=== PATIENT | male | born 1945 ===

== ENCOUNTER 2017-11-23 15:46 | Emergency (ER) | payer MEDICAID, MEDICARE ==
[2017-11-23 16:00] VITALS: BP 127/72; PULSE 51; RESP 16; TEMP 96.6; O2SAT 97
[2017-11-23] MEDS ORDERED: Iohexol 240 (50 ml) PO ONE (16:17)
--- NOTE | 2017-11-23 16:39 | ED PDOC ---
HPI: Abdomen Time Seen by Provider: 11/23/17 16:05 Chief Complaint (Nursing): Abdominal Pain Chief Complaint (Provider): Abdominal Pain History Per: Patient History/Exam Limitations: no limitations Onset/Duration Of Symptoms: Days (x3) Current Symptoms Are (Timing): Still Present Additional Complaint(s): 72 year old male with a past medical history of diabetes, who presents to the ED complaining of abdominal pain with associated chills, loss of appetite, nausea, malaise, fatigue, and generalized weakness x3 days. States pain is constant, has worsened since onset, and is localized to the RLQ. Denies fever, vomiting, diarrhea, constipation, black or bloody stools, or urinary symptoms. Says he was seen by his PMD today in [place], who advised he present to the ER for evaluation. PMD: Dr. Alexa Garduno Past Medical History Reviewed: Historical Data, Nursing Documentation, Vital Signs Vital Signs: Last Vital Signs Temp 96.6 F L 11/23/17 15:55 Pulse 51 L 11/23/17 15:55 Resp 16 11/23/17 15:55 BP 127/72 11/23/17 15:55 Pulse Ox 97 11/23/17 16:44 - Medical History PMH: Diabetes - Surgical History Other surgeries: Abdominal surgery - Family History Family History: States: Diabetes - Social History Current smoker - smoking cessation education provided: No Alcohol: None - Allergies Allergies/Adverse Reactions: Allergies Allergy/AdvReac Type Severity Reaction Status Date / Time No Known Allergies Allergy Verified 11/23/17 15:54 Review of Systems ROS Statement: Except As Marked, All Systems Reviewed And Found Negative (as per HPI) ENT: Positive for: Throat Pain Respiratory: Positive for: Cough (mild) - Laboratory Results Result Diagrams: 11/23/17 16:55 11/23/17 16:55 - ECG O2 Sat by Pulse Oximetry: 97 (RA) Pulse Ox Interpretation: Normal Medical Decision Making Medical Decision Making: Time: 16:17 Initial Impression: Abdominal pain. Differential diagnoses include, but are not limited to appendicitis, colitis, enteritis, dehydration, and sepsis Initial Plan: --CT Abdomen and pelvis w/ contrast --EKG --CMP --Lipase --TSH --Urine dipstick --CBC w/ differential --Iohexol 50 ml PO --Blood culture --Urine culture --IV Insertion --Glucose, Blood, POC --Urinalysis --Reevaluation Time: 20:46 CT Abdomen and Pelvis Findings: Lower thorax: Heart size is normal. There are postsurgical changes at the gastroesophageal junction. There is minimal scarring at the lung bases ABDOMEN: Liver: There is fatty infiltration of the liver. Gallbladder and bile ducts: unremarkable Pancreas: Pancreas is mildly atrophic. Spleen: unremarkable Adrenals: There is mild thickening of the right adrenal. There is diffuse thickening of the left adrenal. Kidneys and ureters: There are bilateral renal cysts.Kidneys and ureters are otherwise unremarkable. Stomach and bowel: There is been partial gastrectomy. There is a gastrojejunal anastomosis in the left upper quadrant. Jacqueline loop decompressed. There is no small bowel obstruction. Terminal ileum is unremarkable.structure suggestive of normal caliber appendix is identified in the right lower quadrant. There is no pericecal inflammation. There is a 1.9 x 2.4 cm soft tissue mass in the right lower quadrant adjacent to the base of the cecum which appears extrinsic to the cecum. Colon is incompletely distended which limits evaluation. A loop of sigmoid extends into a nonobstructing left inguinal hernia. Appendix: See stomach and bowel PELVIS: Bladder: Bladder is almost completely empty. There is mild bladder wall prominence. Reproductive: Prostate is mildly enlarged. There is prominence of seminal vesicles. ABDOMEN and PELVIS: Intraperitoneal space: There is no free air or free fluid. Bones/joints: There are degenerative changes in the osseus structures. Soft tissues: There is a small nonobstructing left inguinal hernia containing sigmoid. Vasculature: There are vascular calcifications. Aorta is mildly ectatic. Lymph nodes: There is no para-aortic adenopathy. IMPRESSION: Fatty liver; bilateral adrenal thickening left greater than right, no acute solid visceral abnormality; partial gastrectomy with gastrojejunal anastomosis, no small bowel obstruction; soft tissue mass in the right lower quadrant adjacent to the base of the cecum difficult to further characterize; nonobstructing left inguinal hernia containing sigmoid Additional nonemergent findings as described above. Scribe Attestation: Documented by Wesly Valentin, acting as a scribe for Any Almanza MD. Provider Scribe Attestation: All medical record entries made by the Scribe were at my direction and personally dictated by me. I have reviewed the chart and agree that the record accurately reflects my personal performance of the history, physical exam, medical decision making, and the department course for this patient. I have also personally directed, reviewed, and agree with the discharge instructions and disposition. Disposition - Clinical Impression Clinical Impression: Abdominal mass - Disposition Condition: UNKNOWN Instructions: Against Medical Advice (ED) Forms: [employer] (Bulgarian) Print Language: LAO
[2017-11-23 17:10] LABS: BASO % 0.8 % (0.0-2.0); EOS % 0.3 % (0.0-4.0); HEMOGLOBIN 15.9 g/dL (12.0-18.0); LYMPH % 22.9 % (20.0-40.0); MEAN CELL VOLUME 95.4 fl (80.0-94.0); MEAN CORPUSCULAR HEMOGLOBIN 31.4 pg (27.0-31.0); MEAN PLATELET VOLUME 7.4 fl (7.2-11.7); MONO # 0.8 K/uL (0.0-0.8); MONO % 17.9 % (0.0-10.0); NEUT # 2.6 K/uL (1.8-7.0); NEUT % 58.1 % (50.0-75.0); NRBC % 0.2 % (0.0-0.0); RBC 5.07 Mil/uL (4.40-5.90); RED CELL DISTRIBUTION WIDTH 12.1 % (11.5-14.5); WHITE BLOOD COUNT 4.5 K/uL (4.8-10.8)
[2017-11-23] MEDS ORDERED: Iohexol 240 (50 ml) ONE (17:16)
[2017-11-23 17:54] LABS: ALB/GLOB RATIO 1.3 (1.0-2.1); ALBUMIN 4.2 g/dL (3.5-5.0); ALT/SGPT 33 U/L (21-72); AST/SGOT 77 U/L (17-59); BLOOD UREA NITROGEN 19 mg/dl (9-20); CALCIUM 8.6 mg/dL (8.4-10.2); GFR AFRICAN-AMERICAN > 60; GFR NON-AFRICAN AMERICAN > 60
[2017-11-23 19:08] LABS: SQUAMOUS EPITHIAL < 1 /hpf (0-5); URINE BACTERIA RARE (<OCC); URINE BILIRUBIN NEGATIVE (NEGATIVE); URINE BLOOD SMALL (NEGATIVE); URINE CLARITY SLIGHTY-CLOUDY (Clear); URINE COLOR YELLOW (YELLOW); URINE GLUCOSE (UA) NEG (Normal); URINE LEUKOCYTE ESTERASE NEG Leu/uL (Negative); URINE NITRATE NEGATIVE (NEGATIVE); URINE PROTEIN NEGATIVE (NEGATIVE); URINE UROBILINOGEN 0.2-1.0 mg/dL (0.2-1.0)
[2017-11-23] MEDS ORDERED: Iohexol 300 100 ML IJ ONE (19:11)
[2017-11-23] MEDS ORDERED: Sodium Chloride 0.9% 50 ML IV ONE (19:11)
[2017-11-23 19:19] LABS: LIPASE 65 U/L (23-300)
--- NOTE | 2017-11-23 20:46 | CT ---
EXAM: CT Abdomen and Pelvis With Intravenous Contrast EXAM DATE/TIME: 11/23/2017 4:17 PM CLINICAL HISTORY: 72 years old, male; Pain; Abdominal pain; Localized; Right lower quadrant (rlq); Additional info: Abd pain rlq. Sent phy. Doc. TECHNIQUE: Axial computed tomography images of the abdomen and pelvis with intravenous contrast. All CT scans at this facility use one or more dose reduction techniques, viz.: automated exposure control; ma/kV adjustment per patient size (including targeted exams where dose is matched to indication; i.e. head); or iterative reconstruction technique. Coronal and sagittal reformatted images were created and reviewed. CONTRAST: 80 mL of [id number] administered intravenously. COMPARISON: CT ABD/PELV W/IV CONTR 2012-06-12 23:36 FINDINGS: Lower thorax: Heart size is normal. There are postsurgical changes at the gastroesophageal junction. There is minimal scarring at the lung bases ABDOMEN: Liver: There is fatty infiltration of the liver. Gallbladder and bile ducts: unremarkable Pancreas: Pancreas is mildly atrophic. Spleen: unremarkable Adrenals: There is mild thickening of the right adrenal. There is diffuse thickening of the left adrenal. Kidneys and ureters: There are bilateral renal cysts.Kidneys and ureters are otherwise unremarkable. Stomach and bowel: There is been partial gastrectomy. There is a gastrojejunal anastomosis in the left upper quadrant. Jacqueline loop decompressed. There is no small bowel obstruction. Terminal ileum is unremarkable.structure suggestive of normal caliber appendix is identified in the right lower quadrant. There is no pericecal inflammation. There is a 1.9 x 2.4 cm soft tissue mass in the right lower quadrant adjacent to the base of the cecum which appears extrinsic to the cecum. Colon is incompletely distended which limits evaluation. A loop of sigmoid extends into a nonobstructing left inguinal hernia. Appendix: See stomach and bowel PELVIS: Bladder: Bladder is almost completely empty. There is mild bladder wall prominence. Reproductive: Prostate is mildly enlarged. There is prominence of seminal vesicles. ABDOMEN and PELVIS: Intraperitoneal space: There is no free air or free fluid. Bones/joints: There are degenerative changes in the osseus structures. Soft tissues: There is a small nonobstructing left inguinal hernia containing sigmoid. Vasculature: There are vascular calcifications. Aorta is mildly ectatic. Lymph nodes: There is no para-aortic adenopathy. IMPRESSION: Fatty liver; bilateral adrenal thickening left greater than right, no acute solid visceral abnormality; partial gastrectomy with gastrojejunal anastomosis, no small bowel obstruction; soft tissue mass in the right lower quadrant adjacent to the base of the cecum difficult to further characterize; nonobstructing left inguinal hernia containing sigmoid Additional nonemergent findings as described above.
--- NOTE | 2017-11-24 18:13 | CARD ---
APPROVED REPORT EKG Measurement Heart [id number] <Conclusion> Sinus bradycardia Otherwise normal ECG
== END 2017-11-23 21:10 | disposition left against medical advice (07) ==
LOC: H.ER 15:46
DX: R10.9 Unspecified abdominal pain (principal); E11.9 Type 2 diabetes mellitus without complications
CPT/HCPCS: 74177; 80053; 81003; 82948; 83690; 84443; 85025; 87040; 87086; 93005; 99284; Q9966; Q9967

== ENCOUNTER 2017-11-24 07:04 | Emergency (ER) | payer MEDICARE, MEDICAID ==
[2017-11-24 07:26] VITALS: RESP 16; TEMP 97.7
[2017-11-24 07:27] VITALS: BMI 18.1
--- NOTE | 2017-11-24 08:35 | ED PDOC ---
HPI: Abdomen Time Seen by Provider: 11/24/17 07:40 Chief Complaint (Nursing): Abdominal Pain Chief Complaint (Provider): Abdominal Pain History Per: Patient History/Exam Limitations: no limitations Onset/Duration Of Symptoms: Days (x4) Additional Complaint(s): 72 year old male with medical history of diabetes, who presents to the emergency department with a complaint of lower abdominal pain associated with nausea and subjective fever ongoing for 4 days. Denied any vomiting, diarrhea, difficulty urinating, bloody urine, leg pain or swelling. Of note, patient was seen yesterday in ED for similar complaints but discharged AMA with notification of possible cancer seen on CT scan. PMD: Alexa Garduno MD Past Medical History Reviewed: Historical Data, Nursing Documentation, Vital Signs Vital Signs: Last Vital Signs Temp 97.7 F 11/24/17 07:40 Pulse 56 L 11/24/17 07:40 Resp 16 11/24/17 07:40 BP 106/67 11/24/17 07:40 Pulse Ox 97 11/24/17 10:05 - Medical History PMH: Diabetes - Surgical History Surgical History: Denies: No Surg Hx - Family History Family History: States: Diabetes - Social History Current smoker - smoking cessation education provided: No Alcohol: None Drugs: Denies - Allergies Allergies/Adverse Reactions: Allergies Allergy/AdvReac Type Severity Reaction Status Date / Time No Known Allergies Allergy Verified 11/23/17 15:54 Review of Systems ROS Statement: Except As Marked, All Systems Reviewed And Found Negative Constitutional: Positive for: Fever (subjective) Gastrointestinal: Positive for: Nausea, Abdominal Pain (lower). Negative for: Vomiting, Diarrhea Genitourinary Male: Negative for: Dysuria, Hematuria Musculoskeletal: Negative for: Leg Pain (or swelling) Physical Exam - Reviewed Nursing Documentation Reviewed: Yes Vital Signs Reviewed: Yes - Physical Exam Appears: Positive for: No Acute Distress Head Exam: Positive for: ATRAUMATIC, NORMAL INSPECTION, NORMOCEPHALIC Neck: Positive for: Normal, Painless ROM, Supple. Negative for: Decreased ROM Cardiovascular/Chest: Positive for: Regular Rate, Rhythm, Chest Non Tender, Other (barrel chest noted) Respiratory: Positive for: Normal Breath Sounds. Negative for: Decreased Breath Sounds, Respiratory Distress Pulses-Radial (L): 2+ Pulses-Radial (R): 2+ Gastrointestinal/Abdominal: Positive for: Soft, Tenderness (RLQ > LLQ). Negative for: Normal Exam Extremity: Positive for: Normal ROM (upper/lower), Deformity (clubbing of fingers), Other (5/5 ankle strength). Negative for: Pedal Edema Neurologic/Psych: Positive for: Alert (x2), Oriented. Negative for: Motor/ Sensory Deficits - Laboratory Results Result Diagrams: 11/24/17 09:24 11/24/17 09:24 - ECG O2 Sat by Pulse Oximetry: 97 (RA) Pulse Ox Interpretation: Normal Medical Decision Making Medical Decision Making: Initial Impression: Abdominal pain Initial Plan: * EKG * CMP * Lipase * CBC * Xray obstructive series * NS 1,000ml IV per 1,000mls/hr ____ CT Abdomen and Pelvis (11/23/17) Findings: Lower thorax: Heart size is normal. There are postsurgical changes at the gastroesophageal junction. There is minimal scarring at the lung bases ABDOMEN: Liver: There is fatty infiltration of the liver. Gallbladder and bile ducts: unremarkable Pancreas: Pancreas is mildly atrophic. Spleen: unremarkable Adrenals: There is mild thickening of the right adrenal. There is diffuse thickening of the left adrenal. Kidneys and ureters: There are bilateral renal cysts.Kidneys and ureters are otherwise unremarkable. Stomach and bowel: There is been partial gastrectomy. There is a gastrojejunal anastomosis in the left upper quadrant. Jacqueline loop decompressed. There is no small bowel obstruction. Terminal ileum is unremarkable.structure suggestive of normal caliber appendix is identified in the right lower quadrant. There is no pericecal inflammation. There is a 1.9 x 2.4 cm soft tissue mass in the right lower quadrant adjacent to the base of the cecum which appears extrinsic to the cecum. Colon is incompletely distended which limits evaluation. A loop of sigmoid extends into a nonobstructing left inguinal hernia. Appendix: See stomach and bowel PELVIS: Bladder: Bladder is almost completely empty. There is mild bladder wall prominence. Reproductive: Prostate is mildly enlarged. There is prominence of seminal vesicles. ABDOMEN and PELVIS: Intraperitoneal space: There is no free air or free fluid. Bones/joints: There are degenerative changes in the osseus structures. Soft tissues: There is a small nonobstructing left inguinal hernia containing sigmoid. Vasculature: There are vascular calcifications. Aorta is mildly ectatic. Lymph nodes: There is no para-aortic adenopathy. IMPRESSION: Fatty liver; bilateral adrenal thickening left greater than right, no acute solid visceral abnormality; partial gastrectomy with gastrojejunal anastomosis, no small bowel obstruction; soft tissue mass in the right lower quadrant adjacent to the base of the cecum difficult to further characterize; nonobstructing left inguinal hernia containing sigmoid Additional nonemergent findings as described above. Scribe Attestation: Documented by Claudia Heller, acting as a scribe for Shira Matos MD. Provider Scribe Attestation: All medical record entries made by the Scribe were at my direction and personally dictated by me. I have reviewed the chart and agree that the record accurately reflects my personal performance of the history, physical exam, medical decision making, and the department course for this patient. I have also personally directed, reviewed, and agree with the discharge instructions and disposition. Disposition - Clinical Impression Clinical Impression: Abdominal pain - Patient ED Disposition Is Patient to be Admitted: No Doctor Will See Patient In The: Office Counseled Patient/Family Regarding: Diagnosis, Need For Followup - Disposition Referrals: Alexa Garduno MD [Medical Doctor] - Disposition Time: 13:53 Condition: STABLE Additional Instructions: normal labs CT abdomen 11/23/2017 Abd US 11/24/2017 Obstructive series done 11/24/2017 Blood tests: 11/23/17 and 11/24/2017 Instructions: Abdominal Pain (ED) Forms: [employer] (Malay) Print Language: UKRAINIAN - POA Present On Arrival: None
[2017-11-24] MEDS ORDERED: Sodium Chloride 0.9% 1,000 ML IV STA (08:47)
[2017-11-24 09:27] LABS: EOS % 0.6 % (0.0-4.0); HEMOGLOBIN 15.1 g/dL (12.0-18.0); LYMPH # 1.2 K/uL (1.0-4.3); LYMPH % 30.2 % (20.0-40.0); MEAN CORPUSCULAR HEMOGLOBIN 31.4 pg (27.0-31.0); MEAN CORPUSCULAR HGB CONC 33.1 g/dL (33.0-37.0); MEAN PLATELET VOLUME 7.5 fl (7.2-11.7); MONO # 0.7 K/uL (0.0-0.8); NEUT % 50.2 % (50.0-75.0); RBC 4.8 Mil/uL (4.40-5.90); RED CELL DISTRIBUTION WIDTH 11.9 % (11.5-14.5)
[2017-11-24 09:53] LABS: ALB/GLOB RATIO 1.2 (1.0-2.1); ALBUMIN 3.5 g/dL (3.5-5.0); ALT/SGPT 47 U/L (21-72); AST/SGOT 49 U/L (17-59); BLOOD UREA NITROGEN 19 mg/dl (9-20); CALCIUM 8.7 mg/dL (8.4-10.2); GFR AFRICAN-AMERICAN > 60; GFR NON-AFRICAN AMERICAN > 60; LIPASE 78 U/L (23-300)
--- NOTE | 2017-11-24 11:15 | RAD ---
PROCEDURE: Radiographs of the chest and abdomen (obstructive series) HISTORY: abd pain COMPARISON: No prior. TECHNIQUE: AP radiograph of the chest, with upright and supine radiographs of the abdomen. FINDINGS: CHEST: Lungs: Hyperinflated lungs. Clear. Cardiovascular: Atherosclerotic aortic calcifications. Normal size heart. No pulmonary vascular congestion. Pleura: Flattened diaphragms. No pleural fluid. No pneumothorax. Other findings: None. ABDOMEN AND PELVIS: Bowel: Unremarkable bowel gas pattern. Retained enteric contrast in the descending and rectosigmoid colon. No evidence of mechanical obstruction. Free air: None. Bones: Unremarkable. Other findings: Epigastric region surgical clips. Excreted intravenous contrast in the urinary bladder. IMPRESSION: Unremarkable radiographs of chest and abdomen. No evidence of mechanical bowel obstruction.
--- NOTE | 2017-11-24 12:48 | US ---
PROCEDURE: Ultrasound of the Bladder HISTORY: RLQ tenderness, density on CT scan yesterday COMPARISON: None available. TECHNIQUE: Sonographic evaluation of the bladder an prostate was performed. FINDINGS: Urinary bladder contains internal mobile debris. No calculus or gross mass lesion. No free fluid in pelvis. Prevoid Volume: 187 cc. Post void residual: 178 cc. Prostate is heterogeneous and measures 5.4 x 4.6 x 4.5 centimeter compatible with volume of 57.7 mL. Peristalsing bowel seen in the right lower quadrant. IMPRESSION: Peristalsing bowel seen in the right lower quadrant. Enlarged, heterogeneous prostate. Mobile debris in the bladder.
[2017-11-24 14:21] VITALS: BP 114/60; PULSE 50; O2SAT 96
--- NOTE | 2017-11-24 18:07 | CARD ---
APPROVED REPORT EKG Measurement Heart [id number] <Conclusion> Sinus bradycardia Rightward axis Borderline ECG
== END 2017-11-24 14:20 | disposition home or self-care (01) ==
LOC: H.ER 07:04
DX: R10.9 Unspecified abdominal pain (principal); R11.0 Nausea; E11.9 Type 2 diabetes mellitus without complications; K76.0 Fatty (change of) liver, not elsewhere classified
CPT/HCPCS: 74022; 76856; 80053; 83690; 85025; 93005; 96360; 99283; J7040

== ENCOUNTER 2018-07-14 16:13 | Inpatient (IN) | payer MEDICARE, MEDICAID ==
--- NOTE | 2018-07-14 16:47 | ED PDOC ---
HPI: Chest Pain Time Seen by Provider: 07/14/18 16:29 Chief Complaint (Nursing): Chest Pain Chief Complaint (Provider): Chest Pain History Per: Patient History/Exam Limitations: no limitations Onset/Duration Of Symptoms: Days (x2) Current Symptoms Are (Timing): Still Present Additional Complaint(s): 73 year old female, with a past medical history of diabetes, presenting for evaluation of intermittent left sided chest pain x2 days. Patient denies any shortness of breath or nausea. Patient reports taking daily Aspirin. PMD: Dr. Toure ([place]) Past Medical History Reviewed: Historical Data, Nursing Documentation, Vital Signs Vital Signs: Last Vital Signs Temp 97.8 F 07/15/18 12:47 Pulse 55 L 07/15/18 12:47 Resp 20 07/15/18 12:47 BP 118/75 07/15/18 12:47 Pulse Ox 99 07/15/18 12:47 - Medical History PMH: Diabetes - Family History Family History: States: Diabetes - Social History Current smoker - smoking cessation education provided: No Alcohol: None - Home Medications Home Medications: Ambulatory Orders Medication Instructions Recorded Aspirin [Adult Low Dose Aspirin EC] 81 mg PO DAILY 07/14/18 Cholecalciferol [Vitamin D 1000 IU] 5,000 iu PO ONCE 07/14/18 SITagliptin [Januvia] 100 mg PO DAILY 07/14/18 - Allergies Allergies/Adverse Reactions: Allergies Allergy/AdvReac Type Severity Reaction Status Date / Time No Known Allergies Allergy Verified 07/14/18 16:24 LUIS M Risk Score for UA/NSTEMI - LUIS M Risk Score Age > 64: YES 3 or more CAD Risk Factors: NO Known CAD (Stenosis greater than 50%): NO Aspirin use in past 7 days: YES Severe Angina: NO EKG ST changes greater than 0.5mm: NO Positive Cardiac Marker: NO LUIS M Score: 2 Risk %: 8% Review of Systems ROS Statement: Except As Marked, All Systems Reviewed And Found Negative Cardiovascular: Positive for: Chest Pain (left sided) Respiratory: Negative for: Shortness of Breath Gastrointestinal: Negative for: Nausea Physical Exam - Reviewed Nursing Documentation Reviewed: Yes Vital Signs Reviewed: Yes - Physical Exam Appears: Positive for: Non-toxic, No Acute Distress (patient appears thin) Head Exam: Positive for: ATRAUMATIC, NORMAL INSPECTION, NORMOCEPHALIC Skin: Positive for: Normal Color, Warm, Dry. Negative for: Rash Eye Exam: Positive for: EOMI, Normal appearance, PERRL ENT: Positive for: Normal ENT Inspection Neck: Positive for: Normal, Painless ROM, Supple Cardiovascular/Chest: Positive for: Regular Rate, Rhythm. Negative for: Murmur Respiratory: Positive for: Normal Breath Sounds. Negative for: Respiratory Distress Gastrointestinal/Abdominal: Positive for: Normal Exam, Soft. Negative for: Tenderness Back: Positive for: Normal Inspection. Negative for: L CVA Tenderness, Vertebral Tenderness Extremity: Positive for: Normal ROM. Negative for: Pedal Edema, Deformity Neurologic/Psych: Positive for: Alert, Oriented (x3). Negative for: Motor/ Sensory Deficits - Laboratory Results Result Diagrams: 07/14/18 17:05 07/14/18 17:05 - ECG ECG: Positive for: Interpreted By Me, Viewed By Me Interpretation Of ECG: SB at 56 BPM, (-) acute ST-T changes O2 Sat by Pulse Oximetry: 100 (RA) Pulse Ox Interpretation: Normal Medical Decision Making Medical Decision Making: Plan: -EKG -CMP -Troponin -CBC -D Dimer -PTT/PT -CXR -FSBS -ekg monitor -Reevaluation 2 CXR FINDINGS: LUNGS: Lungs are hyperinflated, without focal infiltrate. Mild chronic interstitial change and scarring are identified. PLEURA: No pneumothorax or pleural fluid seen. CARDIOVASCULAR: Normal. OSSEOUS STRUCTURES: No significant abnormalities. VISUALIZED UPPER ABDOMEN: Normal. OTHER FINDINGS: None. IMPRESSION: Chronic hyperinflation and interstitial change without focal alveolar infiltrate or CHF. ----- Scribe Attestation: Documented by Wesly Valentin, acting as a scribe for Amparo Crespo MD. Provider Scribe Attestation: All medical record entries made by the Scribe were at my direction and personally dictated by me. I have reviewed the chart and agree that the record accurately reflects my personal performance of the history, physical exam, medical decision making, and the department course for this patient. I have also personally directed, reviewed, and agree with the discharge instructions and disposition. Disposition - Clinical Impression Clinical Impression: Chest pain - Patient ED Disposition Is Patient to be Admitted: Yes - Disposition Disposition Time: 17:45 Condition: STABLE - Pt Status Changed To: Hospital Disposition Of: Observation - POA Present On Arrival: None
--- NOTE | 2018-07-14 17:13 | RAD ---
Date of service: 07/14/2018 PROCEDURE: CHEST RADIOGRAPH, 1 VIEW HISTORY: CP COMPARISON: None available. FINDINGS: LUNGS: Lungs are hyperinflated, without focal infiltrate. Mild chronic interstitial change and scarring are identified. PLEURA: No pneumothorax or pleural fluid seen. CARDIOVASCULAR: Normal. OSSEOUS STRUCTURES: No significant abnormalities. VISUALIZED UPPER ABDOMEN: Normal. OTHER FINDINGS: None. IMPRESSION: Chronic hyperinflation and interstitial change without focal alveolar infiltrate or CHF.
[2018-07-14 17:15] LABS: BASO # 0.1 K/uL (0.0-0.2); BASO % 1.1 % (0.0-2.0); EOS # 0.2 K/uL (0.0-0.7); EOS % 3.6 % (0.0-4.0); HEMOGLOBIN 16.3 g/dL (12.0-18.0); LYMPH # 2.1 K/uL (1.0-4.3); MEAN CELL VOLUME 94.4 fl (80.0-94.0); MEAN CORPUSCULAR HEMOGLOBIN 31.7 pg (27.0-31.0); MEAN CORPUSCULAR HGB CONC 33.5 g/dL (33.0-37.0); MONO # 0.8 K/uL (0.0-0.8); MONO % 14.1 % (0.0-10.0); NEUT # 2.4 K/uL (1.8-7.0); NEUT % 43.2 % (50.0-75.0); NRBC % 0.1 % (0.0-0.0); RBC 5.16 Mil/uL (4.40-5.90); RED CELL DISTRIBUTION WIDTH 12.9 % (11.5-14.5); WHITE BLOOD COUNT 5.6 K/uL (4.8-10.8)
[2018-07-14 17:22] LABS: INR 0.9; PROTHROMBIN TIME 10.3 Seconds (9.8-13.1)
[2018-07-14 17:24] LABS: ALB/GLOB RATIO 1.3 (1.0-2.1); ALBUMIN 3.9 g/dL (3.5-5.0); ALT/SGPT 38 U/L (21-72); AST/SGOT 33 U/L (17-59); BLOOD UREA NITROGEN 11 mg/dl (9-20); CALCIUM 9.1 mg/dL (8.4-10.2); GFR NON-AFRICAN AMERICAN > 60
[2018-07-14 17:25] LABS: PARTIAL THROMBOPLASTIN TIME 35.2 Seconds (25.6-37.1)
[2018-07-14 17:28] LABS: D DIMER < 200 ng/mlDDU (0-230)
[2018-07-15] MEDS ORDERED: Pneumococcal 23-Valent Vaccine IM ONE (06:00)
[2018-07-15] MEDS ORDERED: Influenza Vaccine 18yr & older 0.5 ML/45 MCG SYR (Inactive don't use) IM ONE (06:00)
[2018-07-15] MEDS: Enoxaparin 40 mg Syringe SC SCH (08:38)
[2018-07-15] MEDS ORDERED: Dextrose 50% SYRINGE Inj (50 ml) IVP ONE (11:19)
[2018-07-15] MEDS ORDERED: Dextrose 50% SYRINGE Inj (50 ml) ONE (11:22)
[2018-07-15] MEDS: Insulin Regular 100 units/ml SC SCH ×3 (13:42→23:09)
--- NOTE | 2018-07-15 17:28 | HP ---
CHIEF COMPLAINT: Chest pain. HISTORY OF PRESENT ILLNESS: This is a 73-year-old male with known history of hypertension, who was having episodes of chest pain, so the patient was brought to the emergency room and was admitted for further management. REVIEW OF SYSTEMS: Positive for chest pain at the time of admission. Review of systems at this time is negative for headache, dizziness, syncope, loss of consciousness, chest pain, shortness of breath, nausea, vomiting, diarrhea, constipation, any new joint or extremity pain. Review of systems of all other organ systems are unremarkable. PAST MEDICAL HISTORY: Significant for hypertension. PAST SURGICAL HISTORY: Unremarkable. PERSONAL HISTORY: The patient is currently a nonsmoker, nondrinker, no substance abuse. MEDICATIONS: The patient is on multiple medications which is as per reconciliation sheet, which were reviewed and ordered. ALLERGIES: THE PATIENT IS NOT ALLERGIC TO ANY MEDICATIONS. FAMILY HISTORY: Noncontributory. PHYSICAL EXAMINATION: GENERAL: Well-built, well-nourished, 73-year-old male, in no acute distress. VITAL SIGNS: Temperature afebrile, pulse 80, respirations 18, and blood pressure 120/80. HEENT: Pupils reacting to light. No JVD. No thyromegaly. No lymphadenopathy. No nystagmus. Normocephalic, atraumatic skull. HEART: S1 and S2, normal and regular. No significant murmurs, gallops, or rubs are heard. LUNGS: Exam shows good bilateral air exchange. No rales or rhonchi. ABDOMEN: Soft, nontender. No organomegaly. No fluid. Bowel sounds are present and normal. EXTREMITIES: No edema. No calf swelling. No tenderness. No acute ischemia. [employer]: Exam is essentially unchanged and there is no sign of any acute gross focal, motor, or sensory neurological deficits. DIAGNOSTIC DATA: Available diagnostic data reviewed. Troponin 2 sets are negative. Telemetry monitoring does not reveal significant arrhythmias. ADMITTING IMPRESSION: Chest pain, acute coronary syndrome, and hypertension. PLAN: As ordered. Case and plan discussed with the patient. Shoaib Guerrero MD
[2018-07-15 20:15] VITALS: BMI 21.2
--- NOTE | 2018-07-15 21:56 | CP.PCM.CON ---
History of Present Illness - History of Present Illness History of Present Illness: Consultation for evaluation of chest pain HPI: Past Patient History - Past Medical History & Family History Past Medical History?: Yes - Past Social History Alcohol: None - ENDOCRINE/METABOLIC Hx Endocrine Disorders: Yes - MUSCULOSKELETAL/RHEUMATOLOGICAL Hx Falls: No - PSYCHIATRIC Hx Substance Use: No - SURGICAL HISTORY Hx Surgeries: Yes Other/Comment: abdominal SX - ANESTHESIA Hx Anesthesia: Yes Hx Anesthesia Reactions: No Meds Allergies/Adverse Reactions: Allergies Allergy/AdvReac Type Severity Reaction Status Date / Time No Known Allergies Allergy Verified 07/14/18 16:24 - Medications Medications: Current Medications Aspirin (Ecotrin) 81 mg PO DAILY [facility] Last Admin: 07/15/18 08:38 Dose: 81 mg Enoxaparin Sodium (Lovenox) 40 mg SC DAILY [facility] PRN Reason: Protocol Last Admin: 07/15/18 08:38 Dose: 40 mg Ergocalciferol (Drisdol 50,000 Intl Units Cap) 50,000 cap PO TUE [facility] Insulin Human Regular (Humulin R) 0 units SC ACCU-CHECK [facility] PRN Reason: Protocol Last Admin: 07/15/18 16:32 Dose: Not Given Sitagliptin Phosphate (Januvia) 100 mg PO DAILY [facility] Last Admin: 07/15/18 08:38 Dose: 100 mg Results - Vital Signs Recent Vital Signs: Last Vital Signs Temp 98.1 F 07/15/18 20:15 Pulse 60 07/15/18 20:15 Resp 16 07/15/18 20:15 BP 120/80 07/15/18 20:15 Pulse Ox 97 07/15/18 20:15 - Labs Result Diagrams: 07/14/18 17:05 07/14/18 17:05 Labs: Laboratory Results - last 24 hr 07/15/18 07/15/18 07/15/18 05:12 10:45 11:09 POC Glucose (mg/dL) 80 33 L* Troponin I < 0.0120 07/15/18 07/15/18 07/15/18 12:43 16:12 16:30 POC Glucose (mg/dL) 94 106 Troponin I < 0.0120 07/15/18 21:27 POC Glucose (mg/dL) 90 Troponin I Assessment & Plan (1) Chest pain Status: Acute (2) Abdominal pain Status: Acute
--- NOTE | 2018-07-16 06:45 | CARD ---
APPROVED REPORT Date of service: 07/14/2018 EKG Measurement Heart [id number] <Conclusion> Sinus bradycardia Rightward axis Borderline ECG
[2018-07-16] MEDS: Insulin Regular 100 units/ml SC SCH ×4 (08:11→23:00)
[2018-07-16] MEDS: Enoxaparin 40 mg Syringe SC SCH (08:14)
--- NOTE | 2018-07-16 20:09 | CP.PCM.PN ---
<Claudia Doan - Last Filed: 07/16/18 20:07> Subjective - Date & Time of Evaluation Date of Evaluation: 07/16/18 Time of Evaluation: 19:30 - Subjective Subjective: no further cp today, eating well Objective - Vital Signs/Intake and Output Vital Signs (last 24 hours): Temp Pulse Resp BP Pulse Ox 97.6 F 54 L 16 115/77 98 07/16/18 16:01 07/16/18 16:01 07/16/18 16:01 07/16/18 16:01 07/16/18 16:01 - Medications Medications: Current Medications Aspirin (Ecotrin) 81 mg PO DAILY [facility] Last Admin: 07/16/18 10:52 Dose: 81 mg Enoxaparin Sodium (Lovenox) 40 mg SC DAILY [facility] PRN Reason: Protocol Last Admin: 07/16/18 08:14 Dose: 40 mg Ergocalciferol (Drisdol 50,000 Intl Units Cap) 50,000 cap PO TUE [facility] Insulin Human Regular (Humulin R) 0 units SC ACCU-CHECK [facility] PRN Reason: Protocol Last Admin: 07/16/18 16:07 Dose: Not Given Sitagliptin Phosphate (Januvia) 100 mg PO DAILY [facility] Last Admin: 07/16/18 08:17 Dose: Not Given - Labs Labs: 07/14/18 17:05 07/14/18 17:05 PT 10.3 Seconds (9.8-13.1) 07/14/18 17:05 INR 0.9 07/14/18 17:05 APTT 35.2 Seconds (25.6-37.1) 07/14/18 17:05 - Constitutional Appears: Well, Non-toxic, No Acute Distress - Head Exam Head Exam: ATRAUMATIC, NORMAL INSPECTION - Eye Exam Eye Exam: EOMI, Normal appearance - ENT Exam ENT Exam: Mucous Membranes Moist, Normal Exam - Neck Exam Neck Exam: Full ROM, Normal Inspection - Respiratory Exam Respiratory Exam: Clear to Ausculation Bilateral - Cardiovascular Exam Cardiovascular Exam: REGULAR RHYTHM - GI/Abdominal Exam GI & Abdominal Exam: Soft, Normal Bowel Sounds - Rectal Exam Rectal Exam: NORMAL INSPECTION - Extremities Exam Extremities Exam: Full ROM, Normal Capillary Refill, Normal Inspection - Back Exam Back Exam: NORMAL INSPECTION - Neurological Exam Neurological Exam: Alert, Awake, Oriented x3 - Skin Skin Exam: Normal Color, Warm Assessment and Plan - Assessment and Plan (Free Text) Assessment: 73 y/o with CP on admission, now resolved, trop negative, cardiology consulted, continue current management <Shoaib Guerrero - Last Filed: 07/17/18 10:51> Objective - Vital Signs/Intake and Output Vital Signs (last 24 hours): Temp Pulse Resp BP Pulse Ox 97.9 F 53 L 20 111/74 96 07/17/18 09:10 07/17/18 09:10 07/17/18 09:10 07/17/18 09:10 07/17/18 09:10 - Medications Medications: Current Medications Aspirin (Ecotrin) 81 mg PO DAILY [facility] Last Admin: 07/17/18 09:54 Dose: 81 mg Enoxaparin Sodium (Lovenox) 40 mg SC DAILY [facility] PRN Reason: Protocol Last Admin: 07/17/18 09:54 Dose: 40 mg Ergocalciferol (Drisdol 50,000 Intl Units Cap) 50,000 cap PO TUE [facility] Insulin Human Regular (Humulin R) 0 units SC ACCU-CHECK [facility] PRN Reason: Protocol Last Admin: 07/17/18 07:45 Dose: Not Given Sitagliptin Phosphate (Januvia) 100 mg PO DAILY [facility] Last Admin: 07/16/18 08:17 Dose: Not Given - Labs Labs: 07/14/18 17:05 07/14/18 17:05 PT 10.3 Seconds (9.8-13.1) 07/14/18 17:05 INR 0.9 07/14/18 17:05 APTT 35.2 Seconds (25.6-37.1) 07/14/18 17:05 Assessment and Plan - Assessment and Plan (Free Text) Assessment: Patient was personally seen and examined by me in rounds with residents. Available labs and diagnostic data reviewed. Case, Patient's condition and management plan discussed with residents in rounds. Agree with resident's progress note. Plan: As ordered.
--- NOTE | 2018-07-16 21:57 | CARD ---
APPROVED REPORT Date of service: 07/15/2018 Protocol: TAIWO Test Type: Stress Nuclear Medications: ASA 81MG, LOVENOX 40MG, HUMULIN INSULIN, JANUVIA 100MG Medical History: HTN, DIABETES Target HR: 148 bpm Resting ECG: normal Resting Heart Rate: 57 bpm Resting Blood Pressure: 110/70mmHg submaximum (85%): 126 bpm TEST SUMMARY [id number]/70.0. [id number]/70.0. PRETESTHYPERV.00:[id number]/70.0. PRETESTWARM-[id number]/70.0. EXERCISESTAGE 103:[id number]/68.0. EXERCISESTAGE 203:[id number]/60.0. EXERCISESTAGE 303:[id number]/60.0. EXERCISESTAGE 400:[id number]/60.0. [id number]..[id number]/70.0. POST EXERCISE Reason for Termination: Fatigue Target HR: No Max HR: 123 bpm 85% of Maximum Predicted HR: 148 bpm Exercise duration: 09:32 min:sec, 4 Stage Exercise capacity: 10.9METs Max Blood Pressure: 170/70mmHg Blood Pressure response to exercise: normal resting BP - appropriate response Heart Rate response to exercise: appropriate Chest Pain: No, none Angina index: 0 Arrhythmia: No, none ST Change: No, none Deviation: 0 mm EXAM: Myocardial Perfusion REST/STRESS Image QualityGood Imaging Protocol The imaging protocol used to acquire images was Rest Tc-99m/stress Tc-99m 1 day Rest Spect myocardial perfusion imaging was performed in supine position 60 minutes following the injection of 10 mCi of Tc-99 Myoview. Time of rest injection: 8:05 Time of rest imagin:00 At peak stress, the patient was injected intravenously with 30mCi of Tc-99 tetrofosmin after an infusion time of minutes and seconds. Time of stress injection: 10:29 Time of stress imagin:30 Gated Stress Spect was performed 120 minutes after intravenous Tc-99 Myoview injection. The images were gated to evaluate regional wall motion and calculate ventricular ejection fraction. NUCLEAR IMAGE INTERPRETATION Study quality was good. Left Ventricular size was Normal at Rest and Stress. Lung uptake was Normal. Left Ventricular ejection fraction is 76%. LV Perfusion 1 Perfusion Defect Location: mid anteroseptal Perfusion Defect Size: Small (1-2 segments) Perfusion Defect Severity: Mild Type of Perfusion Defect: Partially Reversible TCD/TID: Yes CONCLUSION 1. - Small sized mild intensity anteroseptal defect partially reversible 2. - Borderline TID 3. - Normal LVEF Recommendation - Further ischemic evaluation based on clinical symptoms
[2018-07-17] MEDS: Insulin Regular 100 units/ml SC SCH ×4 (07:45→23:00)
[2018-07-17] MEDS ORDERED: Ergocalciferol 50,000 Intl Units Cap PO SCH (09:00)
--- NOTE | 2018-07-17 09:36 | PN ---
DATE: 07/17/2018 SUBJECTIVE: The patient was seen and examined. Interim events noted. Consults noted and appreciated. Cardiology followup and intervention noted and appreciated. . The patient denies any chest pain or shortness of breath. PHYSICAL EXAMINATION: GENERAL: The patient is in no acute distress. VITAL SIGNS: Stable. HEART: S1 and S2, normal and regular. LUNGS: Good bilateral air exchange. ABDOMEN: Soft and nontender. EXTREMITIES: No edema. No calf swelling. No tenderness. No acute ischemia. RN UTILIZATION MANAGEMENT UM: Exam is essentially unchanged. DIAGNOSTIC DATA: Available diagnostic data reviewed. mainly positive. Accu-Cheks are acceptable. Telemetry monitoring does not reveal significant edema. ASSESSMENT AND PLAN: Overall, the patient's general medical condition is stable. Plan as ordered. Shoaib Guerrero MD
[2018-07-17] MEDS: Enoxaparin 40 mg Syringe SC SCH (09:54)
[2018-07-17] MEDS: Metoprolol Succinate 25 mg XL Tab PO SCH (17:29)
--- NOTE | 2018-07-18 06:17 | CP.PCM.PN ---
Subjective - Date & Time of Evaluation Date of Evaluation: 07/16/18 Time of Evaluation: 11:00 - Subjective Subjective: stress testing today Objective - Vital Signs/Intake and Output Vital Signs (last 24 hours): Temp Pulse Resp BP Pulse Ox 98.2 F 51 L 18 124/82 97 07/18/18 04:48 07/18/18 04:48 07/18/18 04:48 07/18/18 04:48 07/18/18 04:48 - Medications Medications: Current Medications Aspirin (Ecotrin) 81 mg PO DAILY [facility] Last Admin: 07/17/18 09:54 Dose: 81 mg Atorvastatin Calcium (Lipitor) 20 mg PO DAILY [facility] Last Admin: 07/17/18 17:30 Dose: 20 mg Enoxaparin Sodium (Lovenox) 40 mg SC DAILY [facility] PRN Reason: Protocol Last Admin: 07/17/18 09:54 Dose: 40 mg Ergocalciferol (Drisdol 50,000 Intl Units Cap) 50,000 cap PO TUE [facility] Last Admin: 07/17/18 10:35 Dose: 50,000 cap Insulin Human Regular (Humulin R) 0 units SC ACCU-CHECK [facility] PRN Reason: Protocol Last Admin: 07/17/18 23:00 Dose: Not Given Metoprolol Succinate (Toprol Xl) 25 mg PO DAILY [facility] Last Admin: 07/17/18 17:29 Dose: 25 mg Sitagliptin Phosphate (Januvia) 100 mg PO DAILY [facility] Last Admin: 07/16/18 08:17 Dose: Not Given - Labs Labs: 07/14/18 17:05 07/14/18 17:05 PT 10.3 Seconds (9.8-13.1) 07/14/18 17:05 INR 0.9 07/14/18 17:05 APTT 35.2 Seconds (25.6-37.1) 07/14/18 17:05 - Constitutional Appears: Well - Head Exam Head Exam: ATRAUMATIC, NORMAL INSPECTION, NORMOCEPHALIC - Eye Exam Eye Exam: EOMI, Normal appearance, PERRL Pupil Exam: NORMAL ACCOMODATION, PERRL - ENT Exam ENT Exam: Mucous Membranes Moist, Normal Exam - Neck Exam Neck Exam: Full ROM, Normal Inspection. absent: Lymphadenopathy - Respiratory Exam Respiratory Exam: Clear to Ausculation Bilateral, NORMAL BREATHING PATTERN - Cardiovascular Exam Cardiovascular Exam: REGULAR RHYTHM, +S1, +S2. absent: Murmur - GI/Abdominal Exam GI & Abdominal Exam: Soft, Normal Bowel Sounds. absent: Tenderness - Extremities Exam Extremities Exam: Full ROM, Normal Capillary Refill, Normal Inspection. absent : Joint Swelling, Pedal Edema - Back Exam Back Exam: NORMAL INSPECTION - Neurological Exam Neurological Exam: Alert, Awake, CN II-XII Intact, Normal Gait, Oriented x3 - Psychiatric Exam Psychiatric exam: Normal Affect, Normal Mood - Skin Skin Exam: Dry, Intact, Normal Color, Warm Assessment and Plan (1) Chest pain Assessment & Plan: stress testing today Status: Acute (2) Abdominal pain Status: Acute
--- NOTE | 2018-07-18 06:18 | CP.PCM.PN ---
Subjective - Date & Time of Evaluation Date of Evaluation: 07/18/18 Time of Evaluation: 06:17 - Subjective Subjective: cath scheduled for 1 pm today at [facility] Objective - Vital Signs/Intake and Output Vital Signs (last 24 hours): Temp Pulse Resp BP Pulse Ox 98.2 F 51 L 18 124/82 97 07/18/18 04:48 07/18/18 04:48 07/18/18 04:48 07/18/18 04:48 07/18/18 04:48 - Medications Medications: Current Medications Aspirin (Ecotrin) 81 mg PO DAILY [facility] Last Admin: 07/17/18 09:54 Dose: 81 mg Atorvastatin Calcium (Lipitor) 20 mg PO DAILY [facility] Last Admin: 07/17/18 17:30 Dose: 20 mg Enoxaparin Sodium (Lovenox) 40 mg SC DAILY [facility] PRN Reason: Protocol Last Admin: 07/17/18 09:54 Dose: 40 mg Ergocalciferol (Drisdol 50,000 Intl Units Cap) 50,000 cap PO TUE [facility] Last Admin: 07/17/18 10:35 Dose: 50,000 cap Insulin Human Regular (Humulin R) 0 units SC ACCU-CHECK [facility] PRN Reason: Protocol Last Admin: 07/17/18 23:00 Dose: Not Given Metoprolol Succinate (Toprol Xl) 25 mg PO DAILY [facility] Last Admin: 07/17/18 17:29 Dose: 25 mg Sitagliptin Phosphate (Januvia) 100 mg PO DAILY [facility] Last Admin: 07/16/18 08:17 Dose: Not Given - Labs Labs: 07/14/18 17:05 07/14/18 17:05 PT 10.3 Seconds (9.8-13.1) 07/14/18 17:05 INR 0.9 07/14/18 17:05 APTT 35.2 Seconds (25.6-37.1) 07/14/18 17:05 - Constitutional Appears: Well - Head Exam Head Exam: ATRAUMATIC, NORMAL INSPECTION, NORMOCEPHALIC - Eye Exam Eye Exam: EOMI, Normal appearance, PERRL Pupil Exam: NORMAL ACCOMODATION, PERRL - ENT Exam ENT Exam: Mucous Membranes Moist, Normal Exam - Neck Exam Neck Exam: Full ROM, Normal Inspection. absent: Lymphadenopathy - Respiratory Exam Respiratory Exam: Clear to Ausculation Bilateral, NORMAL BREATHING PATTERN - Cardiovascular Exam Cardiovascular Exam: REGULAR RHYTHM, +S1, +S2. absent: Murmur - GI/Abdominal Exam GI & Abdominal Exam: Soft, Normal Bowel Sounds. absent: Tenderness - Extremities Exam Extremities Exam: Full ROM, Normal Capillary Refill, Normal Inspection. absent : Joint Swelling, Pedal Edema - Back Exam Back Exam: NORMAL INSPECTION - Neurological Exam Neurological Exam: Alert, Awake, CN II-XII Intact, Normal Gait, Oriented x3 - Psychiatric Exam Psychiatric exam: Normal Affect, Normal Mood - Skin Skin Exam: Dry, Intact, Normal Color, Warm Assessment and Plan (1) Chest pain Assessment & Plan: cath at today at 1 pm cont asa, bb, statins Status: Acute (2) Abdominal pain Status: Acute
[2018-07-18] MEDS: Insulin Regular 100 units/ml SC SCH ×3 (09:12→22:29)
[2018-07-18] MEDS: Enoxaparin 40 mg Syringe SC SCH (09:49)
[2018-07-18] MEDS: Metoprolol Succinate 25 mg XL Tab PO SCH (09:53)
--- NOTE | 2018-07-18 14:37 | CP.PCM.PN ---
Subjective - Date & Time of Evaluation Date of Evaluation: 07/18/18 Time of Evaluation: 07:00 - Subjective Subjective: No events overnight. Pt denies chest pain or sob. Reminded pt that he is getting cath procedure done today. Pt is aware. Has been NPO overnight. Objective - Vital Signs/Intake and Output Vital Signs (last 24 hours): Temp Pulse Resp BP Pulse Ox 97.5 F L 54 L 18 108/62 97 07/18/18 11:51 07/18/18 11:51 07/18/18 11:51 07/18/18 11:51 07/18/18 11:51 - Medications Medications: Current Medications Aspirin (Ecotrin) 81 mg PO DAILY [facility] Last Admin: 07/18/18 09:53 Dose: 81 mg Atorvastatin Calcium (Lipitor) 20 mg PO DAILY [facility] Last Admin: 07/18/18 09:53 Dose: 20 mg Enoxaparin Sodium (Lovenox) 40 mg SC DAILY [facility] PRN Reason: Protocol Last Admin: 07/18/18 09:49 Dose: Not Given Ergocalciferol (Drisdol 50,000 Intl Units Cap) 50,000 cap PO TUE [facility] Last Admin: 07/17/18 10:35 Dose: 50,000 cap Insulin Human Regular (Humulin R) 0 units SC ACCU-CHECK [facility] PRN Reason: Protocol Last Admin: 07/18/18 09:12 Dose: Not Given Metoprolol Succinate (Toprol Xl) 25 mg PO DAILY [facility] Last Admin: 07/18/18 09:53 Dose: 25 mg Sitagliptin Phosphate (Januvia) 100 mg PO DAILY [facility] Last Admin: 07/16/18 08:17 Dose: Not Given - Labs Labs: 07/14/18 17:05 07/14/18 17:05 PT 10.3 Seconds (9.8-13.1) 07/14/18 17:05 INR 0.9 07/14/18 17:05 APTT 35.2 Seconds (25.6-37.1) 07/14/18 17:05 - Constitutional Appears: Well, No Acute Distress - Head Exam Head Exam: NORMAL INSPECTION - Eye Exam Eye Exam: Normal appearance - ENT Exam ENT Exam: Mucous Membranes Moist - Neck Exam Neck Exam: Full ROM - Respiratory Exam Respiratory Exam: Clear to Ausculation Bilateral. absent: Rales, Rhonchi - Cardiovascular Exam Cardiovascular Exam: REGULAR RHYTHM, +S1, +S2. absent: Murmur - GI/Abdominal Exam GI & Abdominal Exam: Soft, Normal Bowel Sounds. 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 Plan for cath today at [facility]. Discussed case with Dr. Cesar Ocasio, PGY2
[2018-07-19 00:32] VITALS: RESP 18
[2018-07-19] MEDS: Insulin Regular 100 units/ml SC SCH (06:41)
[2018-07-19] MEDS: Enoxaparin 40 mg Syringe SC SCH (08:13)
[2018-07-19] MEDS: Metoprolol Succinate 25 mg XL Tab PO SCH (08:13)
[2018-07-19 08:14] VITALS: BP 120/79; PULSE 73
[2018-07-19 08:15] VITALS: TEMP 97.4; O2SAT 97
--- NOTE | 2018-07-19 09:22 | CP.PCM.PN ---
Subjective - Date & Time of Evaluation Date of Evaluation: 07/19/18 Time of Evaluation: 09:15 - Subjective Subjective: s/p LHCx showing moderate LAD and RCA disease Objective - Vital Signs/Intake and Output Vital Signs (last 24 hours): Temp Pulse Resp BP Pulse Ox 97.4 F L 73 18 120/79 97 07/19/18 08:14 07/19/18 08:14 07/19/18 08:14 07/19/18 08:14 07/19/18 08:14 - Medications Medications: Current Medications Aspirin (Ecotrin) 81 mg PO DAILY [facility] Last Admin: 07/19/18 08:13 Dose: 81 mg Atorvastatin Calcium (Lipitor) 20 mg PO DAILY [facility] Last Admin: 07/19/18 08:13 Dose: 20 mg Enoxaparin Sodium (Lovenox) 40 mg SC DAILY [facility] PRN Reason: Protocol Last Admin: 07/19/18 08:13 Dose: 40 mg Ergocalciferol (Drisdol 50,000 Intl Units Cap) 1 cap PO TUE [facility] Insulin Human Regular (Humulin R) 0 units SC ACCU-CHECK [facility] PRN Reason: Protocol Last Admin: 07/19/18 06:41 Dose: Not Given Metoprolol Succinate (Toprol Xl) 25 mg PO DAILY [facility] Last Admin: 07/19/18 08:13 Dose: 25 mg Sitagliptin Phosphate (Januvia) 100 mg PO DAILY [facility] Last Admin: 07/16/18 08:17 Dose: Not Given - Labs Labs: 07/14/18 17:05 07/14/18 17:05 PT 10.3 Seconds (9.8-13.1) 07/14/18 17:05 INR 0.9 07/14/18 17:05 APTT 35.2 Seconds (25.6-37.1) 07/14/18 17:05 - Constitutional Appears: Well - Head Exam Head Exam: ATRAUMATIC, NORMAL INSPECTION, NORMOCEPHALIC - Eye Exam Eye Exam: EOMI, Normal appearance, PERRL Pupil Exam: NORMAL ACCOMODATION, PERRL - ENT Exam ENT Exam: Mucous Membranes Moist, Normal Exam - Neck Exam Neck Exam: Full ROM, Normal Inspection. absent: Lymphadenopathy - Respiratory Exam Respiratory Exam: Clear to Ausculation Bilateral, NORMAL BREATHING PATTERN - Cardiovascular Exam Cardiovascular Exam: REGULAR RHYTHM, +S1, +S2, Murmur - GI/Abdominal Exam GI & Abdominal Exam: Soft, Normal Bowel Sounds. absent: Tenderness - Extremities Exam Extremities Exam: Full ROM, Normal Capillary Refill, Normal Inspection. absent : Joint Swelling, Pedal Edema - Back Exam Back Exam: NORMAL INSPECTION - Neurological Exam Neurological Exam: Alert, Awake, CN II-XII Intact, Normal Gait, Oriented x3 - Psychiatric Exam Psychiatric exam: Normal Affect, Normal Mood - Skin Skin Exam: Dry, Intact, Normal Color, Warm Assessment and Plan (1) CAD (coronary artery disease) Assessment & Plan: moderate 2 vessel CAD ( 55% RCA , 65% LAD ) maximize medical therapy per guidelines ( BB, statins, nitrates, asa) re-evaluate ischemic sx on maximal medical therapy Status: Acute (2) Chest pain Status: Acute (3) Abdominal pain Status: Acute
--- NOTE | 2018-07-19 14:06 | CP.PCM.DIS ---
Provider - Provider Date of Admission: 07/17/18 10:24 Attending physician: Shoaib Guerrero MD Time Spent in preparation of Discharge (in minutes): 35 Diagnosis - Discharge Diagnosis (1) Chest pain Status: Acute Hospital Course - Lab Results Lab Results: Most Recent Lab Values WBC 5.6 K/uL (4.8-10.8) 07/14/18 17:05 RBC 5.16 Mil/uL (4.40-5.90) 07/14/18 17:05 Hgb 16.3 g/dL (12.0-18.0) 07/14/18 17:05 Hct 48.7 % (35.0-51.0) 07/14/18 17:05 MCV 94.4 fl (80.0-94.0) H 07/14/18 17:05 MCH 31.7 pg (27.0-31.0) H 07/14/18 17:05 MCHC 33.5 g/dL (33.0-37.0) 07/14/18 17:05 RDW 12.9 % (11.5-14.5) 07/14/18 17:05 Plt Count 202 K/uL (130-400) 07/14/18 17:05 MPV 7.0 fl (7.2-11.7) L 07/14/18 17:05 Neut % (Auto) 43.2 % (50.0-75.0) L 07/14/18 17:05 Lymph % (Auto) 38.0 % (20.0-40.0) 07/14/18 17:05 Saunders % (Auto) 14.1 % (0.0-10.0) H 07/14/18 17:05 Eos % (Auto) 3.6 % (0.0-4.0) 07/14/18 17:05 Baso % (Auto) 1.1 % (0.0-2.0) 07/14/18 17:05 Neut # (Auto) 2.4 K/uL (1.8-7.0) 07/14/18 17:05 Lymph # (Auto) 2.1 K/uL (1.0-4.3) 07/14/18 17:05 Saunders # (Auto) 0.8 K/uL (0.0-0.8) 07/14/18 17:05 Eos # (Auto) 0.2 K/uL (0.0-0.7) 07/14/18 17:05 Baso # (Auto) 0.1 K/uL (0.0-0.2) 07/14/18 17:05 PT 10.3 Seconds (9.8-13.1) 07/14/18 17:05 INR 0.9 07/14/18 17:05 APTT 35.2 Seconds (25.6-37.1) 07/14/18 17:05 D-Dimer, Quantitative < 200 ng/mlDDU (0-230) 07/14/18 17:05 Sodium 139 mmol/l (132-148) 07/14/18 17:05 Potassium 4.3 MMOL/L (3.6-5.0) 07/14/18 17:05 Chloride 104 mmol/L (98-107) 07/14/18 17:05 Carbon Dioxide 29 mmol/L (22-30) 07/14/18 17:05 Anion Gap 10 (10-20) 07/14/18 17:05 BUN 11 mg/dl (9-20) 07/14/18 17:05 Creatinine 0.8 mg/dl (0.8-1.5) 07/14/18 17:05 Est GFR ( Amer) > 60 07/14/18 17:05 Est GFR (Non-Af Amer) > 60 07/14/18 17:05 POC Glucose (mg/dL) 101 mg/dL (65-110) 07/19/18 05:09 Random Glucose 68 mg/dL (75-110) L 07/14/18 17:05 Calcium 9.1 mg/dL (8.4-10.2) 07/14/18 17:05 Total Bilirubin 0.4 mg/dl (0.2-1.3) 07/14/18 17:05 AST 33 U/L (17-59) 07/14/18 17:05 ALT 38 U/L (21-72) 07/14/18 17:05 Alkaline Phosphatase 85 U/L (38-126) 07/14/18 17:05 Troponin I < 0.0120 ng/mL (0.00-0.120) 07/15/18 16:30 Total Protein 6.9 G/DL (6.3-8.2) 07/14/18 17:05 Albumin 3.9 g/dL (3.5-5.0) 07/14/18 17:05 Globulin 3.1 gm/dL (2.2-3.9) 07/14/18 17:05 Albumin/Globulin Ratio 1.3 (1.0-2.1) 07/14/18 17:05 - Hospital Course Hospital Course: 73 y/o with pmhx of DM presented to [facility] ED with complaints of CP for 2 days. On admission, Myocardial perfusion scan was significant for anteroseptal defect. Loader Operator Supervisor, Dr. Benavidez, was consulted who completed cardiac at [facility]. As per his assessment, pt was noted to have moderate 2 vessel CAD ( RCA and LAD). Pt was recommended to have medical optimization and re-evaluate ischemic symptoms once optimized. Pt was stable on day of discharge. Discharge medications: ASA 81mg daily Lipitor 20mg daily Isosorbide Mononitrate 30mg po daily Metropolol 25mg po daily Discharge instructions: F/U with PMD, Dr. Morales. Discharge Exam - Head Exam Head Exam: ATRAUMATIC, NORMAL INSPECTION, NORMOCEPHALIC - Eye Exam Eye Exam: Normal appearance - ENT Exam ENT Exam: Mucous Membranes Moist - Respiratory Exam Respiratory Exam: Clear to PA & Lateral. absent: Respiratory Distress - Cardiovascular Exam Cardiovascular Exam: REGULAR RHYTHM, +S1, +S2. absent: Systolic Murmur - GI/Abdominal Exam GI & Abdominal Exam: Normal Bowel Sounds - Extremities Exam Extremities exam: pedal edema Additional comments: catheter site examined, normal, no swelling redness or tenderness. good distal pulses - Neurological Exam Neurological exam: Alert, Oriented x3 - Psychiatric Exam Psychiatric exam: Normal Affect - Skin Skin Exam: Normal Color, Warm Discharge Plan - Discharge Medications Prescriptions: Atorvastatin [Lipitor] 20 mg PO DAILY #30 tab Isosorbide Mononitrate ER [Imdur ER] 30 mg PO DAILY #30 tab Metoprolol Succinate XL [Toprol XL] 25 mg PO DAILY #30 tab - Follow Up Plan Condition: STABLE Disposition: HOME/ ROUTINE Instructions: Chest Pain (DC)
[2018-07-24] MEDS ORDERED: Ergocalciferol 50,000 Intl Units Cap PO SCH (09:00)
== END 2018-07-19 10:15 | disposition home health service (06) | DRG 287 ==
LOC: H.ER 16:13 → H.ERHOLD 17:46 → H.TEL 18:42 → OBSVTOIN 07-17 10:24
PROVIDERS: ADMIT Internal Medicine; ATTEND Internal Medicine
PROC: 3E0234Z Introduction of Serum, Toxoid and Vaccine into Muscle, Percutaneous Approach (ICD-10-PCS; principal; 2018-07-15)
PROC: 4A023N7 Measurement of Cardiac Sampling and Pressure, Left Heart, Percutaneous Approach (ICD-10-PCS; 2018-07-18)
PROC: B206YZZ Plain Radiography of Right and Left Heart using Other Contrast (ICD-10-PCS; 2018-07-18)
DX: I25.119 Atherosclerotic heart disease of native coronary artery with unspecified angina pectoris (principal); I24.9 Acute ischemic heart disease, unspecified; I10 Essential (primary) hypertension; E11.9 Type 2 diabetes mellitus without complications; Z23 Encounter for immunization; Z79.82 Long term (current) use of aspirin; Z79.84 Long term (current) use of oral hypoglycemic drugs

== ENCOUNTER 2018-08-28 08:17 | Emergency (ER) | payer MEDICARE, MEDICAID ==
[2018-08-28 08:18] VITALS: BMI 21.2
[2018-08-28 08:46] VITALS: PULSE 88; RESP 18; TEMP 97; O2SAT 100
--- NOTE | 2018-08-28 09:25 | ED PDOC ---
HPI: Headache Time Seen by Provider: 08/28/18 08:45 Chief Complaint (Nursing): Headache Chief Complaint (Provider): Headache History Per: Patient History/Exam Limitations: no limitations Onset/Duration Of Symptoms: Days (x1) Associated Symptoms: denies: Vomiting Additional Complaint(s): 73 years old male with history of CAD and hypertension presents to ER for evaluation of intermittent headache and nose bleed onset yesterday. Patient reports he was sitting at home watching TV when he felt a left sided headache and left sided neck pain with left sided nose bleed that stopped briefly. He states he continued to have intermittent headache and neck pain as well as d izziness. Patient reports another episode of nose bleed this morning. He denies any fever, chest pain, shortness of breath, syncope, vomiting, abdominal pain, bloody stools, dizziness at this time or other bleeding. PMD: Dr. Yadiel Pantoja Past Medical History Reviewed: Historical Data, Nursing Documentation, Vital Signs Vital Signs: Last Vital Signs Temp 97 F L 08/28/18 08:32 Pulse 88 08/28/18 08:32 Resp 18 08/28/18 08:32 BP Pulse Ox 100 08/28/18 08:32 - Medical History PMH: CAD, Diabetes, HTN - Surgical History Surgical History: No Surg Hx - Family History Family History: States: Diabetes - Social History Current smoker - smoking cessation education provided: No Alcohol: None Drugs: Denies - Home Medications Home Medications: Ambulatory Orders Medication Instructions Recorded RX: Aspirin [Adult Low Dose 81 mg PO DAILY 07/14/18 Aspirin EC] RX: Cholecalciferol [Vitamin D 5,000 iu PO ONCE 07/14/18 1000 IU] RX: SITagliptin [Januvia] 100 mg PO DAILY 07/14/18 Isosorbide Mononitrate ER [Imdur 30 mg PO DAILY #30 tab 07/19/18 ER] RX: Atorvastatin [Lipitor] 20 mg PO DAILY #30 tab 07/19/18 RX: Metoprolol Succinate XL 25 mg PO DAILY #30 tab 07/19/18 [Toprol XL] - Allergies Allergies/Adverse Reactions: Allergies Allergy/AdvReac Type Severity Reaction Status Date / Time No Known Allergies Allergy Verified 07/16/18 13:21 Review of Systems ROS Statement: Except As Marked, All Systems Reviewed And Found Negative Constitutional: Negative for: Fever Cardiovascular: Negative for: Chest Pain Respiratory: Negative for: Shortness of Breath Gastrointestinal: Negative for: Vomiting, Abdominal Pain, Hematochezia Musculoskeletal: Positive for: Neck Pain (Left sided) Neurological: Positive for: Headache (Left sided), Dizziness Physical Exam - Reviewed Nursing Documentation Reviewed: Yes Vital Signs Reviewed: Yes - Physical Exam Appears: Positive for: Non-toxic, No Acute Distress Head Exam: Positive for: ATRAUMATIC, NORMOCEPHALIC Skin: Positive for: Normal Color, Warm, Dry Eye Exam: Positive for: Normal appearance, EOMI, PERRL ENT: Positive for: Normal ENT Inspection. Negative for: Other (nose bleed) Neck: Positive for: Painless ROM (with tenderness of to lymph node of left sided submandibular area), Supple (No swelling or redness) Cardiovascular/Chest: Positive for: Regular Rate, Rhythm. Negative for: JVD, Murmur Respiratory: Positive for: Normal Breath Sounds. Negative for: Wheezing Gastrointestinal/Abdominal: Positive for: Normal Exam, Soft. Negative for: Tenderness Extremity: Positive for: Normal ROM. Negative for: Tenderness, Swelling Neurologic/Psych: Positive for: Alert, Oriented (x3) - Laboratory Results Result Diagrams: 08/28/18 09:25 08/28/18 09:25 - ECG O2 Sat by Pulse Oximetry: 100 (RA) Pulse Ox Interpretation: Normal - Progress Re-evaluation Time: 14:00 Condition: Re-examined, Improved Medical Decision Making Medical Decision Making: Time: 908 Initial Impression: headache, resolved nose bleed and neck pain. Rule out primary headaches, migraines, tension headaches and arterial dissection. Differential includes but not limited to lymphadenopathy and temporal arteritis. Initial Plan: --CT Head w/o contrast --ECG --BMP --CBC --Erythrocyte sedimentation rate --PTT --PT 1016 CT Head FINDINGS: HEMORRHAGE: No intracranial hemorrhage. BRAIN: There are mild chronic microangiopathic changes. There is no mass, mass effect or abnormal extra-axial fluid collection. There is no territorial infarction. The midline sagittal structures are normal. VENTRICLES: The ventricles are normal in size, shape and configuration. CALVARIUM: There is no calvarial fracture or extracranial soft tissue swelling. PARANASAL SINUSES: Predominantly clear. MASTOID AIR CELLS: Predominantly clear. OTHER FINDINGS: None. IMPRESSION: No acute intracranial abnormality. Mild chronic microangiopathic changes and mild age-related global parenchymal volume loss. 13:15 Head/Neck CTA FINDINGS: HEAD: Right: The intracranial internal carotid artery, and anterior and middle cerebral arteries are widely patent. Left: The intracranial internal carotid artery, and anterior and middle cerebral arteries are widely patent. Posterior circulation: The visualized intracranial vertebral arteries, basilar artery and posterior cerebral arteries are widely patent. There is no endoluminal filling defect to suggest thrombus. There is no intracranial saccular aneurysm. NECK: There is a three vessel aortic arch. There is no stenosis at the origins of the great vessels at the level of the aortic arch. No atherosclerotic calcification or mural plaque present. Right Carotid: On the right, the common carotid, internal carotid and external carotid arteries are widely patent. There is no hemodynamically significant stenosis in the internal carotid artery by NASCET criteria. Left Carotid: On the left, the common carotid, internal carotid and external carotid arteries are widely patent. There is no hemodynamically significant stenosis in the internal carotid artery by NASCET criteria. The vertebral arteries are widely patent. The right vertebral artery is hypoplastic, an anatomic variant. The visualized soft tissues of the neck are normal. Incompletely imaged is a 7 mm nodule with slightly irregular margins in the right upper lobe. There is mild centrilobular emphysema in the visualized lungs. There is a 9 x 5 x 12 mm polypoid nodule along the right lateral tracheal wall. IMPRESSION: 1. No evidence of endoluminal thrombus,occlusion or definite significant stenosis in the intracranial arteries. 2. No evidence of hemodynamically significant stenosis in the internal carotid arteries. 3. Patent bilateral vertebral arteries. 4. 9 x 5 x 12 mm polypoid nodule along the right tracheal wall and incompletely imaged 7 mm nodule with slightly irregular margins in the right upper lobe. Dedicated CT scan of the thorax on a nonemergent basis is recommended for definitive evaluation. Scribe Attestation: Documented by Aaliyah Sanchez, acting as a scribe for Parth Lopez MD. Provider Scribe Attestation: All medical record entries made by the Scribe were at my direction and personally dictated by me. I have reviewed the chart and agree that the record accurately reflects my personal performance of the history, physical exam, medical decision making, and the department course for this patient. I have also personally directed, reviewed, and agree with the discharge instructions and disposition. Disposition - Clinical Impression Clinical Impression: Headache, Pulmonary nodule, Epistaxis, Neck pain - Patient ED Disposition Is Patient to be Admitted: No Doctor Will See Patient In The: Office Counseled Patient/Family Regarding: Studies Performed, Diagnosis, Need For Followup - Disposition Disposition: Routine/Home Disposition Time: 14:20 Condition: GOOD Additional Instructions: [facility], thank you for letting us take care of you today. Your provider was Parth Lopez MD and you were treated for VOMITING. The emergency medical care you received today was directed at your acute symptoms. If you were prescribed any medication, please fill it and take as directed. It may take several days for your symptoms to resolve. Return to the Emergency Department if your symptoms worsen, do not improve, or if you have any other problems. Please contact your doctor or call one of the physicians/clinics you have been referred to that are listed on the Patient Visit Information form that is included in your discharge packet. Bring any paperwork you were given at discharge with you along with any medications you are taking to your follow up visit. Our treatment cannot replace ongoing medical care by a primary care provider outside of the emergency department. Thank you for allowing the [facility] team to be part of your care today. If you had an X-Ray or CT scan: A Radiologist will review the ED reading if any change in treatment is needed we will contact you. If you had a blood, urine, or wound culture: It will take several days for the results, if any change in treatment is needed we will contact you. If you had an STI test: It will take 48 hours for the results. Please call after 1 week if you have not heard back. Instructions: Nosebleeds, Headache, Adult (DC), Pulmonary Nodule Print Language: KITTITIAN
[2018-08-28 09:30] VITALS: BP 128/83
[2018-08-28 09:57] LABS: PROTHROMBIN TIME 11.4 Seconds (9.8-13.1)
[2018-08-28 10:00] LABS: PARTIAL THROMBOPLASTIN TIME 27.6 Seconds (25.6-37.1)
[2018-08-28 10:03] LABS: BASO # 0.1 K/uL (0.0-0.2); BASO % 1.1 % (0.0-2.0); EOS # 0.2 K/uL (0.0-0.7); EOS % 4.2 % (0.0-4.0); HEMOGLOBIN 16.4 g/dL (12.0-18.0); LYMPH # 1.4 K/uL (1.0-4.3); LYMPH % 29.9 % (20.0-40.0); MEAN CELL VOLUME 94.3 fl (80.0-94.0); MEAN CORPUSCULAR HEMOGLOBIN 31.6 pg (27.0-31.0); MEAN CORPUSCULAR HGB CONC 33.6 g/dL (33.0-37.0); MONO # 0.5 K/uL (0.0-0.8); MONO % 10.7 % (0.0-10.0); NEUT # 2.6 K/uL (1.8-7.0); NEUT % 54.1 % (50.0-75.0); NRBC % 0.2 % (0.0-0.0); RBC 5.19 Mil/uL (4.40-5.90); WHITE BLOOD COUNT 4.8 K/uL (4.8-10.8)
[2018-08-28 10:06] LABS: BLOOD UREA NITROGEN 14 mg/dl (9-20); CALCIUM 9.4 mg/dL (8.4-10.2); GFR NON-AFRICAN AMERICAN > 60
--- NOTE | 2018-08-28 10:20 | CT ---
Date of service: 08/28/2018 PROCEDURE: CT HEAD WITHOUT CONTRAST. HISTORY: Headache and neck pain COMPARISON: None available. TECHNIQUE: Axial computed tomography images were obtained through the head/brain without intravenous contrast. Radiation dose: Total exam DLP = 763.96 mGy-cm. This CT exam was performed using one or more of the following dose reduction techniques: Automated exposure control, adjustment of the mA and/or kV according to patient size, and/or use of iterative reconstruction technique. FINDINGS: HEMORRHAGE: No intracranial hemorrhage. BRAIN: There are mild chronic microangiopathic changes. There is no mass, mass effect or abnormal extra-axial fluid collection. There is no territorial infarction. The midline sagittal structures are normal. VENTRICLES: The ventricles are normal in size, shape and configuration. CALVARIUM: There is no calvarial fracture or extracranial soft tissue swelling. PARANASAL SINUSES: Predominantly clear. MASTOID AIR CELLS: Predominantly clear. OTHER FINDINGS: None. IMPRESSION: No acute intracranial abnormality. Mild chronic microangiopathic changes and mild age-related global parenchymal volume loss.
[2018-08-28] MEDS ORDERED: Iodixanol 320 MG/ML 100 ML BOTTLE IV ONE (12:06)
[2018-08-28] MEDS ORDERED: Sodium Chloride 0.9% 50 ML IV ONE (12:07)
--- NOTE | 2018-08-28 13:19 | CT ---
PROCEDURE: CTA HEAD AND NECK WITH CONTRAST HISTORY: left headache and neck pain COMPARISON: None available. TECHNIQUE: Initial noncontrast head CT was performed. Subsequently, CT angiogram of the head and neck were performed after the intravenous administration of 80 mL of Omnipaque 350. Contiguous 1.5mm thick images were obtained in the axial plane of the neck. 2-D coronal and sagittal MPR images were obtained. Imaging postprocessing was performed with 3-D images also obtained. A delayed contrast head CT was also obtained. This CT exam was performed using one or more of the following dose reduction techniques: Automated exposure control, adjustment of the mA and/or kV according to patient size, and/or use of iterative reconstruction technique. Contrast dose: 95 mL Visipaque 320 Radiation dose: Total exam DLP = 420.92 mGy-cm. FINDINGS: HEAD: Right: The intracranial internal carotid artery, and anterior and middle cerebral arteries are widely patent. Left: The intracranial internal carotid artery, and anterior and middle cerebral arteries are widely patent. Posterior circulation: The visualized intracranial vertebral arteries, basilar artery and posterior cerebral arteries are widely patent. There is no endoluminal filling defect to suggest thrombus. There is no intracranial saccular aneurysm. NECK: There is a three vessel aortic arch. There is no stenosis at the origins of the great vessels at the level of the aortic arch. No atherosclerotic calcification or mural plaque present. Right Carotid: On the right, the common carotid, internal carotid and external carotid arteries are widely patent. There is no hemodynamically significant stenosis in the internal carotid artery by NASCET criteria. Left Carotid: On the left, the common carotid, internal carotid and external carotid arteries are widely patent. There is no hemodynamically significant stenosis in the internal carotid artery by NASCET criteria. The vertebral arteries are widely patent. The right vertebral artery is hypoplastic, an anatomic variant. The visualized soft tissues of the neck are normal. Incompletely imaged is a 7 mm nodule with slightly irregular margins in the right upper lobe. There is mild centrilobular emphysema in the visualized lungs. There is a 9 x 5 x 12 mm polypoid nodule along the right lateral tracheal wall. IMPRESSION: 1. No evidence of endoluminal thrombus,occlusion or definite significant stenosis in the intracranial arteries. 2. No evidence of hemodynamically significant stenosis in the internal carotid arteries. 3. Patent bilateral vertebral arteries. 4. 9 x 5 x 12 mm polypoid nodule along the right tracheal wall and incompletely imaged 7 mm nodule with slightly irregular margins in the right upper lobe. Dedicated CT scan of the thorax on a nonemergent basis is recommended for definitive evaluation.
--- NOTE | 2018-08-28 15:46 | CARD ---
APPROVED REPORT Date of service: 08/28/2018 EKG Measurement Heart [id number] HI [id number] [id number] <Conclusion> Sinus bradycardia Otherwise normal ECG
== END 2018-08-28 15:17 | disposition home or self-care (01) ==
LOC: H.ER 08:17
DX: R51 Headache (principal); R04.0 Epistaxis; M54.2 Cervicalgia; R91.1 Solitary pulmonary nodule; E11.9 Type 2 diabetes mellitus without complications; I10 Essential (primary) hypertension; I25.10 Atherosclerotic heart disease of native coronary artery without angina pectoris; Z79.82 Long term (current) use of aspirin
CPT/HCPCS: 70450; 70496; 70498; 80048; 84484; 85025; 85610; 85651; 85730; 93005; 99285; Q9967

== ENCOUNTER 2019-01-22 17:49 | Observation (INO) | payer MEDICARE, MEDICAID ==
--- NOTE | 2019-01-22 18:38 | ED PDOC ---
HPI: Chest Pain Time Seen by Provider: 01/22/19 18:15 Chief Complaint (Nursing): Chest Pain Chief Complaint (Provider): Chest pain History Per: Slurry Control Operator Helper (Keith [id number]) History/Exam Limitations: no limitations Onset/Duration Of Symptoms: Persistent Current Symptoms Are (Timing): Still Present Quality: "Pain" Associated Symptoms: denies: Nausea, Dyspnea, Diaphoresis Additional Complaint(s): 73yo male, with history of CHF, hypertension, comes to ER reporting 2 weeks of headache, chest pain and palpitations. He also reports he has had nasal congestion, and cough and has been using a nasal spray. Otherwise, no fever, chills, shortness of breath or abdominal pain. No additional complaints. Patient took ASA 81mg PO prior to arrival. PMD: Dr. Garduno Past Medical History Reviewed: Historical Data, Nursing Documentation, Vital Signs Vital Signs: Last Vital Signs Temp 97.6 F 01/22/19 17:59 Pulse 61 01/22/19 18:16 Resp 18 01/22/19 17:59 BP 117/77 01/22/19 17:59 Pulse Ox 96 01/22/19 17:59 - Medical History PMH: CAD, CHF, Diabetes, HTN - Surgical History Other surgeries: abdominal surgery - Family History Family History: States: Diabetes - Social History Current smoker - smoking cessation education provided: No Alcohol: None Drugs: Denies - Home Medications Home Medications: Ambulatory Orders Medication Instructions Recorded Aspirin [Adult Low Dose Aspirin EC] 81 mg PO DAILY 07/14/18 Cholecalciferol [Vitamin D 1000 IU] 5,000 iu PO ONCE 07/14/18 SITagliptin [Januvia] 100 mg PO DAILY 07/14/18 Atorvastatin [Lipitor] 20 mg PO DAILY #30 tab 07/19/18 Isosorbide Mononitrate ER [Imdur 30 mg PO DAILY #30 tab 07/19/18 ER] Metoprolol Succinate XL [Toprol XL] 25 mg PO DAILY #30 tab 07/19/18 - Allergies Allergies/Adverse Reactions: Allergies Allergy/AdvReac Type Severity Reaction Status Date / Time No Known Allergies Allergy Verified 01/22/19 21:18 LUIS M Risk Score for UA/NSTEMI - LUIS M Risk Score Age > 64: YES 3 or more CAD Risk Factors: NO Known CAD (Stenosis greater than 50%): NO Aspirin use in past 7 days: NO Severe Angina: NO EKG ST changes greater than 0.5mm: NO Positive Cardiac Marker: NO LUIS M Score: 1 Risk %: 5% Review of Systems ROS Statement: Except As Marked, All Systems Reviewed And Found Negative Constitutional: Negative for: Fever, Chills ENT: Positive for: Nose Congestion Cardiovascular: Positive for: Chest Pain, Palpitations Respiratory: Positive for: Cough. Negative for: Shortness of Breath Neurological: Positive for: Headache. Negative for: Weakness, Numbness Physical Exam - Reviewed Nursing Documentation Reviewed: Yes Vital Signs Reviewed: Yes - Physical Exam Appears: Positive for: Non-toxic, No Acute Distress (elderly male) Head Exam: Positive for: ATRAUMATIC, NORMAL INSPECTION, NORMOCEPHALIC Skin: Positive for: Normal Color Eye Exam: Positive for: EOMI, PERRL ENT: Positive for: Other (moist mucosa). Negative for: Pharyngeal Erythema Neck: Positive for: Normal, Supple Cardiovascular/Chest: Positive for: Regular Rate, Rhythm, Chest Non Tender. Negative for: Tachycardia Respiratory: Positive for: Normal Breath Sounds. Negative for: Rales, Rhonchi, Wheezing Gastrointestinal/Abdominal: Positive for: Soft. Negative for: Tenderness, Guarding, Rebound Back: Positive for: Normal Inspection Extremity: Positive for: Normal ROM. Negative for: Pedal Edema Neurological/Psych: Positive for: Awake, Alert, Oriented (x 3). Negative for: Motor/Sensory Deficits - Laboratory Results Result Diagrams: 01/23/19 05:10 01/23/19 05:10 - ECG ECG: Positive for: Interpreted By Me, Viewed By Me ECG Rhythm: Positive for: Normal QRS, Normal ST Segment, Sinus Rhythm. Negative for: ST/T Changes Rate: 62 O2 Sat by Pulse Oximetry: 96 (RA) Pulse Ox Interpretation: Normal Medical Decision Making Medical Decision Makinyo male with chest pain, palpitations Plan: -- Labs -- EKG -- CXR -- ASA 81mg PO 20:[address] Guerrero covers dr pate pts pcp. Patient accepted by Dr. Guerrero for chest pain. 22:45 Dr. Benavidez was made aware of patient and will follow up in the morning. Scribe Attestation: Documented by Seble Self, acting as a scribe for Lasha Marr MD Provider Scribe Attestation: All medical record entries made by the Scribe were at my direction and personally dictated by me. I have reviewed the chart and agree that the record accurately reflects my personal performance of the history, physical exam, medical decision making, and the department course for this patient. I have also personally directed, reviewed, and agree with the discharge instructions and dis position. Disposition - Clinical Impression Clinical Impression: Acute chest pain - Patient ED Disposition Is Patient to be Admitted: Yes Counseled Patient/Family Regarding: Studies Performed, Diagnosis - Disposition Disposition Time: 20:55 Condition: STABLE - Pt Status Changed To: Hospital Disposition Of: Observation
[2019-01-22 18:59] LABS: BASO # 0.1 K/uL (0.0-0.2); BASO % 0.9 % (0.0-2.0); EOS # 0.2 K/uL (0.0-0.7); EOS % 2.8 % (0.0-4.0); HEMOGLOBIN 14.4 g/dL (12.0-18.0); LYMPH # 1.7 K/uL (1.0-4.3); LYMPH % 28.3 % (20.0-40.0); MEAN CELL VOLUME 95.8 fl (80.0-94.0); MEAN CORPUSCULAR HEMOGLOBIN 31.5 pg (27.0-31.0); MEAN CORPUSCULAR HGB CONC 32.9 g/dL (33.0-37.0); MONO # 0.6 K/uL (0.0-0.8); MONO % 9.9 % (0.0-10.0); NEUT # 3.4 K/uL (1.8-7.0); NEUT % 58.1 % (50.0-75.0); NRBC % 0.1 % (0.0-0.0); RBC 4.57 Mil/uL (4.40-5.90); RED CELL DISTRIBUTION WIDTH 13.1 % (11.5-14.5); WHITE BLOOD COUNT 5.9 K/uL (4.8-10.8)
[2019-01-22 19:00] LABS: ALB/GLOB RATIO 1.4 (1.0-2.1); ALBUMIN 3.6 g/dL (3.5-5.0); ALT/SGPT 29 U/L (21-72); AST/SGOT 31 U/L (17-59); BLOOD UREA NITROGEN 22 mg/dl (9-20); CALCIUM 9.2 mg/dL (8.4-10.2); GFR NON-AFRICAN AMERICAN > 60
[2019-01-22] MEDS ORDERED: Cholecalciferol 1,000 INTLU TAB PO SCH (23:45)
[2019-01-23 00:17] VITALS: BMI 20.1
[2019-01-23 05:59] LABS: HEMOGLOBIN 14.2 g/dL (12.0-18.0); MEAN CORPUSCULAR HEMOGLOBIN 31.5 pg (27.0-31.0); MEAN CORPUSCULAR HGB CONC 33.6 g/dL (33.0-37.0); RBC 4.51 Mil/uL (4.40-5.90); RED CELL DISTRIBUTION WIDTH 12.5 % (11.5-14.5); WHITE BLOOD COUNT 5.9 K/uL (4.8-10.8)
[2019-01-23 06:10] LABS: MEAN CELL VOLUME 93.6 fl (80.0-94.0)
[2019-01-23 06:25] LABS: ALB/GLOB RATIO 1.3 (1.0-2.1); ALBUMIN 3.1 g/dL (3.5-5.0); BLOOD UREA NITROGEN 23 mg/dl (9-20); GFR NON-AFRICAN AMERICAN > 60
[2019-01-23 07:00] LABS: ALT/SGPT 28 U/L (21-72); AST/SGOT 28 U/L (17-59); CALCIUM 8.9 mg/dL (8.4-10.2)
--- NOTE | 2019-01-23 08:26 | CARD ---
APPROVED REPORT Date of service: 01/22/2019 EKG Measurement Heart [id number] FL [id number] [id number] <Conclusion> Normal sinus rhythm Rightward axis Borderline ECG
--- NOTE | 2019-01-23 09:28 | CP.PCM.HP ---
History of Present Illness - History of Present Illness History of Present Illness: 72 year old male with medical history of diabetes, CHF, HTN who presents to the emergency department with a complaint of exertional chest pain associated with palpations, and headache for the past 2 weeks. Also complaints of cough and c ongestion for several days. Denies fever, sob, LE edema Of note, pt had Cath procedure at [facility] on Jun and was noted to have moderate 2 vessel CAD (RCA and LAD) via Cath by Dr. Benavidez. Treated with medical optimization at that time. EKG in ED- NSR, Right axis deviation Cxray normal Troponins negative x3 S/P ASA 81 (pt took ASA 81 prior) PMD: Dr. Garduno Present on Admission - Present on Admission Any Indicators Present on Admission: No History of DVT/PE: No History of Uncontrolled Diabetes: No Urinary Catheter: No Decubitus Ulcer Present: No Past Patient History - Infectious Disease Hx of Infectious Diseases: None - Past Medical History & Family History Past Medical History?: Yes - Past Social History Smoking Status: Former Smoker - CARDIAC Hx Cardiac Disorders: Yes Hx Congestive Heart Failure: Yes Hx Hypertension: Yes - PULMONARY Hx Respiratory Disorders: No - NEUROLOGICAL Hx Neurological Disorder: No - HEENT Hx HEENT Problems: No - RENAL Hx Chronic Kidney Disease: No - ENDOCRINE/METABOLIC Hx Endocrine Disorders: Yes - HEMATOLOGICAL/ONCOLOGICAL Hx Blood Disorders: No - INTEGUMENTARY Hx Dermatological Problems: No - MUSCULOSKELETAL/RHEUMATOLOGICAL Hx Musculoskeletal Disorders: No Hx Falls: No - GASTROINTESTINAL Hx Gastrointestinal Disorders: No - GENITOURINARY/GYNECOLOGICAL Hx Genitourinary Disorders: No - PSYCHIATRIC Hx Psychophysiologic Disorder: No Hx Substance Use: No - SURGICAL HISTORY Hx Surgeries: Yes Other/Comment: abdominal surgery - ANESTHESIA Hx Anesthesia: Yes Hx Anesthesia Reactions: No Meds Allergies/Adverse Reactions: Allergies Allergy/AdvReac Type Severity Reaction Status Date / Time No Known Allergies Allergy Verified 01/22/19 21:18 Physical Exam - Constitutional Appears: No Acute Distress - Eye Exam Eye Exam: Normal appearance - ENT Exam ENT Exam: Mucous Membranes Moist - Respiratory Exam Respiratory Exam: Clear to Auscultation Bilateral. absent: Rales, Wheezes - Cardiovascular Exam Cardiovascular Exam: REGULAR RHYTHM - GI/Abdominal Exam GI & Abdominal Exam: Soft. absent: Tenderness - Extremities Exam Extremities exam: Negative for: pedal edema - Neurological Exam Neurological exam: Alert, Oriented x3 Results - Vital Signs Recent Vital Signs: Last Vital Signs Temp 97.5 F L 01/23/19 08:17 Pulse 59 L 01/23/19 08:17 Resp 18 01/23/19 08:17 BP 122/81 01/23/19 08:17 Pulse Ox 94 L 01/23/19 08:17 - Labs Result Diagrams: 01/23/19 05:10 01/23/19 05:10 Labs: Laboratory Results - last 24 hr 01/22/19 01/22/19 01/23/19 18:00 18:00 01:50 WBC 5.9 RBC 4.57 Hgb 14.4 D Hct 43.7 MCV 95.8 H MCH 31.5 H MCHC 32.9 L RDW 13.1 Plt Count 224 MPV 7.0 L Neut % (Auto) 58.1 Lymph % (Auto) 28.3 [place] % (Auto) 9.9 Eos % (Auto) 2.8 Baso % (Auto) 0.9 Neut # (Auto) 3.4 Lymph # (Auto) 1.7 [place] # (Auto) 0.6 Eos # (Auto) 0.2 Baso # (Auto) 0.1 Sodium 141 Potassium 4.5 Chloride 105 Carbon Dioxide 28 Anion Gap 13 BUN 22 H Creatinine 1.0 Est GFR ( Amer) > 60 Est GFR (Non-Af Amer) > 60 POC Glucose (mg/dL) Random Glucose 84 Calcium 9.2 Total Bilirubin 0.4 AST 31 ALT 29 Alkaline Phosphatase 83 Troponin I < 0.0120 < 0.0120 Total Protein 6.3 Albumin 3.6 Globulin 2.7 Albumin/Globulin Ratio 1.4 01/23/19 01/23/19 01/23/19 05:10 05:10 06:23 WBC 5.9 RBC 4.51 Hgb 14.2 Hct 42.2 MCV 93.6 D MCH 31.5 H MCHC 33.6 RDW 12.5 Plt Count 230 MPV Neut % (Auto) Lymph % (Auto) [place] % (Auto) Eos % (Auto) Baso % (Auto) Neut # (Auto) Lymph # (Auto) [place] # (Auto) Eos # (Auto) Baso # (Auto) Sodium 139 Potassium 3.9 Chloride 104 Carbon Dioxide 30 Anion Gap 9 L BUN 23 H Creatinine 1.1 Est GFR ( Amer) > 60 Est GFR (Non-Af Amer) > 60 POC Glucose (mg/dL) 91 Random Glucose 82 Calcium 8.9 Total Bilirubin 0.4 AST 28 ALT 28 Alkaline Phosphatase 70 Troponin I < 0.0120 Total Protein 5.6 L Albumin 3.1 L Globulin 2.5 Albumin/Globulin Ratio 1.3 Assessment & Plan - Assessment and Plan (Free Text) Assessment: 72 year old male with medical history of diabetes, CHF, HTN who presents to the emergency department with a complaint of exertional chest pain associated with palpations, and headache for the past 2 weeks. #Chest pain #Headache #Cough - EKG no acute ischemic changes seen. Cardiac enzymes negative x3 - Cardiology Consulted - Headache mild w/o red flag signs; controlled with Tylenol prn - C/W home medications as ordered - Cough, likely viral, no systemic signs, Cxray normal, supportive care
[2019-01-23] MEDS: Cholecalciferol 1,000 INTLU TAB PO SCH (09:42)
[2019-01-23] MEDS: Metoprolol Succinate 25 mg XL Tab PO SCH (09:43)
--- NOTE | 2019-01-23 12:08 | CP.PCM.CON ---
<Minh Mcneal - Last Filed: 01/23/19 14:35> History of Present Illness - History of Present Illness History of Present Illness: Minh Mcneal, PGY-1, Cardiology Consult Note for Dr. Benavidez 73 year old male with past medical history of diabetes mellitus, congestive heart failure, and hypertension presents with 2 weeks of nonexertional pulsating chest pain. Patient reported that the pain was constant and did not radiate. In addition, there were no exacerbating or remitting factors. Patient was congested and has shortness of breath when he sleeps. Patient denies nausea, diaphoresis, dizziness, left arm pain, jaw pain. PMH: as stated above PSH: stomach surgery "many years ago" FMHx: denies SHx: stopped smoking 12 years ago. Smoked 3 cigarettes a day for 6 years Allergies: NKDA Patient had prior cardiac catheterization in 06/2018 Review of Systems - Review of Systems Review of Systems: except as mentioned in HPI Past Patient History - Infectious Disease Hx of Infectious Diseases: None - Past Medical History & Family History Past Medical History?: Yes - Past Social History Smoking Status: Former Smoker - CARDIAC Hx Cardiac Disorders: Yes Hx Congestive Heart Failure: Yes Hx Hypertension: Yes - PULMONARY Hx Respiratory Disorders: No - NEUROLOGICAL Hx Neurological Disorder: No - HEENT Hx HEENT Problems: No - RENAL Hx Chronic Kidney Disease: No - ENDOCRINE/METABOLIC Hx Endocrine Disorders: Yes - HEMATOLOGICAL/ONCOLOGICAL Hx Blood Disorders: No - INTEGUMENTARY Hx Dermatological Problems: No - MUSCULOSKELETAL/RHEUMATOLOGICAL Hx Musculoskeletal Disorders: No Hx Falls: No - GASTROINTESTINAL Hx Gastrointestinal Disorders: No - GENITOURINARY/GYNECOLOGICAL Hx Genitourinary Disorders: No - PSYCHIATRIC Hx Psychophysiologic Disorder: No Hx Substance Use: No - SURGICAL HISTORY Hx Surgeries: Yes Other/Comment: abdominal surgery - ANESTHESIA Hx Anesthesia: Yes Hx Anesthesia Reactions: No Meds Allergies/Adverse Reactions: Allergies Allergy/AdvReac Type Severity Reaction Status Date / Time No Known Allergies Allergy Verified 01/22/19 21:18 - Medications Medications: Current Medications Acetaminophen (Tylenol 325mg Tab) 650 mg PO Q6 PRN PRN Reason: Pain, Mild (1-3) Aspirin (Ecotrin) 81 mg PO DAILY [facility] Last Admin: 01/23/19 09:42 Dose: 81 mg Atorvastatin Calcium (Lipitor) 20 mg PO DAILY [facility] Last Admin: 01/23/19 09:43 Dose: 20 mg Cholecalciferol (Vitamin D) 5,000 intlu PO DAILY [facility] Last Admin: 01/23/19 09:42 Dose: 5,000 intlu Enoxaparin Sodium (Lovenox) 40 mg SC BID [facility]; Protocol Isosorbide Mononitrate (Imdur Er) 30 mg PO DAILY [facility] Last Admin: 01/23/19 09:43 Dose: 30 mg Metoprolol Succinate (Toprol Xl) 25 mg PO DAILY [facility] Last Admin: 01/23/19 09:43 Dose: 25 mg Sitagliptin Phosphate (Januvia) 100 mg PO DAILY [facility] Last Admin: 01/23/19 09:43 Dose: 100 mg Physical Exam - Constitutional Appears: Well, Non-toxic, No Acute Distress - Head Exam Head Exam: ATRAUMATIC, NORMAL INSPECTION, NORMOCEPHALIC - Eye Exam Eye Exam: EOMI, PERRL - ENT Exam ENT Exam: Mucous Membranes Moist, Normal Exam - Neck Exam Neck exam: Positive for: Normal Inspection. Negative for: Tenderness - Respiratory Exam Respiratory Exam: Clear to Auscultation Bilateral, NORMAL BREATHING PATTERN. absent: Rales, Rhonchi, Wheezes - Cardiovascular Exam Cardiovascular Exam: REGULAR RHYTHM, RRR, +S1, +S2 - GI/Abdominal Exam GI & Abdominal Exam: Normal Bowel Sounds, Soft. absent: Tenderness - Extremities Exam Extremities exam: Positive for: full ROM, normal inspection. Negative for: pedal edema - Neurological Exam Neurological exam: Alert, CN II-XII Intact, Oriented x3 - Psychiatric Exam Psychiatric exam: Normal Affect, Normal Mood - Skin Skin Exam: Dry, Intact, Normal Color Results - Vital Signs Recent Vital Signs: Last Vital Signs Temp 98 F 01/23/19 12:02 Pulse 65 01/23/19 12:02 Resp 18 01/23/19 12:02 BP 113/71 01/23/19 12:02 Pulse Ox 95 01/23/19 12:02 - Labs Result Diagrams: 01/23/19 05:10 01/23/19 05:10 Labs: Laboratory Results - last 24 hr 01/22/19 01/22/19 01/23/19 18:00 18:00 01:50 WBC 5.9 RBC 4.57 Hgb 14.4 D Hct 43.7 MCV 95.8 H MCH 31.5 H MCHC 32.9 L RDW 13.1 Plt Count 224 MPV 7.0 L Neut % (Auto) 58.1 Lymph % (Auto) 28.3 Wayne % (Auto) 9.9 Eos % (Auto) 2.8 Baso % (Auto) 0.9 Neut # (Auto) 3.4 Lymph # (Auto) 1.7 Wayne # (Auto) 0.6 Eos # (Auto) 0.2 Baso # (Auto) 0.1 Sodium 141 Potassium 4.5 Chloride 105 Carbon Dioxide 28 Anion Gap 13 BUN 22 H Creatinine 1.0 Est GFR ( Amer) > 60 Est GFR (Non-Af Amer) > 60 POC Glucose (mg/dL) Random Glucose 84 Calcium 9.2 Total Bilirubin 0.4 AST 31 ALT 29 Alkaline Phosphatase 83 Troponin I < 0.0120 < 0.0120 Total Protein 6.3 Albumin 3.6 Globulin 2.7 Albumin/Globulin Ratio 1.4 01/23/19 01/23/19 01/23/19 05:10 05:10 06:23 WBC 5.9 RBC 4.51 Hgb 14.2 Hct 42.2 MCV 93.6 D MCH 31.5 H MCHC 33.6 RDW 12.5 Plt Count 230 MPV Neut % (Auto) Lymph % (Auto) Wayne % (Auto) Eos % (Auto) Baso % (Auto) Neut # (Auto) Lymph # (Auto) Wayne # (Auto) Eos # (Auto) Baso # (Auto) Sodium 139 Potassium 3.9 Chloride 104 Carbon Dioxide 30 Anion Gap 9 L BUN 23 H Creatinine 1.1 Est GFR ( Amer) > 60 Est GFR (Non-Af Amer) > 60 POC Glucose (mg/dL) 91 Random Glucose 82 Calcium 8.9 Total Bilirubin 0.4 AST 28 ALT 28 Alkaline Phosphatase 70 Troponin I < 0.0120 Total Protein 5.6 L Albumin 3.1 L Globulin 2.5 Albumin/Globulin Ratio 1.3 01/23/19 10:50 WBC RBC Hgb Hct MCV MCH MCHC RDW Plt Count MPV Neut % (Auto) Lymph % (Auto) Wayne % (Auto) Eos % (Auto) Baso % (Auto) Neut # (Auto) Lymph # (Auto) Wayne # (Auto) Eos # (Auto) Baso # (Auto) Sodium Potassium Chloride Carbon Dioxide Anion Gap BUN Creatinine Est GFR ( Amer) Est GFR (Non-Af Amer) POC Glucose (mg/dL) 237 H Random Glucose Calcium Total Bilirubin AST ALT Alkaline Phosphatase Troponin I Total Protein Albumin Globulin Albumin/Globulin Ratio Assessment & Plan - Assessment and Plan (Free Text) Assessment: Chest pain with ACS rule out Congestive Heart Failure Hypertension Plan: Chest pain with ACS rule out Congestive Heart Failure Hypertension Diabetes Mellitus type II Prior cardiac cath in 06/2018: two vessel moderate CAD involving the LAD and left RCA. normal LVEF EKG: NSR with rightward axis with HR: 62 CXR: no acute findings Tropx3: negative Will follow up echocardiogram Cardiac catheterization likely or Monday Medications: aspirin 81 mg daily lipitor 20 mg daily isosorbide mononitrate 30 mg daily metoprolol succinate 25 mg daily januvia - Date & Time Date: 01/23/19 Time: 14:04 <Fili Benavidez - Last Filed: 01/23/19 23:26> Meds - Medications Medications: Current Medications Acetaminophen (Tylenol 325mg Tab) 650 mg PO Q6 PRN PRN Reason: Pain, Mild (1-3) Last Admin: 01/23/19 21:04 Dose: 650 mg Aspirin (Ecotrin) 81 mg PO DAILY [facility] Last Admin: 01/23/19 09:42 Dose: 81 mg Atorvastatin Calcium (Lipitor) 20 mg PO DAILY [facility] Last Admin: 01/23/19 09:43 Dose: 20 mg Cholecalciferol (Vitamin D) 5,000 intlu PO DAILY [facility] Last Admin: 01/23/19 09:42 Dose: 5,000 intlu Enoxaparin Sodium (Lovenox) 40 mg SC DAILY [facility]; Protocol Last Admin: 01/23/19 17:59 Dose: 40 mg Isosorbide Mononitrate (Imdur Er) 30 mg PO DAILY [facility] Last Admin: 01/23/19 09:43 Dose: 30 mg Metoprolol Succinate (Toprol Xl) 25 mg PO DAILY [facility] Last Admin: 01/23/19 09:43 Dose: 25 mg Sitagliptin Phosphate (Januvia) 100 mg PO DAILY [facility] Last Admin: 01/23/19 09:43 Dose: 100 mg Results - Vital Signs Recent Vital Signs: Last Vital Signs Temp 97.0 F L 01/23/19 19:32 Pulse 62 01/23/19 20:57 Resp 18 01/23/19 19:32 BP 131/81 01/23/19 19:32 Pulse Ox 96 01/23/19 20:57 - Labs Result Diagrams: 01/23/19 05:10 01/23/19 05:10 Labs: Laboratory Results - last 24 hr 01/23/19 01/23/19 01/23/19 01:50 05:10 05:10 WBC 5.9 RBC 4.51 Hgb 14.2 Hct 42.2 MCV 93.6 D MCH 31.5 H MCHC 33.6 RDW 12.5 Plt Count 230 Sodium 139 Potassium 3.9 Chloride 104 Carbon Dioxide 30 Anion Gap 9 L BUN 23 H Creatinine 1.1 Est GFR ( Amer) > 60 Est GFR (Non-Af Amer) > 60 POC Glucose (mg/dL) Random Glucose 82 Hemoglobin A1c Calcium 8.9 Total Bilirubin 0.4 AST 28 ALT 28 Alkaline Phosphatase 70 Troponin I < 0.0120 < 0.0120 Total Protein 5.6 L Albumin 3.1 L Globulin 2.5 Albumin/Globulin Ratio 1.3 01/23/19 01/23/19 01/23/19 06:23 10:50 12:37 WBC RBC Hgb Hct MCV MCH MCHC RDW Plt Count Sodium Potassium Chloride Carbon Dioxide Anion Gap BUN Creatinine Est GFR ( Amer) Est GFR (Non-Af Amer) POC Glucose (mg/dL) 91 237 H Random Glucose Hemoglobin A1c 6.0 Calcium Total Bilirubin AST ALT Alkaline Phosphatase Troponin I Total Protein Albumin Globulin Albumin/Globulin Ratio 01/23/19 01/23/19 15:55 21:46 WBC RBC Hgb Hct MCV MCH MCHC RDW Plt Count Sodium Potassium Chloride Carbon Dioxide Anion Gap BUN Creatinine Est GFR ( Amer) Est GFR (Non-Af Amer) POC Glucose (mg/dL) 159 H 101 Random Glucose Hemoglobin A1c Calcium Total Bilirubin AST ALT Alkaline Phosphatase Troponin I Total Protein Albumin Globulin Albumin/Globulin Ratio Attending/Attestation - Attestation I have personally seen and examined this patient.: Yes I have fully participated in the care of the patient.: Yes I have reviewed all pertinent clinical information: Yes Notes (Text): 01/23/19 23:25 cath done by showed moderate 2 vessel CAD pt presenting with sharp stabbing chest pains ( atypical) plan for stress test to assess if need intervention
--- NOTE | 2019-01-23 13:51 | RAD ---
Date of service: 01/22/2019 HISTORY: cp COMPARISON: 07/14/2018 TECHNIQUE: Chest PA and lateral views FINDINGS: LUNGS: The lungs are mildly hyperinflated with increase in the A-P diameter and widening of the retrosternal space. Consistent with COPD. No infiltrate. PLEURA: No significant pleural effusion identified. No pneumothorax apparent. CARDIOVASCULAR: No aortic atherosclerotic calcification present. Normal cardiac size. No pulmonary vascular congestion. OSSEOUS STRUCTURES: No significant abnormalities. VISUALIZED UPPER ABDOMEN: Normal. OTHER FINDINGS: None. IMPRESSION: Findings consistent with COPD. No acute infiltrate.
[2019-01-23] MEDS: Enoxaparin 40 mg Syringe SC SCH (17:59)
--- NOTE | 2019-01-23 19:37 | CARD ---
APPROVED REPORT Date of service: 01/23/2019 EXAM: Two-dimensional and M-mode echocardiogram with Doppler and color Doppler. Other Information Quality : GoodRhythm : NSR INDICATION Chest Pain 2D DIMENSIONS IVSd0.99 (0.7-1.1cm)LVDd3.93 (3.9-5.9cm) LVOT Diameter1.64 (1.8-2.4cm)PWd0.81 (0.7-1.1cm) IVSs1.16 (0.8-1.2cm)LVDs2.56 (2.5-4.0cm) FS (%) 35.0 %PWs1.19 (0.8-1.2cm) M-Mode DIMENSIONS Left Atrium (MM)2.71 (2.5-4.0cm)IVSd1.18 (0.7-1.1cm) Aortic Root3.38 (2.2-3.7cm)LVDd4.76 (4.0-5.6cm) Aortic Cusp Exc.1.74 (1.5-2.0cm)PWd1.03 (0.7-1.1cm) IVSs1.47 cmFS (%) 43 % LVDs2.71 (2.0-3.8cm)PWs1.38 cm Aortic Valve AoV Peak Bebqhrll146.6cm/sAoV VTI29.0cmAO Peak GR.6mmHg LVOT Peak Wdamekuj78.2cm/sLVOT VTI17.13cmAO Mean GR.2mmHg OLYA (VMAX)0.33rg2KON (VTI)0.76cm2 Mitral Valve MV E Ibvpddko60.4cm/sMV DECEL [id number] A Ngyljdfi74.2cm/s MV JZC82ffM/A ratio0.6MVA (PHT)2.56cm2 TDI E/Lateral E'0.0E/Medial E'0.0 Tricuspid Valve TR Peak Qrhgwmzv194sp/sRAP SOZNIUNX77ptAmUB Peak Gr.23mmHg GAGZ88atCa LEFT VENTRICLE The left ventricle is normal size. There is normal left ventricular wall thickness. The left ventricular systolic function is normal. The estimated ejection fraction is 55-60% No regional wall motion abnormalities noted.. Transmitral Doppler flow pattern is Grade I-abnormal relaxation pattern. No left ventricle thrombus noted on this study. There is no ventricular septal defect visualized. There is no left ventricular aneurysm. There is no mass noted in the left ventricle. RIGHT VENTRICLE The right ventricle is normal size. There is normal right ventricular wall thickness. The right ventricular systolic function is normal. ATRIA The left atrium size is normal. The right atrium size is normal. The interatrial septum is intact with no evidence for an atrial septal defect. AORTIC VALVE The aortic valve is normal in structure. No aortic regurgitation is present. There is no aortic valvular stenosis. There is no aortic valvular vegetation. MITRAL VALVE The mitral valve is normal in structure. There is no evidence of mitral valve prolapse. There is no mitral valve stenosis. There is no mitral valve regurgitation noted. TRICUSPID VALVE The tricuspid valve is normal in structure. There is mild tricuspid valve regurgitation noted. RVSP is calculated at 27 mm Hg. There is no tricuspid valve prolapse or vegetation. There is no tricuspid valve stenosis. PULMONIC VALVE The pulmonary valve is normal in structure. There is no pulmonic valvular regurgitation. There is no pulmonic valvular stenosis. GREAT VESSELS The aortic root is normal in size. The ascending aorta is normal in size. The pulmonary artery is normal. The IVC is normal in size and collapses >50% with inspiration. PERICARDIAL EFFUSION There is no pericardial effusion. There is no pleural effusion. <Conclusion> The estimated ejection fraction is 55-60% Transmitral Doppler flow pattern is Grade I-abnormal relaxation pattern. The left atrium size is normal. There is mild tricuspid valve regurgitation noted. RVSP is calculated at 27 mm Hg.
[2019-01-24 08:05] VITALS: O2SAT 98
--- NOTE | 2019-01-24 08:46 | CP.PCM.PN ---
Subjective - Date & Time of Evaluation Date of Evaluation: 01/24/19 Time of Evaluation: 08:43 - Subjective Subjective: Minh Mcneal, PGY-1, Cardiology Progress Note for Dr. Benavidez Patient seen and evaluated at bedside. Patient had no acute overnight events. Patient reports subjective fever, chills, mild chest pain improved from yesterday and multiple episode of sneezes. Objective - Vital Signs/Intake and Output Vital Signs (last 24 hours): Temp Pulse Resp BP Pulse Ox 97.5 F L 60 18 134/80 98 01/24/19 08:05 01/24/19 08:05 01/24/19 08:05 01/24/19 08:05 01/24/19 08:05 - Medications Medications: Current Medications Acetaminophen (Tylenol 325mg Tab) 650 mg PO Q6 PRN PRN Reason: Pain, Mild (1-3) Last Admin: 01/23/19 21:04 Dose: 650 mg Aspirin (Ecotrin) 81 mg PO DAILY [facility] Last Admin: 01/23/19 09:42 Dose: 81 mg Atorvastatin Calcium (Lipitor) 20 mg PO DAILY [facility] Last Admin: 01/23/19 09:43 Dose: 20 mg Cholecalciferol (Vitamin D) 5,000 intlu PO DAILY [facility] Last Admin: 01/23/19 09:42 Dose: 5,000 intlu Enoxaparin Sodium (Lovenox) 40 mg SC DAILY [facility]; Protocol Last Admin: 01/23/19 17:59 Dose: 40 mg Isosorbide Mononitrate (Imdur Er) 30 mg PO DAILY [facility] Last Admin: 01/23/19 09:43 Dose: 30 mg Metoprolol Succinate (Toprol Xl) 25 mg PO DAILY [facility] Last Admin: 01/23/19 09:43 Dose: 25 mg Sitagliptin Phosphate (Januvia) 100 mg PO DAILY [facility] Last Admin: 01/23/19 09:43 Dose: 100 mg - Labs Labs: 01/23/19 05:10 01/23/19 05:10 - Constitutional Appears: Well, Non-toxic, No Acute Distress - Head Exam Head Exam: ATRAUMATIC, NORMAL INSPECTION, NORMOCEPHALIC - Eye Exam Eye Exam: EOMI, PERRL - ENT Exam ENT Exam: Mucous Membranes Moist, Normal Exam - Neck Exam Neck exam: Positive for: Normal Inspection. Negative for: Tenderness - Respiratory Exam Respiratory Exam: Clear to Auscultation Bilateral, NORMAL BREATHING PATTERN. absent: Rales, Rhonchi, Wheezes - Cardiovascular Exam Cardiovascular Exam: REGULAR RHYTHM, RRR, +S1, +S2 - GI/Abdominal Exam GI & Abdominal Exam: Normal Bowel Sounds, Soft. absent: Tenderness - Extremities Exam Extremities exam: Positive for: full ROM, normal inspection. Negative for: pedal edema - Neurological Exam Neurological exam: Alert, CN II-XII Intact, Oriented x3 - Psychiatric Exam Psychiatric exam: Normal Affect, Normal Mood - Skin Skin Exam: Dry, Intact, Normal Color Assessment and Plan (1) Hypertension Assessment & Plan: Continue with metoprolol. Blood pressure has been well controlled. Status: Acute (2) CAD (coronary artery disease) Assessment & Plan: EKG: NSR with rightward axis with HR: 62 Tropx3: negative Patient has been presenting with sharp stabbing chest pains. Cath done in 06/2018 showed moderate 2 vessel CAD. Nuclear stress test was unremarkable. As a result, patient can be discharged from a cardiac standpoint. Continue with aspirin, lipitor, imdur, and toprol Status: Acute (3) Congestive heart failure Assessment & Plan: Echocardiogram on 01/23: LVEF of 55-60%, grade I pseudonormal relaxation Continue with beta josh Status: Acute
[2019-01-24] MEDS: Metoprolol Succinate 25 mg XL Tab PO SCH (09:12)
[2019-01-24] MEDS: Enoxaparin 40 mg Syringe SC SCH (09:13)
[2019-01-24] MEDS: Cholecalciferol 1,000 INTLU TAB PO SCH (09:13)
--- NOTE | 2019-01-24 10:35 | CP.PCM.PN ---
<Ryan Ocasio - Last Filed: 01/24/19 10:29> Subjective - Date & Time of Evaluation Date of Evaluation: 01/24/19 Time of Evaluation: 08:00 - Subjective Subjective: Pt seen and evaluated at the bedside this am with Dr. Guerrero. Pt states he has mild chest pain occasionally but at the moment denies any. Reports cough is improving. Plan for Stress Test today discussed, pt agrees. Objective - Vital Signs/Intake and Output Vital Signs (last 24 hours): Temp Pulse Resp BP Pulse Ox 97.5 F L 60 18 134/80 98 01/24/19 08:05 01/24/19 08:05 01/24/19 08:05 01/24/19 08:05 01/24/19 08:05 - Medications Medications: Current Medications Acetaminophen (Tylenol 325mg Tab) 650 mg PO Q6 PRN PRN Reason: Pain, Mild (1-3) Last Admin: 01/23/19 21:04 Dose: 650 mg Aspirin (Ecotrin) 81 mg PO DAILY [facility] Last Admin: 01/24/19 09:12 Dose: 81 mg Atorvastatin Calcium (Lipitor) 20 mg PO DAILY [facility] Last Admin: 01/24/19 09:12 Dose: 20 mg Cholecalciferol (Vitamin D) 5,000 intlu PO DAILY [facility] Last Admin: 01/24/19 09:13 Dose: 5,000 intlu Enoxaparin Sodium (Lovenox) 40 mg SC DAILY [facility]; Protocol Last Admin: 01/24/19 09:13 Dose: 40 mg Isosorbide Mononitrate (Imdur Er) 30 mg PO DAILY [facility] Last Admin: 01/24/19 09:13 Dose: 30 mg Metoprolol Succinate (Toprol Xl) 25 mg PO DAILY [facility] Last Admin: 01/24/19 09:12 Dose: 25 mg Sitagliptin Phosphate (Januvia) 100 mg PO DAILY [facility] Last Admin: 01/24/19 09:12 Dose: 100 mg - Labs Labs: 01/23/19 05:10 01/23/19 05:10 - Constitutional Appears: No Acute Distress - Head Exam Head Exam: NORMAL INSPECTION - Eye Exam Eye Exam: Normal appearance - ENT Exam ENT Exam: Mucous Membranes Moist - Respiratory Exam Respiratory Exam: Clear to Ausculation Bilateral. absent: Rales, Wheezes - Cardiovascular Exam Cardiovascular Exam: REGULAR RHYTHM, +S1, +S2. absent: Murmur - GI/Abdominal Exam GI & Abdominal Exam: Soft, Normal Bowel Sounds. absent: Tenderness - Extremities Exam Extremities Exam: Normal Inspection - Neurological Exam Neurological Exam: Alert, Awake - Psychiatric Exam Psychiatric exam: Normal Affect Assessment and Plan - Assessment and Plan (Free Text) Assessment: 72 year old male with medical history of diabetes, CHF, HTN who presents to the emergency department with a complaint of exertional chest pain associated with palpations, and headache for the past 2 weeks. Of note, pt had Cath procedure at [facility] on Jun and was noted to have moderate 2 vessel CAD (RCA and LAD) via Cath by Dr. Benavidez. Treated with medical optimization at that time. #Chest pain #Cough - EKG no acute ischemic changes seen. Cardiac enzymes negative x3. Echo completed, EF normal, no regional wall motion abnormalities. -Cardiology recommendations appreciated. Plan for Stress Test today - Headache mild w/o red flag signs; controlled with Tylenol prn - C/W home medications as ordered - Cough, likely viral, no systemic signs, Cxray normal, supportive care <Shoaib Guerrero K - Last Filed: 01/25/19 23:30> Objective - Vital Signs/Intake and Output Vital Signs (last 24 hours): Temp Pulse Resp BP Pulse Ox 97.4 F L 64 16 133/82 98 01/24/19 20:03 01/24/19 20:03 01/24/19 20:03 01/24/19 20:03 01/24/19 20:03 - Labs Labs: 01/23/19 05:10 01/23/19 05:10 Assessment and Plan - Assessment and Plan (Free Text) Assessment: Patient was personally seen and examined by me in rounds with residents. Available labs and diagnostic data reviewed. Case, Patient's condition and management plan discussed with residents in rounds. Agree with resident's progress note. Plan: As ordered.
[2019-01-24 16:22] VITALS: RESP 16
[2019-01-24 20:04] VITALS: BP 133/82; PULSE 64; TEMP 97.4
--- NOTE | 2019-01-25 09:54 | CARD ---
APPROVED REPORT Date of service: 01/23/2019 Protocol: TAIWO Test Type: Stress Nuclear Medications: ASA 81mg, Atorvastatin 20mg, Cholecalciferol 5000 u, Lovenox 40mg, Imdur 30mg, Toprolol XL 25mg, Metoprolol 25mg, Januvia 100mg, Sitagliptin 100mg, Medical History: Diabetes, CHF, Hypertension Ex Smoker, Abdominal Surgery, Target HR: 148 bpm Resting ECG: normal Resting Heart Rate: 54 bpm Resting Blood Pressure: 145/80mmHg submaximum (85%): 126 bpm TEST SUMMARY [id number]. [id number]. [id number]. [id number]. EXERCISESTAGE [id number]/80.0. EXERCISESTAGE [id number]/70.0. EXERCISESTAGE 303:[id number]/70.0. [id number]. POST EXERCISE Reason for Termination: Fatigue Target HR: No Max HR: 108 bpm 72% of Maximum Predicted HR: 148 bpm Exercise duration: 09:00 min:sec, 3 Stage Exercise capacity: 10.1METs Max Blood Pressure: 178/70mmHg Blood Pressure response to exercise: normal resting BP - appropriate response Heart Rate response to exercise: appropriate Chest Pain: No, none Angina index: 0 Arrhythmia: Yes, atrial premature beats ST Change: No, none Deviation: 0 mm Clinical Indications Under Appropriate Use Criteria Patient was schedule for stress test due to hypertension, chest pain, dibetes mellitus Stress EKG Interpretation No st or to waves changes were seen during exercises. No chest pain was reported. Blood pressure response was normal. RESTING ECG Rhythm: Sinus Conduction: Normal Arrhythmias: None Repolarization: Normal STRESS ECG Rhythm: Sinus Conduction: Normal Arrhythmias: None Repolarization: Normal ST-Segment changes: none EXAM: Myocardial Perfusion REST/STRESS Image QualityGood Imaging Protocol The imaging protocol used to acquire images was Rest Tc-99m/stress Tc-99m 1 day Rest Spect myocardial perfusion imaging was performed in supine position 122 minutes following the injection of 10 mCi of Tc-99 Myoview. Time of rest injection: 9:00 Time of rest imagin:02 At peak stress, the patient was injected intravenously with 30mCi of Tc-99 tetrofosmin after an infusion time of minutes and seconds. Time of stress injection: 12:10 Time of stress imagin:57 Gated Stress Spect was performed 167 minutes after intravenous Tc-99 Myoview injection. The images were gated to evaluate regional wall motion and calculate ventricular ejection fraction. NUCLEAR IMAGE INTERPRETATION Study quality was excellent. Left Ventricular size was Normal at Rest and Stress. Lung uptake was Normal. Left Ventricular ejection fraction is 77%. The rest and stress images show normal perfusion, normal contraction and thickening. LV Perfusion Normal perfusion scan LV Perfusion 1 The rest and stress images show normal perfusion. Wall Motion Normal wall motion with normal LVEF 77% CONCLUSION 1. Normal nuclear stress test Recommendation Medical therapy
== END 2019-01-24 20:00 | disposition home or self-care (01) ==
LOC: H.ER 17:49 → H.ERHOLD 20:55 → H.TEL 22:55
PROVIDERS: ADMIT Internal Medicine; ATTEND Internal Medicine
DX: R07.89 Other chest pain (principal); I11.0 Hypertensive heart disease with heart failure; I50.9 Heart failure, unspecified; E11.9 Type 2 diabetes mellitus without complications; I25.10 Atherosclerotic heart disease of native coronary artery without angina pectoris; Z23 Encounter for immunization; Z79.82 Long term (current) use of aspirin; Z87.891 Personal history of nicotine dependence
CPT/HCPCS: 36415; 71046; 78452; 80053; 82948; 83036; 84484; 85025; 85027; 93005; 93017; 93306; 99285; A9502; G0378; J1650

== ENCOUNTER 2019-03-12 20:34 | Inpatient (IN) | payer MEDICARE, MEDICAID ==
[2019-03-12] MEDS ORDERED: Sodium Chloride 0.9% 1,000 ML IV STA (21:16)
[2019-03-12] MEDS ORDERED: Iohexol 240 (50 ml) PO ONE (21:33)
[2019-03-12] MEDS ORDERED: Iohexol 240 (50 ml) ONE (21:38)
[2019-03-12 21:43] LABS: BASO % 0.5 % (0.0-2.0); EOS # 0.2 K/uL (0.0-0.7); EOS % 2.1 % (0.0-4.0); HEMOGLOBIN 15.2 g/dL (12.0-18.0); LYMPH # 0.9 K/uL (1.0-4.3); LYMPH % 10.7 % (20.0-40.0); MEAN CELL VOLUME 95.2 fl (80.0-94.0); MEAN CORPUSCULAR HEMOGLOBIN 31.6 pg (27.0-31.0); MEAN CORPUSCULAR HGB CONC 33.2 g/dL (33.0-37.0); MEAN PLATELET VOLUME 6.8 fl (7.2-11.7); MONO # 0.7 K/uL (0.0-0.8); MONO % 7.8 % (0.0-10.0); NEUT # 6.6 K/uL (1.8-7.0); NEUT % 78.9 % (50.0-75.0); RBC 4.82 Mil/uL (4.40-5.90); RED CELL DISTRIBUTION WIDTH 12.7 % (11.5-14.5); WHITE BLOOD COUNT 8.4 K/uL (4.8-10.8)
[2019-03-12 21:46] LABS: ALB/GLOB RATIO 1.5 (1.0-2.1); ALBUMIN 4.3 g/dL (3.5-5.0); ALT/SGPT 43 U/L (21-72); AST/SGOT 41 U/L (17-59); BLOOD UREA NITROGEN 14 mg/dl (9-20); CALCIUM 9.2 mg/dL (8.4-10.2); GFR NON-AFRICAN AMERICAN > 60; LIPASE 133 U/L (23-300)
--- NOTE | 2019-03-12 22:14 | ED PDOC ---
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 Patient reports nausea but no vomiting or diarrhea. Pain consists of continued nausea but he states relief offered by Maalox. He has had abdominal surgery in the past. PMD: Alexa Garduno Past Medical History Reviewed: Historical Data, Nursing Documentation, Vital Signs Vital Signs: Last Vital Signs Temp 97.4 F L 03/12/19 20:43 Pulse 60 03/12/19 20:43 Resp 16 03/12/19 20:43 BP 130/86 03/12/19 20:43 Pulse Ox 97 03/12/19 20:43 Primary Care Provider: Alexa Garduno - Medical History PMH: CAD, CHF, Diabetes, HTN Denies: Chronic Kidney Disease - Surgical History Surgical History: No Surg Hx - Family History Family History: States: Diabetes - Home Medications Home Medications: Ambulatory Orders Medication Instructions Recorded Aspirin [Adult Low Dose Aspirin EC] 81 mg PO DAILY 07/14/18 SITagliptin [Januvia] 50 mg PO DAILY 07/14/18 Atorvastatin [Lipitor] 20 mg PO DAILY #30 tab 07/19/18 Isosorbide Mononitrate ER [Imdur 30 mg PO DAILY #30 tab 07/19/18 ER] Metoprolol Succinate XL [Toprol XL] 25 mg PO BID 03/13/19 Montelukast Sodium [Singulair] 10 mg PO HS 03/13/19 - Allergies Allergies/Adverse Reactions: Allergies Allergy/AdvReac Type Severity Reaction Status Date / Time No Known Allergies Allergy Verified 01/22/19 21:18 Review of Systems ROS Statement: Except As Marked, All Systems Reviewed And Found Negative Gastrointestinal: Positive for: Nausea, Abdominal Pain (sudden onset after eating). Negative for: Vomiting, Diarrhea Physical Exam - Reviewed Nursing Documentation Reviewed: Yes Vital Signs Reviewed: Yes - Physical Exam Appears: Positive for: Well, Non-toxic, No Acute Distress Head Exam: Positive for: ATRAUMATIC, NORMAL INSPECTION, NORMOCEPHALIC Skin: Positive for: Normal Color, Warm, Dry Eye Exam: Positive for: EOMI, Normal appearance, PERRL ENT: Positive for: Normal ENT Inspection Neck: Positive for: Normal, Painless ROM, Supple Cardiovascular/Chest: Positive for: Regular Rate, Rhythm. Negative for: Murmur Respiratory: Positive for: Normal Breath Sounds. Negative for: Respiratory Distress Gastrointestinal/Abdominal: Positive for: Tenderness (diffusely tender abdomen), Distended Back: Positive for: Normal Inspection. Negative for: L CVA Tenderness, R CVA Tenderness, Vertebral Tenderness Extremity: Positive for: Normal ROM. Negative for: Pedal Edema, Deformity Neurological/Psych: Positive for: Awake, Alert, Oriented (x3). Negative for: Motor/Sensory Deficits - Laboratory Results Result Diagrams: 03/14/19 08:40 03/14/19 08:40 Lab Results: Troponin I < 0.0120 ng/mL (0.00-0.120) 03/12/19 21:33 Total Bilirubin 0.5 mg/dl (0.2-1.3) 03/12/19 21:33 AST 41 U/L (17-59) 03/12/19 21:33 ALT 43 U/L (21-72) 03/12/19 21:33 Alkaline Phosphatase 124 U/L (38-126) 03/12/19 21:33 Total Protein 7.1 G/DL (6.3-8.2) 03/12/19 21:33 Albumin 4.3 g/dL (3.5-5.0) 03/12/19 21:33 Globulin 2.8 gm/dL (2.2-3.9) 03/12/19 21:33 Albumin/Globulin Ratio 1.5 (1.0-2.1) 03/12/19 21:33 Lipase 133 U/L (23-300) 03/12/19 21:33 - ECG O2 Sat by Pulse Oximetry: 97 (RA) Pulse Ox Interpretation: Normal Medical Decision Making Medical Decision Making: Time: 2209 Initial Impression: Initial Plan: --Workup for new onset abdominal pain distension --Labs --Omnipaque --IV Fluids --CT Abdomen/Pelvis --Reassessment 2299 Patient signed out by me to Royer Gamboa MD pending CT abdomen and pelvis and reevaluation. Scribe Attestation: Documented by Nestor Carrillo acting as a scribe for Marlin Mike MD. Provider Scribe Attestation: All medical record entries made by the Scribe were at my direction and personally dictated by me. I have reviewed the chart and agree that the record accurately reflects my personal performance of the history, physical exam, medical decision making, and the department course for this patient. I have also personally directed, reviewed, and agree with the discharge instructions and disposition. Scribe Attestation: Documented by Marlin Hillman, acting as a scribe for Marlin Mike MD. Provider Scribe Attestation: All medical record entries made by the Scribe were at my direction and personally dictated by me. I have reviewed the chart and agree that the record accurately reflects my personal performance of the history, physical exam, medical decision making, and the department course for this patient. I have also personally directed, reviewed, and agree with the discharge instructions and disposition. Disposition - Clinical Impression Clinical Impression: Partial small bowel obstruction - Disposition Disposition: Transfer of Care Disposition Time: 23:00 (signed out to Dr. Gamboa pending CT scan.) Condition: FAIR
[2019-03-12] MEDS ORDERED: Iohexol 300 100 ML IJ ONE (22:46)
[2019-03-12] MEDS ORDERED: Sodium Chloride 0.9% 50 ML IV ONE (22:47)
--- NOTE | 2019-03-12 23:10 | ED PDOC ---
- Laboratory Results Result Diagrams: 03/12/19 21:33 03/12/19 21:33 Lab Results: Troponin I < 0.0120 ng/mL (0.00-0.120) 03/12/19 21:33 Total Bilirubin 0.5 mg/dl (0.2-1.3) 03/12/19 21:33 AST 41 U/L (17-59) 03/12/19 21:33 ALT 43 U/L (21-72) 03/12/19 21: Alkaline Phosphatase 124 U/L (38-126) 03/12/19 21:33 Total Protein 7.1 G/DL (6.3-8.2) 03/12/19 21: Albumin 4.3 g/dL (3.5-5.0) 03/12/19 21: Globulin 2.8 gm/dL (2.2-3.9) 03/12/19 21: Albumin/Globulin Ratio 1.5 (1.0-2.1) 03/12/19 21: Lipase 133 U/L (23-300) 03/12/19 21:33 - ECG O2 Sat by Pulse Oximetry: 97 (RA) Medical Decision Making Medical Decision Makin:00 Patient signed out to me by Marlin Mike MD pending CT abdomen and pelvis and reevaluation. 00:18 CTA of chest, abdomen, and pelvis read and reviewed by radiologist FINDINGS: Mild centrilobular pulmonary emphysema, unchanged. Minimal bilateral basilar atelectatic pulmonary changes, unchanged. Normal enhancement of the main pulmonary artery and right and left pulmonary arteries. Normal enhancement of the bilateral peripheral pulmonary arteries. There is no demonstrated pulmonary embolism. Normal thoracic aorta and visualized great vessels. There is no demonstrated aortic dissection. Normal heart and pericardium. Normal mediastinum. Normal hilar regions. Normal visualized trachea and thickened bronchi. Normal pleura. Normal chest wall structures. Mild spondylosis. Normal liver. Normal gallbladder and extrahepatic biliary system. Normal spleen. Normal pancreas. Normal bilateral adrenal glands. Scattered bilateral simple renal cysts with the largest measuring 3.2 cm. Normal size of the right kidney. There is no right renal mass. There are no right renal calculi. There is no right hydronephrosis. Normal visualized right ureter. Normal size of the left kidney. There is no left renal mass. There are no left renal calculi. There is no left hydronephrosis. Normal visualized left ureter. Small sliding hiatal hernia. Comparison distended stomach. Contrast has distended proximal small intestine. Moderate amount of fecal residue in the colon. There is no demonstrated peritoneal fluid. Calcified atheromatous plaques of the abdominal aorta. Normal inferior vena cava. Normal retroperitoneum. Normal urinary bladder. There is no pelvic mass lesion or lymphadenopathy. There is no pelvic fluid. Normal abdominal wall. Normal osseous structures. IMPRESSION: No demonstrated pulmonary embolism or arterial dissection. Atherosclerosis. Emphysema. Bilateral basilar atelectatic pulmonary changes. Moderate uncomplicated partial small bowel obstruction. Transition zone in the right lower quadrant. No evidence of perforation or pneumatosis intestinalis. Constipation. 0020 Patient vomited in the E.D. Spoke to patient with Swedish interpretor Keith [id number] States that 20 years ago he had a surgery because of a "medication side effect", however abdominal exam shows evidence of a large midline open laparatomy Explained results to patient Case was dicussed with Dr. Teja Rodriguez who evaluated patient at bedside, NGT placed with return of gastric contents. Case discussed with Dr. Guerrero who accepts admission with Dr. Younger on consult Will admit to Med/Surg Scribe Attestation: Documented by Marlin Hillman, acting as a scribe for Royer Gamboa MD. Provider Scribe Attestation: All medical record entries made by the Scribe were at my direction and personally dictated by me. I have reviewed the chart and agree that the record accurately reflects my personal performance of the history, physical exam, m edical decision making, and the department course for this patient. I have also personally directed, reviewed, and agree with the discharge instructions and disposition. Disposition - Clinical Impression Clinical Impression: Partial small bowel obstruction - POA Present On Arrival: None - Disposition Disposition: Admitted as In-Patient Disposition Time: 00:20 Condition: FAIR
[2019-03-12] MEDS ORDERED: Sterile Water 10 ML IV ONE (23:15)
[2019-03-13] MEDS ORDERED: Sodium Chloride 0.9% 1,000 ML IV STA (00:51)
--- NOTE | 2019-03-13 02:12 | CP.PCM.CON ---
History of Present Illness - History of Present Illness History of Present Illness: General Surgery Consult for Dr. Perez Reason for consult: pSBO 73 M with PMH that includes CAD s/p cardiac cath, HTN, DM, CHF, and abdominal surgery presents to [facility] for complaint of abdominal pain and nausea/vomiting. Patient was seen evaluated in the ED. Patient states that he has been having intermittent pain for 2 weeks. Yesterday, pain had gotten worse. He report crampy diffuse pain. Patient also reports that he has had multiple episodes of nausea/vomiting over the last 2 days. Patient denies diarrhea but admits flatus and having a normal BM within last 2 days. Patient reports abdominal surgery many years ago but does not know what it was for. Nothing alleviates or aggravates his symptoms. Denies fever/chills, cp,SOB, palpitations, urinary symptoms or incontinence. PMH: as above PSH: abdominal surgery ALL: NKDA Review of Systems - Review of Systems All systems: reviewed and no additional remarkable complaints except (as per HPI) Past Patient History - Infectious Disease Hx of Infectious Diseases: None - Past Medical History & Family History Past Medical History?: Yes - Past Social History Smoking Status: Former Smoker - CARDIAC Hx Congestive Heart Failure: Yes Hx Hypertension: Yes - PULMONARY Hx Respiratory Disorders: No - NEUROLOGICAL Hx Neurological Disorder: No - HEENT Hx HEENT Problems: No - RENAL Hx Chronic Kidney Disease: No - ENDOCRINE/METABOLIC Hx Endocrine Disorders: Yes - HEMATOLOGICAL/ONCOLOGICAL Hx Blood Disorders: No - INTEGUMENTARY Hx Dermatological Problems: No - MUSCULOSKELETAL/RHEUMATOLOGICAL Hx Musculoskeletal Disorders: No Hx Falls: No - GASTROINTESTINAL Hx Gastrointestinal Disorders: No - GENITOURINARY/GYNECOLOGICAL Hx Genitourinary Disorders: No - PSYCHIATRIC Hx Psychophysiologic Disorder: No Hx Substance Use: No - SURGICAL HISTORY Hx Surgeries: Yes Other/Comment: abdominal surgery - ANESTHESIA Hx Anesthesia: Yes Hx Anesthesia Reactions: No Meds Allergies/Adverse Reactions: Allergies Allergy/AdvReac Type Severity Reaction Status Date / Time No Known Allergies Allergy Verified 01/22/19 21:18 - Medications Medications: Current Medications Sodium Chloride (Sodium Chloride 0.9%) 1,000 mls @ 150 mls/hr IV .[id number] STA Stop: 03/13/19 07:30 Physical Exam - Constitutional Appears: No Acute Distress, Unkempt - Head Exam Head Exam: ATRAUMATIC, NORMOCEPHALIC - Eye Exam Eye Exam: EOMI, Normal appearance Pupil Exam: PERRL - ENT Exam ENT Exam: Mucous Membranes Moist - Respiratory Exam Respiratory Exam: NORMAL BREATHING PATTERN - Cardiovascular Exam Cardiovascular Exam: REGULAR RHYTHM - GI/Abdominal Exam GI & Abdominal Exam: Distended (mild), Hypoactive Bowel Sounds, Soft, Tenderness (diffuse). absent: Firm, Guarding, Mass, Rebound, Rigid - Extremities Exam Extremities exam: Positive for: normal capillary refill - Back Exam Back exam: absent: CVA tenderness (L), CVA tenderness (R) - Neurological Exam Neurological exam: Alert, CN II-XII Intact, Oriented x3 - Psychiatric Exam Psychiatric exam: Normal Affect, Normal Mood - Skin Skin Exam: Dry, Intact, Warm Results - Vital Signs Recent Vital Signs: Last Vital Signs Temp 97.4 F L 03/12/19 20:43 Pulse 60 03/12/19 20:43 Resp 16 03/12/19 20:43 BP 130/86 03/12/19 20:43 Pulse Ox 97 03/13/19 00:30 - Labs Result Diagrams: 03/12/19 21:33 03/12/19 21:33 Labs: Laboratory Results - last 24 hr 03/12/19 03/12/19 21:33 21:33 WBC 8.4 RBC 4.82 Hgb 15.2 Hct 45.9 MCV 95.2 H MCH 31.6 H MCHC 33.2 RDW 12.7 Plt Count 254 MPV 6.8 L Neut % (Auto) 78.9 H Lymph % (Auto) 10.7 L [place] % (Auto) 7.8 Eos % (Auto) 2.1 Baso % (Auto) 0.5 Neut # (Auto) 6.6 Lymph # (Auto) 0.9 L [place] # (Auto) 0.7 Eos # (Auto) 0.2 Baso # (Auto) 0.0 Sodium 137 Potassium 4.7 Chloride 97 L Carbon Dioxide 31 H Anion Gap 14 BUN 14 Creatinine 0.8 Est GFR ( Amer) > 60 Est GFR (Non-Af Amer) > 60 Random Glucose 102 Calcium 9.2 Total Bilirubin 0.5 AST 41 ALT 43 Alkaline Phosphatase 124 Troponin I < 0.0120 Total Protein 7.1 Albumin 4.3 Globulin 2.8 Albumin/Globulin Ratio 1.5 Lipase 133 Assessment & Plan - Assessment and Plan (Free Text) Assessment: 73M who presents with pSBO Plan: -NPO -NGT to low intermittent suction -IVF -IV abx -Pain control -Anti-emetics PRN -Monitor bowel function -Serial abd exams -I's&O's -Further recs as per Dr. Chris Rodriguez PGY2 - Date & Time Date: 03/13/19 Time: 02:45
[2019-03-13 02:24] LABS: VENOUS BLOOD GAS BASE EXCESS 4.6 mmol/L (0.0-2.0); VENOUS BLOOD GAS PCO2 56 mmHg (40-60); VENOUS BLOOD GAS PO2 24 mm/Hg (30-55); VENOUS BLOOD PH 7.36 (7.32-7.43)
[2019-03-13] MEDS ORDERED: HYDROmorphone 0.5 mg/0.5 ml ISec IVP PRN (02:41)
[2019-03-13] MEDS ORDERED: Albuterol-Ipratrop 3 mg / 0.5 (3 ml) UD INH PRN (02:43)
[2019-03-13] MEDS ORDERED: Lactated Ringer's 1,000 ML IV SCH (02:45)
[2019-03-13 03:49] VITALS: BMI 20.5
--- NOTE | 2019-03-13 06:39 | CP.PCM.HP ---
<Aysha Sosa - Last Filed: 03/13/19 09:05> History of Present Illness - History of Present Illness History of Present Illness: This is 73 y/o M with PMH of HTN, DM-II, CAD s/p PCI 2018 and abdominal surgery (unknown) admitted to [facility] for partial SBO. Patient presented to ER c/o worsening generalized abdominal pain for 1-2 weeks. Patient reports genralized pain, 6/10, comes and goes, diffuse/sharp in nature, nothing alleviates or aggravates his symptoms, associated with nausea, denies any vomiting, fever, diarrhea, constipation or dysuria. Patient reports few days hx of URI. PMH/PSH: HTN, DM-II, CAD s/p PCI 2018 and abdominal surgery (unknown) Allg: NKA Meds: As per med rec FH: + heart disease SH: Denies any alcohol, smoking or drug use PMD: Dr. Garduno Present on Admission - Present on Admission Any Indicators Present on Admission: No Review of Systems - Constitutional Constitutional: absent: Fatigue, Lethargy, Night Sweats, Weakness - EENT Eyes: absent: Blurred Vision Ears: Dizziness Nose/Mouth/Throat: Nasal Congestion, Nasal Discharge, Post Nasal Drip - Cardiovascular Cardiovascular: absent: Chest Pain - Respiratory Respiratory: absent: Cough, Dyspnea, Hemoptysis, Dyspnea on Exertion - Gastrointestinal Gastrointestinal: Abdominal Pain - Genitourinary Genitourinary: absent: Dysuria - Integumentary Integumentary: absent: Rash - Neurological Neurological: Headaches. absent: Sensory Deficit, Syncope, Tingling, Tremor, Vertigo, Weakness - Psychiatric Psychiatric: absent: Anxiety, Depression - Endocrine Endocrine: absent: Change in Body Appearance - Hematologic/Lymphatic Hematologic: absent: Easy Bleeding Past Patient History - Infectious Disease Hx of Infectious Diseases: None - Past Medical History & Family History Past Medical History?: Yes - Past Social History Smoking Status: Former Smoker - CARDIAC Hx Congestive Heart Failure: Yes Hx Hypertension: Yes - PULMONARY Hx Respiratory Disorders: No - NEUROLOGICAL Hx Neurological Disorder: No - HEENT Hx HEENT Problems: No - RENAL Hx Chronic Kidney Disease: No - ENDOCRINE/METABOLIC Hx Endocrine Disorders: Yes - HEMATOLOGICAL/ONCOLOGICAL Hx Blood Disorders: No - INTEGUMENTARY Hx Dermatological Problems: No - MUSCULOSKELETAL/RHEUMATOLOGICAL Hx Musculoskeletal Disorders: No Hx Falls: No - GASTROINTESTINAL Hx Gastrointestinal Disorders: No - GENITOURINARY/GYNECOLOGICAL Hx Genitourinary Disorders: No - PSYCHIATRIC Hx Psychophysiologic Disorder: No Hx Substance Use: No - SURGICAL HISTORY Hx Surgeries: Yes Other/Comment: abdominal surgery - ANESTHESIA Hx Anesthesia: Yes Hx Anesthesia Reactions: No Meds Allergies/Adverse Reactions: Allergies Allergy/AdvReac Type Severity Reaction Status Date / Time No Known Allergies Allergy Verified 01/22/19 21:18 Physical Exam - Constitutional Appears: No Acute Distress - Head Exam Head Exam: ATRAUMATIC, NORMAL INSPECTION, NORMOCEPHALIC - Eye Exam Eye Exam: Normal appearance Pupil Exam: NORMAL ACCOMODATION - ENT Exam ENT Exam: Mucous Membranes Moist - Neck Exam Neck exam: Positive for: Normal Inspection - Respiratory Exam Respiratory Exam: Clear to Auscultation Bilateral, NORMAL BREATHING PATTERN - Cardiovascular Exam Cardiovascular Exam: REGULAR RHYTHM, +S1, +S2 - GI/Abdominal Exam GI & Abdominal Exam: Distended, Guarding, Normal Bowel Sounds, Tenderness (suprapubic ). absent: Rigid - Rectal Exam Rectal Exam: Deferred - Extremities Exam Extremities exam: Positive for: normal inspection - Back Exam Back exam: NORMAL INSPECTION. absent: CVA tenderness (L), CVA tenderness (R) - Neurological Exam Neurological exam: Alert, CN II-XII Intact, Normal Gait, Oriented x3, Reflexes Normal - Psychiatric Exam Psychiatric exam: Normal Affect - Skin Skin Exam: Dry, Intact, Normal Color, Warm Results - Vital Signs Recent Vital Signs: Last Vital Signs Temp 97.6 F 03/13/19 04:19 Pulse 58 L 03/13/19 04:49 Resp 16 03/13/19 04:49 BP 127/76 03/13/19 04:19 Pulse Ox 94 L 03/13/19 04:49 - Labs Result Diagrams: 03/12/19 21:33 03/12/19 21:33 Labs: Laboratory Results - last 24 hr 03/12/19 03/12/19 03/13/19 21:33 21:33 02:08 WBC 8.4 RBC 4.82 Hgb 15.2 Hct 45.9 MCV 95.2 H MCH 31.6 H MCHC 33.2 RDW 12.7 Plt Count 254 MPV 6.8 L Neut % (Auto) 78.9 H Lymph % (Auto) 10.7 L [place] % (Auto) 7.8 Eos % (Auto) 2.1 Baso % (Auto) 0.5 Neut # (Auto) 6.6 Lymph # (Auto) 0.9 L [place] # (Auto) 0.7 Eos # (Auto) 0.2 Baso # (Auto) 0.0 pO2 24 L VBG pH 7.36 VBG pCO2 56 VBG HCO3 26.9 VBG Total CO2 33.3 H VBG O2 Sat (Calc) 45.5 VBG Base Excess 4.6 H VBG Potassium 4.6 Glucose 82 Lactate 1.9 FiO2 21.0 Sodium 137 134.0 Potassium 4.7 Chloride 97 L 100.0 Carbon Dioxide 31 H Anion Gap 14 BUN 14 Creatinine 0.8 Est GFR ( Amer) > 60 Est GFR (Non-Af Amer) > 60 POC Glucose (mg/dL) Random Glucose 102 Calcium 9.2 Total Bilirubin 0.5 AST 41 ALT 43 Alkaline Phosphatase 124 Troponin I < 0.0120 Total Protein 7.1 Albumin 4.3 Globulin 2.8 Albumin/Globulin Ratio 1.5 Lipase 133 Venous Blood Potassium 4.6 03/13/19 05:22 WBC RBC Hgb Hct MCV MCH MCHC RDW Plt Count MPV Neut % (Auto) Lymph % (Auto) [place] % (Auto) Eos % (Auto) Baso % (Auto) Neut # (Auto) Lymph # (Auto) F[place] # (Auto) Eos # (Auto) Baso # (Auto) pO2 VBG pH VBG pCO2 VBG HCO3 VBG Total CO2 VBG O2 Sat (Calc) VBG Base Excess VBG Potassium Glucose Lactate FiO2 Sodium Potassium Chloride Carbon Dioxide Anion Gap BUN Creatinine Est GFR ( Amer) Est GFR (Non-Af Amer) POC Glucose (mg/dL) 100 Random Glucose Calcium Total Bilirubin AST ALT Alkaline Phosphatase Troponin I Total Protein Albumin Globulin Albumin/Globulin Ratio Lipase Venous Blood Potassium Assessment & Plan - Assessment and Plan (Free Text) Assessment: A/P: 73 y/o M with PMH of HTN, DM-II, CAD s/p PCI 2018 and abdominal surgery (unknown) admitted to [facility] for partial SBO. Abdominal pain due to partial SBO - Afebrile, CBC and CMP WNL - CT a/p: Moderate uncomplicated partial small bowel obstruction, Transition zone in the right lower quadrant - Consult Surgery, f/u recs - NPO for now - NG tube - C/w IVF - PRN Zofran and pain management as ordered - Continue rest of the plan as ordered Post-nasal drip - Flonase as ordered HTN, Controlled, chronic - C/w home medications CAD s/p PCI 2018 - C/w home medications as ordered DM-II, Chronic,controlled - Sliding scale insulin/Hypoglycemic protocol/AccuChecks DVT PPX - Lovenox SC Case discussed and patient seen with Dr. Guerrero. <Shoaib Guerrero - Last Filed: 03/15/19 08:51> Results - Vital Signs Recent Vital Signs: Last Vital Signs Temp 97.6 F 03/15/19 08:01 Pulse 54 L 03/15/19 08:01 Resp 18 03/15/19 08:01 BP 137/75 03/15/19 08:01 Pulse Ox 99 03/15/19 08:01 - Labs Result Diagrams: 03/15/19 06:05 03/15/19 06:05 Labs: Laboratory Results - last 24 hr 03/14/19 03/14/19 03/14/19 08:40 08:40 10:46 WBC 5.7 RBC 4.49 Hgb 13.9 Hct 42.7 MCV 95.0 H MCH 30.9 MCHC 32.6 L RDW 13.1 Plt Count 204 MPV 6.7 L Neut % (Auto) 64.4 Lymph % (Auto) 21.3 [place] % (Auto) 11.4 H Eos % (Auto) 2.3 Baso % (Auto) 0.6 Neut # (Auto) 3.7 Lymph # (Auto) 1.2 Frio # (Auto) 0.6 Eos # (Auto) 0.1 Baso # (Auto) 0.0 Sodium 137 Potassium 3.6 Chloride 104 Carbon Dioxide 27 Anion Gap 10 BUN 15 Creatinine 0.7 L Est GFR ( Amer) > 60 Est GFR (Non-Af Amer) > 60 POC Glucose (mg/dL) 72 Random Glucose 86 Calcium 7.9 L Phosphorus 2.5 Magnesium 1.9 Total Bilirubin 0.7 AST 32 ALT 42 Alkaline Phosphatase 105 Total Protein 5.5 L Albumin 3.1 L D Globulin 2.4 Albumin/Globulin Ratio 1.3 03/14/19 03/14/19 03/15/19 15:59 21:51 05:21 WBC RBC Hgb Hct MCV MCH MCHC RDW Plt Count MPV Neut % (Auto) Lymph % (Auto) Frio % (Auto) Eos % (Auto) Baso % (Auto) Neut # (Auto) Lymph # (Auto) Frio # (Auto) Eos # (Auto) Baso # (Auto) Sodium Potassium Chloride Carbon Dioxide Anion Gap BUN Creatinine Est GFR ( Amer) Est GFR (Non-Af Amer) POC Glucose (mg/dL) 71 116 H 113 H Random Glucose Calcium Phosphorus Magnesium Total Bilirubin AST ALT Alkaline Phosphatase Total Protein Albumin Globulin Albumin/Globulin Ratio 03/15/19 03/15/19 06:05 06:05 WBC 5.1 RBC 4.51 Hgb 14.1 Hct 42.0 MCV 93.0 D MCH 31.2 H MCHC 33.6 RDW 12.6 Plt Count 220 MPV Neut % (Auto) Lymph % (Auto) Frio % (Auto) Eos % (Auto) Baso % (Auto) Neut # (Auto) Lymph # (Auto) Frio # (Auto) Eos # (Auto) Baso # (Auto) Sodium 137 Potassium 3.5 L Chloride 105 Carbon Dioxide 27 Anion Gap 9 L BUN 12 Creatinine 0.7 L Est GFR ( Amer) > 60 Est GFR (Non-Af Amer) > 60 POC Glucose (mg/dL) Random Glucose 103 Calcium 8.3 L Phosphorus Magnesium Total Bilirubin 0.8 AST 28 ALT 32 Alkaline Phosphatase 97 Total Protein 5.7 L Albumin 3.3 L Globulin 2.5 Albumin/Globulin Ratio 1.3 Assessment & Plan - Assessment and Plan (Free Text) Assessment: Patient was personally seen and examined by me in rounds with residents. Available labs and diagnostic data reviewed. Case, Patient's condition and management plan discussed with residents in rounds. Agree with resident's progress note. Plan: As ordered.
[2019-03-13] MEDS ORDERED: Dextrose 50% SYRINGE Inj (50 ml) IV PRN (06:57)
[2019-03-13] MEDS ORDERED: Glucagon Recombinant 1 mg Inj IM PRN (06:57)
--- NOTE | 2019-03-13 07:44 | RAD ---
Date of service: 03/13/2019 HISTORY: NGT placement COMPARISON: 01/22/2019 TECHNIQUE: 1 view obtained. FINDINGS: LUNGS: Current lung volumes less now than No consolidation. PLEURA: No significant pleural effusion identified, no pneumothorax apparent. CARDIOVASCULAR: No aortic atherosclerotic calcification present. Normal cardiac size. No pulmonary vascular congestion. OSSEOUS STRUCTURES: Mild-moderate thoracic spondylosis. VISUALIZED UPPER ABDOMEN: Interval insertion nasogastric tube tip beyond the inferior image edge. Sidehole over gastric cardia region. OTHER FINDINGS: None. IMPRESSION: Interval nasogastric tube insertion sidehole at gastric cardia level. Likely a satisfactory. No acute cardiopulmonary pathology noted.
[2019-03-13] MEDS: Insulin Lispro (humaLOG) 100 Units/ml Inj SC SCH ×4 (08:12→21:28)
[2019-03-13] MEDS: Sodium Chloride 0.9% 1,000 ML IV SCH ×2 (09:07→16:54)
[2019-03-13] MEDS ORDERED: Chlorhexidine Gluconate 1 APPL/PKT TP ONE (10:16)
[2019-03-13] MEDS: Enoxaparin 40 mg Syringe SC SCH (10:40)
--- NOTE | 2019-03-13 11:51 | CARD ---
APPROVED REPORT Date of service: 03/12/2019 EKG Measurement Heart [id number] <Conclusion> Sinus bradycardia Otherwise normal ECG
[2019-03-13] MEDS: Metoprolol Succinate 25 mg XL Tab PO SCH (12:02)
--- NOTE | 2019-03-13 12:17 | CT ---
PROCEDURE: CT Angiography Chest, Abdomen and Pelvis with and without intravenous contrast HISTORY: abd pain/back pain COMPARISON: None. TECHNIQUE: Contiguous axial images of the chest, abdomen and pelvis were obtained in the phase of aortic enhancement. A noncontrast enhanced CT of the chest was also obtained to evaluate for possible intramural thrombus. Coronal and sagittal reformats were generated. IV dose administered: 90 mL Omnipaque 300 Radiation dose: Total exam DLP = 497.93 mGy-cm. This CT exam was performed using one or more of the following dose reduction techniques: Automated exposure control, adjustment of the mA and/or kV according to patient size, and/or use of iterative reconstruction technique. FINDINGS: CT ANGIOGRAPHY OF THE CHEST WITH & WITHOUT CONTRAST: AORTA (CHEST AND ABDOMEN): The thoracic and abdominal aorta are negative for any aneurysm, dissection or rupture. No intramural thrombus identified in the thoracic aorta on the non-contrast ct of the chest. There are atherosclerotic vascular calcifications in the segments however noted including coronary artery disease calcifications. The celiac axis, superior mesenteric artery, inferior mesenteric artery and the renal arteries are widely patent. Some atherosclerotic vascular calcifications in all the segments is noted. The left renal artery appears to bifurcate outside left The pelvic arteries have atherosclerotic vascular calcifications associated with them. In the proximal left common iliac artery there is focal fusiform like mild aneurysmal dilatation measuring up to 16.3 mm (coronal series 604, image 57 this is over a length of 2.0 cm. There is a sub mm linear hypodensity over this area (axial series 6, image 177 which may represent a track sub mm fibrin thread. A reflection of dissection cannot be entirely excluded. No typical dual lumens here however are identified. No differential enhancement here otherwise seen either. The findings are indeterminate and nonspecific. No extra luminal blood here seen. Renal pelvis. LUNGS: No suspicious mass or or consolidation. A benign-appearing 6 to 7 mm calcified granuloma in the lingula is noted. MEDIASTINUM: The thoracic esophagus is diffusely dilated. A distal obstructing mass is not identified. Hiatal hernia is noted near the distal esophagus/GE junction. Consider follow-up GI consultation in this regard.. Normal caliber aorta and pulmonary arterial trunk. No aortic dissection. Normal size heart. LYMPH NODES: Unremarkable. PLEURA: Unremarkable. No pneumothorax. No pleural fluid. BONES: Degenerative changes noted OTHER FINDINGS: None. CT ANGIOGRAPHY OF THE ABDOMEN AND PELVIS WITH CONTRAST: LIVER: Unremarkable. No gross lesion or ductal dilatation. GALLBLADDER AND BILE DUCTS: Unremarkable. PANCREAS: Unremarkable. No gross lesion or ductal dilatation. SPLEEN: Unremarkable. ADRENALS: Unremarkable. No mass. KIDNEYS AND URETERS: No hydronephrosis. No gross suspicious appearing masses. Probable bilateral renal cysts the largest is on the right measuring up to approximately 3.5 cm. That on the left is approximately 2.1 cm. VASCULATURE: Unremarkable. No aortic aneurysm. No aortic atherosclerotic calcification or mural plaque present. STOMACH AND BOWEL: Stomach is distended. This continues into the thoracic esophagus. Hiatal hernia present. There is marked of the small bowel patient with fecalization also suggested in the small bowel loops. Colon appears collapsed. These extensive Cordelia dilated and fecalized small bowel loops extend into the pelvis-a source of obstructing mass is not identified with certainty. However the level of small bowel obstruction is likely very distal the pelvis. The right colon is filled with stool. Left colon is decompressed. The rectal wall appears somewhat thickened circumferentially the chronicity of this is un known-an element of chronic proctitis is a consideration. Top-normal rectal wall thickening is another. Eccentric mural thickening here is seen. Correlation with the APPENDIX: Not identified with certainty. PERITONEUM: Unremarkable. Minimal intra-abdominal free fluid is believed present rectal exam recommended.. No free air. LYMPH NODES: Unremarkable. No enlarged lymph nodes. BLADDER: Bladder is not distended to further comment on. REPRODUCTIVE: The prostate is probably a minimally prominent measuring up to 4.4 cm. And few small prostatic calcifications are present. BONES: No acute fracture. OTHER FINDINGS: Manager Print image shows multiple surgical clips over upper central abdomen-correlate clinically. IMPRESSION: No thoracic or abdominal level aneurysm or dissection seen. This is compatible with the preliminary [place] [facility] report offered. 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 Conceivably a dissection of unknown chronicity cannot be excluded. No extra luminal blood here seen. No differential enhancement the typical of the acute dissection noted. Findings are indeterminate. This was not mention on the preliminary [place] [facility] report. Distended small bowel-concerning for a very distal small bowel obstruction-level in the deep pelvis obstructing mass identified. Extensive stool in the right colon. Left colon collapse. Distended stomach with hiatal hernia. Distended thoracic esophagus-an obstructing distal thoracic esophageal lesion is not identified. Surgical consult recommended. Follow-up advised. No pulmonary embolism. No intra-abdominal intrapelvic thrombus. Other findings as above. Comments: Study marked for PA review .
[2019-03-14] MEDS: Sodium Chloride 0.9% 1,000 ML IV SCH ×3 (03:56→07:32)
[2019-03-14] MEDS: Insulin Lispro (humaLOG) 100 Units/ml Inj SC SCH ×4 (08:00→22:10)
--- NOTE | 2019-03-14 08:20 | CP.PCM.PN ---
<Boyd Malik - Last Filed: 03/14/19 11:13> Subjective - Date & Time of Evaluation Date of Evaluation: 03/14/19 Time of Evaluation: 08:20 - Subjective Subjective: Patient seen and examined this morning with dr Guerrero. No acute event overnight. Patient denies abd pain at this time, no nausea/vomiting, or fever/chills, denies BM but passing gas per rectum. NGT in place with 150 cc over 24 hours. Objective - Vital Signs/Intake and Output Vital Signs (last 24 hours): Temp Pulse Resp BP Pulse Ox 98.0 F 79 18 127/76 97 03/14/19 08:05 03/14/19 08:05 03/14/19 08:05 03/14/19 08:05 03/14/19 08:05 Intake and Output: 03/14/19 03/14/19 06:59 18:59 Output Total 150 Balance -150 - Medications Medications: Current Medications Acetaminophen (Tylenol 325mg Tab) 650 mg PO Q6 PRN PRN Reason: Pain, moderate (4-7) Last Admin: 03/14/19 06:25 Dose: 650 mg Acetaminophen (Tylenol 325mg Tab) 650 mg PO Q6 PRN PRN Reason: Fever >100.4 F Albuterol/Ipratropium (Duoneb 3 Mg/0.5 Mg (3 Ml) Ud) 3 ml INH RQ4 PRN PRN Reason: Shortness of Breath Aspirin (Ecotrin) 81 mg PO DAILY [facility] Last Admin: 03/13/19 10:43 Dose: 81 mg Atorvastatin Calcium (Lipitor) 20 mg PO DAILY [facility] Last Admin: 03/13/19 10:40 Dose: 20 mg Dextrose (Dextrose 50% Inj) 0 ml IV STAT PRN; Protocol PRN Reason: Hypoglycemia Protocol Last Admin: 03/14/19 05:57 Dose: 50 ml Dextrose (Glutose 15) 0 gm PO ONCE PRN; Protocol PRN Reason: Hypoglycemia Protocol Enoxaparin Sodium (Lovenox) 40 mg SC DAILY [facility]; Protocol Last Admin: 03/13/19 10:40 Dose: 40 mg Fluticasone Propionate (Flonase) 2 spr ARLETH DAILY [facility] Last Admin: 03/13/19 10:44 Dose: 2 spr Glucagon (Glucagen Diagnostic Kit) 0 mg IM STAT PRN; Protocol PRN Reason: Hypoglycemia Protocol Hydromorphone HCl (Dilaudid) 0.5 mg IVP Q4H PRN PRN Reason: Pain, severe (8-10) Sodium Chloride (Sodium Chloride 0.9%) 1,000 mls @ 125 mls/hr IV .Q8H [facility] Last Admin: 03/14/19 03:56 Dose: 125 mls/hr Insulin Human Lispro (Humalog) 0 units SC ACHS [facility]; Protocol Last Admin: 03/13/19 21:28 Dose: Not Given Isosorbide Mononitrate (Imdur Er) 30 mg PO DAILY [facility] Last Admin: 03/13/19 10:40 Dose: 30 mg Ketorolac Tromethamine (Toradol) 15 mg IVP Q6 PRN PRN Reason: Pain, severe (8-10) Metoprolol Succinate (Toprol Xl) 25 mg PO DAILY [facility] Last Admin: 03/13/19 12:02 Dose: 25 mg Montelukast Sodium (Singulair) 10 mg PO HS [facility] Last Admin: 03/13/19 21:22 Dose: 10 mg Ondansetron HCl (Zofran Inj) 4 mg IVP Q6 PRN PRN Reason: Nausea/Vomiting Pantoprazole Sodium (Protonix Inj) 40 mg IVP DAILY [facility] Last Admin: 03/13/19 10:43 Dose: 40 mg - Labs Labs: 03/12/19 21:33 03/12/19 21:33 - Constitutional Appears: No Acute Distress - Head Exam Head Exam: NORMAL INSPECTION - Eye Exam Eye Exam: EOMI, PERRL - ENT Exam ENT Exam: Mucous Membranes Moist Additional comments: NGT noted in place to wall suction - Respiratory Exam Respiratory Exam: Clear to Ausculation Bilateral, NORMAL BREATHING PATTERN. absent: Chest Wall Tenderness - Cardiovascular Exam Cardiovascular Exam: REGULAR RHYTHM, +S1, +S2. absent: Tachycardia - GI/Abdominal Exam GI & Abdominal Exam: Distended (mild distention), Normal Bowel Sounds. absent: Guarding, Rigid, Tenderness - Extremities Exam Extremities Exam: absent: Calf Tenderness, Pedal Edema - Neurological Exam Neurological Exam: Alert, Awake, CN II-XII Intact, Oriented x3 - Psychiatric Exam Psychiatric exam: Normal Mood - Skin Skin Exam: Dry, Warm Assessment and Plan - Assessment and Plan (Free Text) Assessment: A/P: 73 y/o M with PMH of HTN, DM-II, CAD s/p PCI 2017 and abdominal surgery (unknown) admitted due to partial SBO. Partial SBO - Afebrile, CBC and CMP WNL - VSS - abd CT: Moderate uncomplicated partial small bowel obstruction, Transition zone in the right lower quadrant - General Surgery on board, f/u recs - NPO - NG tube - C/w IVF - PRN Zofran and pain management as ordered - Continue rest of the plan as ordered HTN, - Controlled, chronic - C/w home medications CAD s/p PCI 2017 - C/w home medications as ordered DM-II, - controlled - Sliding scale insulin/Hypoglycemic protocol/AccuChecks DVT PPX - Lovenox SC Case discussed and patient seen with Dr. Guerrero. <Shoaib Guerrero - Last Filed: 03/16/19 15:23> Objective - Vital Signs/Intake and Output Vital Signs (last 24 hours): Temp Pulse Resp BP Pulse Ox 97.3 F L 74 20 145/76 97 03/16/19 08:58 03/16/19 08:58 03/16/19 08:58 03/16/19 08:58 03/16/19 08:58 - Medications Medications: Current Medications Acetaminophen (Tylenol 325mg Tab) 650 mg PO Q6 PRN PRN Reason: Fever >100.4 F Acetaminophen (Tylenol 325mg Tab) 650 mg PO Q6 PRN PRN Reason: Pain, Mild (1-3) Albuterol/Ipratropium (Duoneb 3 Mg/0.5 Mg (3 Ml) Ud) 3 ml INH RQ4 PRN PRN Reason: Shortness of Breath Aspirin (Ecotrin) 81 mg PO DAILY [facility] Last Admin: 03/16/19 08:14 Dose: 81 mg Atorvastatin Calcium (Lipitor) 20 mg PO DAILY [facility] Last Admin: 03/16/19 08:14 Dose: 20 mg Dextrose (Dextrose 50% Inj) 0 ml IV STAT PRN; Protocol PRN Reason: Hypoglycemia Protocol Last Admin: 03/14/19 05:57 Dose: 50 ml Dextrose (Glutose 15) 0 gm PO ONCE PRN; Protocol PRN Reason: Hypoglycemia Protocol Docusate Sodium (Colace) 100 mg PO BID [facility] Last Admin: 03/16/19 12:26 Dose: 100 mg Enoxaparin Sodium (Lovenox) 40 mg SC DAILY [facility]; Protocol Last Admin: 03/16/19 08:13 Dose: 40 mg Fluticasone Propionate (Flonase) 2 spr ARLETH DAILY [facility] Last Admin: 03/16/19 08:13 Dose: 2 spr Glucagon (Glucagen Diagnostic Kit) 0 mg IM STAT PRN; Protocol PRN Reason: Hypoglycemia Protocol Hydromorphone HCl (Dilaudid) 0.5 mg IVP Q4H PRN PRN Reason: Pain, severe (8-10) Potassium Chloride/Dextrose/Sod Cl (Potassium Chl 20 Meq In D5-1/2ns) 1,000 mls @ 100 mls/hr IV .Q10H [facility] Stop: 03/17/19 10:00 Last Admin: 03/16/19 12:30 Dose: 100 mls/hr Insulin Human Lispro (Humalog) 0 units SC ACHS [facility]; Protocol Last Admin: 03/16/19 11:25 Dose: Not Given Isosorbide Mononitrate (Imdur Er) 30 mg PO DAILY [facility] Last Admin: 03/16/19 08:14 Dose: 30 mg Ketorolac Tromethamine (Toradol) 15 mg IVP Q6 PRN PRN Reason: Pain, moderate (4-7) Metoprolol Succinate (Toprol Xl) 25 mg PO DAILY [facility] Last Admin: 03/16/19 08:14 Dose: 25 mg Montelukast Sodium (Singulair) 10 mg PO HS [facility] Last Admin: 03/15/19 21:15 Dose: Not Given Ondansetron HCl (Zofran Inj) 4 mg IVP Q6 PRN PRN Reason: Nausea/Vomiting Pantoprazole Sodium (Protonix Inj) 40 mg IVP DAILY [facility] Last Admin: 03/16/19 08:14 Dose: 40 mg Polyethylene Glycol (Miralax) 17 gm PO DAILY [facility] Last Admin: 03/16/19 12:26 Dose: 17 gm Sennosides (Senokot Tab) 8.6 mg PO BID [facility] Last Admin: 03/16/19 12:26 Dose: 8.6 mg - Labs Labs: 03/16/19 05:10 03/16/19 05:10 Assessment and Plan - Assessment and Plan (Free Text) Assessment: Patient was personally seen and examined by me in rounds with residents. Available labs and diagnostic data reviewed. Case, Patient's condition and management plan discussed with residents in rounds. Agree with resident's progress note. Plan: As ordered.
--- NOTE | 2019-03-14 08:34 | CP.PCM.PN ---
<Teja Rodriguez - Last Filed: 03/14/19 08:31> Subjective - Date & Time of Evaluation Date of Evaluation: 03/14/19 Time of Evaluation: 08:31 - Subjective Subjective: General Surgery Note for Dr. Todd Patient seen and examined at bedside. No acute event overnight. Patient denies abd pain, nausea/vomiting, or fever/chills. He admits to passing flatus but denies BM. Patient does report groin pain, no hernia noted. NGT with 150 cc over 24 hours. Objective - Vital Signs/Intake and Output Vital Signs (last 24 hours): Temp Pulse Resp BP Pulse Ox 98.0 F 79 18 127/76 97 03/14/19 08:05 03/14/19 08:05 03/14/19 08:05 03/14/19 08:05 03/14/19 08:05 Intake and Output: 03/14/19 03/14/19 06:59 18:59 Output Total 150 Balance -150 - Medications Medications: Current Medications Acetaminophen (Tylenol 325mg Tab) 650 mg PO Q6 PRN PRN Reason: Pain, moderate (4-7) Last Admin: 03/14/19 06:25 Dose: 650 mg Acetaminophen (Tylenol 325mg Tab) 650 mg PO Q6 PRN PRN Reason: Fever >100.4 F Albuterol/Ipratropium (Duoneb 3 Mg/0.5 Mg (3 Ml) Ud) 3 ml INH RQ4 PRN PRN Reason: Shortness of Breath Aspirin (Ecotrin) 81 mg PO DAILY [facility] Last Admin: 03/13/19 10:43 Dose: 81 mg Atorvastatin Calcium (Lipitor) 20 mg PO DAILY [facility] Last Admin: 03/13/19 10:40 Dose: 20 mg Dextrose (Dextrose 50% Inj) 0 ml IV STAT PRN; Protocol PRN Reason: Hypoglycemia Protocol Last Admin: 03/14/19 05:57 Dose: 50 ml Dextrose (Glutose 15) 0 gm PO ONCE PRN; Protocol PRN Reason: Hypoglycemia Protocol Enoxaparin Sodium (Lovenox) 40 mg SC DAILY [facility]; Protocol Last Admin: 03/13/19 10:40 Dose: 40 mg Fluticasone Propionate (Flonase) 2 spr ARLETH DAILY [facility] Last Admin: 03/13/19 10:44 Dose: 2 spr Glucagon (Glucagen Diagnostic Kit) 0 mg IM STAT PRN; Protocol PRN Reason: Hypoglycemia Protocol Hydromorphone HCl (Dilaudid) 0.5 mg IVP Q4H PRN PRN Reason: Pain, severe (8-10) Sodium Chloride (Sodium Chloride 0.9%) 1,000 mls @ 125 mls/hr IV .Q8H [facility] Last Admin: 03/14/19 03:56 Dose: 125 mls/hr Insulin Human Lispro (Humalog) 0 units SC [facility]; Protocol Last Admin: 03/13/19 21:28 Dose: Not Given Isosorbide Mononitrate (Imdur Er) 30 mg PO DAILY [facility] Last Admin: 03/13/19 10:40 Dose: 30 mg Ketorolac Tromethamine (Toradol) 15 mg IVP Q6 PRN PRN Reason: Pain, severe (8-10) Metoprolol Succinate (Toprol Xl) 25 mg PO DAILY [facility] Last Admin: 03/13/19 12:02 Dose: 25 mg Montelukast Sodium (Singulair) 10 mg PO HS [facility] Last Admin: 03/13/19 21:22 Dose: 10 mg Ondansetron HCl (Zofran Inj) 4 mg IVP Q6 PRN PRN Reason: Nausea/Vomiting Pantoprazole Sodium (Protonix Inj) 40 mg IVP DAILY [facility] Last Admin: 03/13/19 10:43 Dose: 40 mg - Labs Labs: 03/12/19 21:33 03/12/19 21:33 - Additional Findings Additional findings: - Constitutional Appears: No Acute Distress, Unkempt - Head Exam Head Exam: ATRAUMATIC, NORMOCEPHALIC - Eye Exam Eye Exam: EOMI, Normal appearance Pupil Exam: PERRL - ENT Exam ENT Exam: Mucous Membranes Moist - Respiratory Exam Respiratory Exam: NORMAL BREATHING PATTERN - Cardiovascular Exam Cardiovascular Exam: REGULAR RHYTHM - GI/Abdominal Exam GI & Abdominal Exam: Distended (improved), Normal Bowel Sounds, Soft. absent: Firm, Guarding, Mass, Rebound, Rigid, Tenderness. - Extremities Exam Extremities exam: Positive for: normal capillary refill - Back Exam Back exam: absent: CVA tenderness (L), CVA tenderness (R) - Neurological Exam Neurological exam: Alert, CN II-XII Intact, Oriented x3 - Psychiatric Exam Psychiatric exam: Normal Affect, Normal Mood - Skin Skin Exam: Dry, Intact, Warm Assessment and Plan - Assessment and Plan (Free Text) Assessment: 73M who presents with pSBO Plan: -NPO -NGT to low intermittent suction -IVF -Pain control -Anti-emetics PRN -Monitor bowel function -Serial abd exams -I's&O's -Fleet enema this AM -Further recs as per Dr. Hoffmann PGY2 <Farzad Ware - Last Filed: 03/15/19 16:15> Objective - Vital Signs/Intake and Output Vital Signs (last 24 hours): Temp Pulse Resp BP Pulse Ox 97.6 F 54 L 18 137/75 99 03/15/19 08:01 03/15/19 08:01 03/15/19 08:01 03/15/19 08:01 03/15/19 08:01 - Medications Medications: Current Medications Acetaminophen (Tylenol 325mg Tab) 650 mg PO Q6 PRN PRN Reason: Fever >100.4 F Acetaminophen (Tylenol 325mg Tab) 650 mg PO Q6 PRN PRN Reason: Pain, Mild (1-3) Albuterol/Ipratropium (Duoneb 3 Mg/0.5 Mg (3 Ml) Ud) 3 ml INH RQ4 PRN PRN Reason: Shortness of Breath Aspirin (Ecotrin) 81 mg PO DAILY [facility] Last Admin: 03/15/19 08:47 Dose: 81 mg Atorvastatin Calcium (Lipitor) 20 mg PO DAILY [facility] Last Admin: 03/15/19 08:47 Dose: 20 mg Dextrose (Dextrose 50% Inj) 0 ml IV STAT PRN; Protocol PRN Reason: Hypoglycemia Protocol Last Admin: 03/14/19 05:57 Dose: 50 ml Dextrose (Glutose 15) 0 gm PO ONCE PRN; Protocol PRN Reason: Hypoglycemia Protocol Enoxaparin Sodium (Lovenox) 40 mg SC DAILY [facility]; Protocol Last Admin: 03/15/19 08:46 Dose: 40 mg Fluticasone Propionate (Flonase) 2 spr ARLETH DAILY [facility] Last Admin: 03/15/19 08:48 Dose: 2 spr Glucagon (Glucagen Diagnostic Kit) 0 mg IM STAT PRN; Protocol PRN Reason: Hypoglycemia Protocol Hydromorphone HCl (Dilaudid) 0.5 mg IVP Q4H PRN PRN Reason: Pain, severe (8-10) Insulin Human Lispro (Humalog) 0 units SC ACHS [facility]; Protocol Last Admin: 03/15/19 12:12 Dose: Not Given Isosorbide Mononitrate (Imdur Er) 30 mg PO DAILY [facility] Last Admin: 03/15/19 08:47 Dose: 30 mg Ketorolac Tromethamine (Toradol) 15 mg IVP Q6 PRN PRN Reason: Pain, moderate (4-7) Metoprolol Succinate (Toprol Xl) 25 mg PO DAILY [facility] Last Admin: 03/15/19 08:47 Dose: 25 mg Montelukast Sodium (Singulair) 10 mg PO HS [facility] Last Admin: 03/14/19 21:46 Dose: 10 mg Ondansetron HCl (Zofran Inj) 4 mg IVP Q6 PRN PRN Reason: Nausea/Vomiting Pantoprazole Sodium (Protonix Inj) 40 mg IVP DAILY [facility] Last Admin: 03/15/19 08:52 Dose: 40 mg - Labs Labs: 03/15/19 06:05 03/15/19 06:05 Assessment and Plan - Assessment and Plan (Free Text) Assessment: All medical record entries made by the resident were at my direction. I have reviewed the chart and agree that the record accurately reflects my personal performance of the history, physical exam, and medical decision making. Unclear if he is constipated vs obstructed
[2019-03-14 08:59] LABS: BASO % 0.6 % (0.0-2.0); EOS # 0.1 K/uL (0.0-0.7); EOS % 2.3 % (0.0-4.0); HEMOGLOBIN 13.9 g/dL (12.0-18.0); LYMPH # 1.2 K/uL (1.0-4.3); LYMPH % 21.3 % (20.0-40.0); MEAN CORPUSCULAR HEMOGLOBIN 30.9 pg (27.0-31.0); MEAN CORPUSCULAR HGB CONC 32.6 g/dL (33.0-37.0); MEAN PLATELET VOLUME 6.7 fl (7.2-11.7); MONO # 0.6 K/uL (0.0-0.8); MONO % 11.4 % (0.0-10.0); NEUT # 3.7 K/uL (1.8-7.0); NEUT % 64.4 % (50.0-75.0); RBC 4.49 Mil/uL (4.40-5.90); RED CELL DISTRIBUTION WIDTH 13.1 % (11.5-14.5); WHITE BLOOD COUNT 5.7 K/uL (4.8-10.8)
[2019-03-14 09:27] LABS: ALB/GLOB RATIO 1.3 (1.0-2.1); ALBUMIN 3.1 g/dL (3.5-5.0); ALT/SGPT 42 U/L (21-72); AST/SGOT 32 U/L (17-59); BLOOD UREA NITROGEN 15 mg/dl (9-20); CALCIUM 7.9 mg/dL (8.4-10.2); GFR NON-AFRICAN AMERICAN > 60
[2019-03-14] MEDS: Enoxaparin 40 mg Syringe SC SCH (09:30)
[2019-03-14] MEDS: Metoprolol Succinate 25 mg XL Tab PO SCH (09:31)
[2019-03-14] MEDS: Dextrose 5%/0.45% NS 1,000 ML IV SCH (16:09)
[2019-03-15] MEDS: Dextrose 5%/0.45% NS 1,000 ML IV SCH (01:35)
[2019-03-15 06:40] LABS: HEMOGLOBIN 14.1 g/dL (12.0-18.0); MEAN CORPUSCULAR HEMOGLOBIN 31.2 pg (27.0-31.0); MEAN CORPUSCULAR HGB CONC 33.6 g/dL (33.0-37.0); RBC 4.51 Mil/uL (4.40-5.90); RED CELL DISTRIBUTION WIDTH 12.6 % (11.5-14.5); WHITE BLOOD COUNT 5.1 K/uL (4.8-10.8)
[2019-03-15 06:53] LABS: ALB/GLOB RATIO 1.3 (1.0-2.1); ALBUMIN 3.3 g/dL (3.5-5.0); ALT/SGPT 32 U/L (21-72); AST/SGOT 28 U/L (17-59); BLOOD UREA NITROGEN 12 mg/dl (9-20); CALCIUM 8.3 mg/dL (8.4-10.2); GFR NON-AFRICAN AMERICAN > 60
--- NOTE | 2019-03-15 08:11 | CP.PCM.PN ---
<Boyd Malik - Last Filed: 03/15/19 11:24> Subjective - Date & Time of Evaluation Date of Evaluation: 03/15/19 Time of Evaluation: 08:11 - Subjective Subjective: Patient seen and examined this morning with Dr Guerrero. No acute event overnight. Patient denies abd pain at this time, no nausea/vomiting, or fever/chills, reports normal consistency BM yesterday NGT in place with 350 cc over night Objective - Vital Signs/Intake and Output Vital Signs (last 24 hours): Temp Pulse Resp BP Pulse Ox 97.6 F 54 L 18 137/75 99 03/15/19 08:01 03/15/19 08:01 03/15/19 08:01 03/15/19 08:01 03/15/19 08:01 - Medications Medications: Current Medications Acetaminophen (Tylenol 325mg Tab) 650 mg PO Q6 PRN PRN Reason: Pain, moderate (4-7) Last Admin: 03/14/19 06:25 Dose: 650 mg Acetaminophen (Tylenol 325mg Tab) 650 mg PO Q6 PRN PRN Reason: Fever >100.4 F Albuterol/Ipratropium (Duoneb 3 Mg/0.5 Mg (3 Ml) Ud) 3 ml INH RQ4 PRN PRN Reason: Shortness of Breath Aspirin (Ecotrin) 81 mg PO DAILY [facility] Last Admin: 03/14/19 09:31 Dose: 81 mg Atorvastatin Calcium (Lipitor) 20 mg PO DAILY [facility] Last Admin: 03/14/19 09:30 Dose: 20 mg Dextrose (Dextrose 50% Inj) 0 ml IV STAT PRN; Protocol PRN Reason: Hypoglycemia Protocol Last Admin: 03/14/19 05:57 Dose: 50 ml Dextrose (Glutose 15) 0 gm PO ONCE PRN; Protocol PRN Reason: Hypoglycemia Protocol Enoxaparin Sodium (Lovenox) 40 mg SC DAILY [facility]; Protocol Last Admin: 03/14/19 09:30 Dose: 40 mg Fluticasone Propionate (Flonase) 2 spr ARLETH DAILY [facility] Last Admin: 03/14/19 09:35 Dose: 2 spr Glucagon (Glucagen Diagnostic Kit) 0 mg IM STAT PRN; Protocol PRN Reason: Hypoglycemia Protocol Hydromorphone HCl (Dilaudid) 0.5 mg IVP Q4H PRN PRN Reason: Pain, severe (8-10) Dextrose/Sodium Chloride (Dextrose 5%/0.45% Ns 1000 Ml) 1,000 mls @ 100 mls/hr IV .Q10H [facility] Stop: 03/15/19 15:28 Last Admin: 03/15/19 01:35 Dose: 100 mls/hr Insulin Human Lispro (Humalog) 0 units SC ACHS [facility]; Protocol Last Admin: 03/14/19 22:10 Dose: Not Given Isosorbide Mononitrate (Imdur Er) 30 mg PO DAILY [facility] Last Admin: 03/14/19 09:31 Dose: 30 mg Ketorolac Tromethamine (Toradol) 15 mg IVP Q6 PRN PRN Reason: Pain, severe (8-10) Last Admin: 03/15/19 05:45 Dose: 15 mg Metoprolol Succinate (Toprol Xl) 25 mg PO DAILY [facility] Last Admin: 03/14/19 09:31 Dose: 25 mg Montelukast Sodium (Singulair) 10 mg PO HS [facility] Last Admin: 03/14/19 21:46 Dose: 10 mg Ondansetron HCl (Zofran Inj) 4 mg IVP Q6 PRN PRN Reason: Nausea/Vomiting Pantoprazole Sodium (Protonix Inj) 40 mg IVP DAILY [facility] Last Admin: 03/14/19 09:31 Dose: 40 mg - Labs Labs: 03/15/19 06:05 03/15/19 06:05 - Constitutional Appears: Non-toxic, No Acute Distress - Head Exam Head Exam: NORMAL INSPECTION - Eye Exam Eye Exam: EOMI, PERRL - ENT Exam ENT Exam: Mucous Membranes Moist - Respiratory Exam Respiratory Exam: Clear to Ausculation Bilateral, NORMAL BREATHING PATTERN. absent: Chest Wall Tenderness - Cardiovascular Exam Cardiovascular Exam: REGULAR RHYTHM, +S1, +S2. absent: Tachycardia - GI/Abdominal Exam GI & Abdominal Exam: Soft, Hypoactive Bowel Sounds. absent: Distended, Tenderness - Extremities Exam Extremities Exam: absent: Calf Tenderness, Pedal Edema - Neurological Exam Neurological Exam: Alert, Awake, CN II-XII Intact, Oriented x3 - Psychiatric Exam Psychiatric exam: Normal Mood - Skin Skin Exam: Dry, Warm Assessment and Plan - Assessment and Plan (Free Text) Assessment: A/P: 73 y/o M with PMH of HTN, DM-II, CAD s/p PCI 2018 and abdominal surgery (unknown) admitted due to partial SBO. Partial SBO - Afebrile, CBC and CMP WNL - VSS - abd CT: Moderate uncomplicated partial small bowel obstruction, Transition zone in the right lower quadrant - General Surgery on board, f/u recs - NPO - NG tube on intermittent suction - C/w IVF - PRN Zofran and pain management as ordered - Continue rest of the plan as ordered HTN, - Controlled, chronic - C/w home medications CAD s/p PCI 2017 - C/w home medications as ordered DM-II, - controlled - Sliding scale insulin/Hypoglycemic protocol/AccuChecks DVT PPX - Lovenox SC Case discussed and patient seen with Dr. Guerrero. <Shoaib Guerrero - Last Filed: 03/16/19 15:21> Objective - Vital Signs/Intake and Output Vital Signs (last 24 hours): Temp Pulse Resp BP Pulse Ox 97.3 F L 74 20 145/76 97 03/16/19 08:58 03/16/19 08:58 03/16/19 08:58 03/16/19 08:58 03/16/19 08:58 - Medications Medications: Current Medications Acetaminophen (Tylenol 325mg Tab) 650 mg PO Q6 PRN PRN Reason: Fever >100.4 F Acetaminophen (Tylenol 325mg Tab) 650 mg PO Q6 PRN PRN Reason: Pain, Mild (1-3) Albuterol/Ipratropium (Duoneb 3 Mg/0.5 Mg (3 Ml) Ud) 3 ml INH RQ4 PRN PRN Reason: Shortness of Breath Aspirin (Ecotrin) 81 mg PO DAILY [facility] Last Admin: 03/16/19 08:14 Dose: 81 mg Atorvastatin Calcium (Lipitor) 20 mg PO DAILY [facility] Last Admin: 03/16/19 08:14 Dose: 20 mg Dextrose (Dextrose 50% Inj) 0 ml IV STAT PRN; Protocol PRN Reason: Hypoglycemia Protocol Last Admin: 03/14/19 05:57 Dose: 50 ml Dextrose (Glutose 15) 0 gm PO ONCE PRN; Protocol PRN Reason: Hypoglycemia Protocol Docusate Sodium (Colace) 100 mg PO BID [facility] Last Admin: 03/16/19 12:26 Dose: 100 mg Enoxaparin Sodium (Lovenox) 40 mg SC DAILY [facility]; Protocol Last Admin: 03/16/19 08:13 Dose: 40 mg Fluticasone Propionate (Flonase) 2 spr ARLETH DAILY [facility] Last Admin: 03/16/19 08:13 Dose: 2 spr Glucagon (Glucagen Diagnostic Kit) 0 mg IM STAT PRN; Protocol PRN Reason: Hypoglycemia Protocol Hydromorphone HCl (Dilaudid) 0.5 mg IVP Q4H PRN PRN Reason: Pain, severe (8-10) Potassium Chloride/Dextrose/Sod Cl (Potassium Chl 20 Meq In D5-1/2ns) 1,000 mls @ 100 mls/hr IV .Q10H [facility] Stop: 03/17/19 10:00 Last Admin: 03/16/19 12:30 Dose: 100 mls/hr Insulin Human Lispro (Humalog) 0 units SC ACHS [facility]; Protocol Last Admin: 03/16/19 11:25 Dose: Not Given Isosorbide Mononitrate (Imdur Er) 30 mg PO DAILY [facility] Last Admin: 03/16/19 08:14 Dose: 30 mg Ketorolac Tromethamine (Toradol) 15 mg IVP Q6 PRN PRN Reason: Pain, moderate (4-7) Metoprolol Succinate (Toprol Xl) 25 mg PO DAILY [facility] Last Admin: 03/16/19 08:14 Dose: 25 mg Montelukast Sodium (Singulair) 10 mg PO HS [facility] Last Admin: 03/15/19 21:15 Dose: Not Given Ondansetron HCl (Zofran Inj) 4 mg IVP Q6 PRN PRN Reason: Nausea/Vomiting Pantoprazole Sodium (Protonix Inj) 40 mg IVP DAILY [facility] Last Admin: 03/16/19 08:14 Dose: 40 mg Polyethylene Glycol (Miralax) 17 gm PO DAILY [facility] Last Admin: 03/16/19 12:26 Dose: 17 gm Sennosides (Senokot Tab) 8.6 mg PO BID [facility] Last Admin: 03/16/19 12:26 Dose: 8.6 mg - Labs Labs: 03/16/19 05:10 03/16/19 05:10 Assessment and Plan - Assessment and Plan (Free Text) Assessment: Patient was personally seen and examined by me in rounds with residents. Available labs and diagnostic data reviewed. Case, Patient's condition and management plan discussed with residents in rounds. Agree with resident's progress note. Plan: As ordered.
[2019-03-15] MEDS: Insulin Lispro (humaLOG) 100 Units/ml Inj SC SCH ×4 (08:46→21:43)
[2019-03-15] MEDS: Enoxaparin 40 mg Syringe SC SCH (08:46)
[2019-03-15] MEDS: Metoprolol Succinate 25 mg XL Tab PO SCH (08:47)
[2019-03-15] MEDS ORDERED: Potassium Ch 20mEq in D5-1/2NS 1,000 ML IV SCH (09:55)
--- NOTE | 2019-03-15 13:41 | CP.PCM.PN ---
<Tony Francis - Last Filed: 03/15/19 15:14> Subjective - Date & Time of Evaluation Date of Evaluation: 03/15/19 Time of Evaluation: 13:40 - Subjective Subjective: Surgery Progress Note for Dr. Todd 73M seen and evaluated at bedside this morning. No acute events overnight. No complaints this morning. NGT output 350cc overnight. Denies BM or passing of flatus since yesterday morning however had small formed ebony this afternoon after fleet enema. Denies f/c, n/v/d, SOB, CP, abd pain, or urinary symptoms. Objective - Vital Signs/Intake and Output Vital Signs (last 24 hours): Temp Pulse Resp BP Pulse Ox 97.6 F 54 L 18 137/75 99 03/15/19 08:01 03/15/19 08:01 03/15/19 08:01 03/15/19 08:01 03/15/19 08:01 - Medications Medications: Current Medications Acetaminophen (Tylenol 325mg Tab) 650 mg PO Q6 PRN PRN Reason: Pain, moderate (4-7) Last Admin: 03/14/19 06:25 Dose: 650 mg Acetaminophen (Tylenol 325mg Tab) 650 mg PO Q6 PRN PRN Reason: Fever >100.4 F Albuterol/Ipratropium (Duoneb 3 Mg/0.5 Mg (3 Ml) Ud) 3 ml INH RQ4 PRN PRN Reason: Shortness of Breath Aspirin (Ecotrin) 81 mg PO DAILY [facility] Last Admin: 03/15/19 08:47 Dose: 81 mg Atorvastatin Calcium (Lipitor) 20 mg PO DAILY [facility] Last Admin: 03/15/19 08:47 Dose: 20 mg Dextrose (Dextrose 50% Inj) 0 ml IV STAT PRN; Protocol PRN Reason: Hypoglycemia Protocol Last Admin: 03/14/19 05:57 Dose: 50 ml Dextrose (Glutose 15) 0 gm PO ONCE PRN; Protocol PRN Reason: Hypoglycemia Protocol Enoxaparin Sodium (Lovenox) 40 mg SC DAILY [facility]; Protocol Last Admin: 03/15/19 08:46 Dose: 40 mg Fluticasone Propionate (Flonase) 2 spr ARLETH DAILY [facility] Last Admin: 03/15/19 08:48 Dose: 2 spr Glucagon (Glucagen Diagnostic Kit) 0 mg IM STAT PRN; Protocol PRN Reason: Hypoglycemia Protocol Hydromorphone HCl (Dilaudid) 0.5 mg IVP Q4H PRN PRN Reason: Pain, severe (8-10) Potassium Chloride/Dextrose/Sod Cl (Potassium Chl 20 Meq In D5-1/2ns) 1,000 mls @ 100 mls/hr IV .Q10H [facility] Stop: 03/15/19 15:28 Last Admin: 03/15/19 12:10 Dose: 100 mls/hr Insulin Human Lispro (Humalog) 0 units SC ACHS [facility]; Protocol Last Admin: 03/15/19 12:12 Dose: Not Given Isosorbide Mononitrate (Imdur Er) 30 mg PO DAILY [facility] Last Admin: 03/15/19 08:47 Dose: 30 mg Ketorolac Tromethamine (Toradol) 15 mg IVP Q6 PRN PRN Reason: Pain, severe (8-10) Last Admin: 03/15/19 05:45 Dose: 15 mg Metoprolol Succinate (Toprol Xl) 25 mg PO DAILY [facility] Last Admin: 03/15/19 08:47 Dose: 25 mg Montelukast Sodium (Singulair) 10 mg PO HS [facility] Last Admin: 03/14/19 21:46 Dose: 10 mg Ondansetron HCl (Zofran Inj) 4 mg IVP Q6 PRN PRN Reason: Nausea/Vomiting Pantoprazole Sodium (Protonix Inj) 40 mg IVP DAILY [facility] Last Admin: 03/15/19 08:52 Dose: 40 mg - Labs Labs: 03/15/19 06:05 03/15/19 06:05 - Constitutional Appears: Well, Non-toxic, No Acute Distress - Head Exam Head Exam: ATRAUMATIC, NORMAL INSPECTION, NORMOCEPHALIC - Eye Exam Eye Exam: EOMI - ENT Exam ENT Exam: Mucous Membranes Moist - Respiratory Exam Respiratory Exam: NORMAL BREATHING PATTERN. absent: Wheezes, Respiratory Distress - Cardiovascular Exam Cardiovascular Exam: REGULAR RHYTHM, +S1, +S2. absent: Murmur - GI/Abdominal Exam GI & Abdominal Exam: Soft, Normal Bowel Sounds. absent: Distended, Tenderness - Neurological Exam Neurological Exam: Alert, Awake, Oriented x3 - Psychiatric Exam Psychiatric exam: Normal Affect, Normal Mood - Skin Skin Exam: Dry, Intact, Normal Color, Warm Assessment and Plan - Assessment and Plan (Free Text) Assessment: 73M w/ pSBO Plan: NGT to suction - if output decreases will clamp NGT Antiemetics PRN Monitor return of bowel function NPO IVF FU GI recommendations - small bowel series Further recommendations pending attending evaluation Tony Yerosangela PGY1 <Farzad Ware - Last Filed: 03/15/19 16:10> Objective - Vital Signs/Intake and Output Vital Signs (last 24 hours): Temp Pulse Resp BP Pulse Ox 97.6 F 54 L 18 137/75 99 03/15/19 08:01 03/15/19 08:01 03/15/19 08:01 03/15/19 08:01 03/15/19 08:01 - Medications Medications: Current Medications Acetaminophen (Tylenol 325mg Tab) 650 mg PO Q6 PRN PRN Reason: Fever >100.4 F Acetaminophen (Tylenol 325mg Tab) 650 mg PO Q6 PRN PRN Reason: Pain, Mild (1-3) Albuterol/Ipratropium (Duoneb 3 Mg/0.5 Mg (3 Ml) Ud) 3 ml INH RQ4 PRN PRN Reason: Shortness of Breath Aspirin (Ecotrin) 81 mg PO DAILY [facility] Last Admin: 03/15/19 08:47 Dose: 81 mg Atorvastatin Calcium (Lipitor) 20 mg PO DAILY [facility] Last Admin: 03/15/19 08:47 Dose: 20 mg Dextrose (Dextrose 50% Inj) 0 ml IV STAT PRN; Protocol PRN Reason: Hypoglycemia Protocol Last Admin: 03/14/19 05:57 Dose: 50 ml Dextrose (Glutose 15) 0 gm PO ONCE PRN; Protocol PRN Reason: Hypoglycemia Protocol Enoxaparin Sodium (Lovenox) 40 mg SC DAILY [facility]; Protocol Last Admin: 03/15/19 08:46 Dose: 40 mg Fluticasone Propionate (Flonase) 2 spr ARLETH DAILY [facility] Last Admin: 03/15/19 08:48 Dose: 2 spr Glucagon (Glucagen Diagnostic Kit) 0 mg IM STAT PRN; Protocol PRN Reason: Hypoglycemia Protocol Hydromorphone HCl (Dilaudid) 0.5 mg IVP Q4H PRN PRN Reason: Pain, severe (8-10) Insulin Human Lispro (Humalog) 0 units SC ACHS [facility]; Protocol Last Admin: 03/15/19 12:12 Dose: Not Given Isosorbide Mononitrate (Imdur Er) 30 mg PO DAILY [facility] Last Admin: 03/15/19 08:47 Dose: 30 mg Ketorolac Tromethamine (Toradol) 15 mg IVP Q6 PRN PRN Reason: Pain, moderate (4-7) Metoprolol Succinate (Toprol Xl) 25 mg PO DAILY [facility] Last Admin: 03/15/19 08:47 Dose: 25 mg Montelukast Sodium (Singulair) 10 mg PO HS [facility] Last Admin: 03/14/19 21:46 Dose: 10 mg Ondansetron HCl (Zofran Inj) 4 mg IVP Q6 PRN PRN Reason: Nausea/Vomiting Pantoprazole Sodium (Protonix Inj) 40 mg IVP DAILY [facility] Last Admin: 03/15/19 08:52 Dose: 40 mg - Labs Labs: 03/15/19 06:05 03/15/19 06:05 Assessment and Plan - Assessment and Plan (Free Text) Plan: All medical record entries made by the resident were at my direction. I have reviewed the chart and agree that the record accurately reflects my personal performance of the history, physical exam, and medical decision making. Unclear if markedly constipated vs obstruction. Having flatus, however will await small bowel series
[2019-03-15] MEDS: Potassium Ch 20mEq in D5-1/2NS 1,000 ML IV SCH ×2 (16:37→21:44)
[2019-03-15] MEDS ORDERED: Iohexol 350mg/ml 100 ML PO ONE (19:49)
[2019-03-16] MEDS: Potassium Ch 20mEq in D5-1/2NS 1,000 ML IV SCH ×4 (00:13→20:41)
[2019-03-16 07:21] LABS: BASO % 0.7 % (0.0-2.0); EOS # 0.2 K/uL (0.0-0.7); EOS % 3.6 % (0.0-4.0); HEMOGLOBIN 15.2 g/dL (12.0-18.0); LYMPH # 1.5 K/uL (1.0-4.3); MEAN CELL VOLUME 93.3 fl (80.0-94.0); MEAN CORPUSCULAR HEMOGLOBIN 31.4 pg (27.0-31.0); MEAN CORPUSCULAR HGB CONC 33.7 g/dL (33.0-37.0); MEAN PLATELET VOLUME 7.1 fl (7.2-11.7); MONO # 0.7 K/uL (0.0-0.8); MONO % 12.8 % (0.0-10.0); NEUT # 2.7 K/uL (1.8-7.0); NEUT % 52.9 % (50.0-75.0); NRBC % 0.1 % (0.0-0.0); RBC 4.83 Mil/uL (4.40-5.90); RED CELL DISTRIBUTION WIDTH 12.8 % (11.5-14.5); WHITE BLOOD COUNT 5.2 K/uL (4.8-10.8)
[2019-03-16 08:10] LABS: BLOOD UREA NITROGEN 8 mg/dl (9-20); CALCIUM 8.8 mg/dL (8.4-10.2); GFR NON-AFRICAN AMERICAN > 60
[2019-03-16] MEDS: Enoxaparin 40 mg Syringe SC SCH (08:13)
[2019-03-16] MEDS: Metoprolol Succinate 25 mg XL Tab PO SCH (08:14)
[2019-03-16] MEDS: Insulin Lispro (humaLOG) 100 Units/ml Inj SC SCH ×4 (08:15→22:40)
--- NOTE | 2019-03-16 08:51 | CP.PCM.PN ---
<JacielSaravanan - Last Filed: 03/16/19 08:46> Subjective - Date & Time of Evaluation Date of Evaluation: 03/16/19 Time of Evaluation: 08:46 - Subjective Subjective: HBP Surgery Progress note. Dr. Todd Pt seen and examined at bedside. No acute events overnight. Patient obtained 100ml of omnipaque 350mg/ml overnight and abd xray 2 hours after with contrast likely in colon. AM abd Xray pending. Patient denies any new complaints. Denies any N/V. Reports flatus. Had one small BM yesterday after enema, but no BM since. Objective - Vital Signs/Intake and Output Vital Signs (last 24 hours): Temp Pulse Resp BP Pulse Ox 98.2 F 55 L 18 145/82 97 03/16/19 00:09 03/16/19 00:09 03/16/19 00:09 03/16/19 00:09 03/16/19 00:09 - Medications Medications: Current Medications Acetaminophen (Tylenol 325mg Tab) 650 mg PO Q6 PRN PRN Reason: Fever >100.4 F Acetaminophen (Tylenol 325mg Tab) 650 mg PO Q6 PRN PRN Reason: Pain, Mild (1-3) Albuterol/Ipratropium (Duoneb 3 Mg/0.5 Mg (3 Ml) Ud) 3 ml INH RQ4 PRN PRN Reason: Shortness of Breath Aspirin (Ecotrin) 81 mg PO DAILY [facility] Last Admin: 03/16/19 08:14 Dose: 81 mg Atorvastatin Calcium (Lipitor) 20 mg PO DAILY [facility] Last Admin: 03/16/19 08:14 Dose: 20 mg Dextrose (Dextrose 50% Inj) 0 ml IV STAT PRN; Protocol PRN Reason: Hypoglycemia Protocol Last Admin: 03/14/19 05:57 Dose: 50 ml Dextrose (Glutose 15) 0 gm PO ONCE PRN; Protocol PRN Reason: Hypoglycemia Protocol Enoxaparin Sodium (Lovenox) 40 mg SC DAILY [facility]; Protocol Last Admin: 03/16/19 08:13 Dose: 40 mg Fluticasone Propionate (Flonase) 2 spr ARLETH DAILY [facility] Last Admin: 03/16/19 08:13 Dose: 2 spr Glucagon (Glucagen Diagnostic Kit) 0 mg IM STAT PRN; Protocol PRN Reason: Hypoglycemia Protocol Hydromorphone HCl (Dilaudid) 0.5 mg IVP Q4H PRN PRN Reason: Pain, severe (8-10) Potassium Chloride/Dextrose/Sod Cl (Potassium Chl 20 Meq In D5-1/2ns) 1,000 mls @ 100 mls/hr IV .Q10H [facility] Stop: 03/17/19 10:00 Last Admin: 03/16/19 00:13 Dose: Not Given Insulin Human Lispro (Humalog) 0 units SC [facility]; Protocol Last Admin: 03/16/19 08:15 Dose: Not Given Isosorbide Mononitrate (Imdur Er) 30 mg PO DAILY [facility] Last Admin: 03/16/19 08:14 Dose: 30 mg Ketorolac Tromethamine (Toradol) 15 mg IVP Q6 PRN PRN Reason: Pain, moderate (4-7) Metoprolol Succinate (Toprol Xl) 25 mg PO DAILY [facility] Last Admin: 03/16/19 08:14 Dose: 25 mg Montelukast Sodium (Singulair) 10 mg PO HS [facility] Last Admin: 03/15/19 21:15 Dose: Not Given Ondansetron HCl (Zofran Inj) 4 mg IVP Q6 PRN PRN Reason: Nausea/Vomiting Pantoprazole Sodium (Protonix Inj) 40 mg IVP DAILY [facility] Last Admin: 03/16/19 08:14 Dose: 40 mg - Labs Labs: 03/16/19 05:10 03/16/19 05:10 - Constitutional Appears: Well, Non-toxic, No Acute Distress - Head Exam Head Exam: ATRAUMATIC, NORMAL INSPECTION, NORMOCEPHALIC - Eye Exam Eye Exam: EOMI, Normal appearance. absent: Scleral icterus - ENT Exam ENT Exam: Mucous Membranes Moist - Respiratory Exam Respiratory Exam: NORMAL BREATHING PATTERN. absent: Accessory Muscle Use, Respiratory Distress - Cardiovascular Exam Cardiovascular Exam: RRR. absent: JVD - GI/Abdominal Exam GI & Abdominal Exam: Soft. absent: Distended, Firm, Guarding, Tenderness, Rebound - Back Exam Back Exam: vertebral tenderness. absent: NORMAL INSPECTION - Neurological Exam Neurological Exam: Alert, Awake, Oriented x3 - Psychiatric Exam Psychiatric exam: Normal Affect, Normal Mood - Skin Skin Exam: Dry, Intact, Warm Assessment and Plan - Assessment and Plan (Free Text) Assessment: 73yo M with possible SBO. Plan: - Abx Xray with contrast in colon. - D/C NGT - repeat Fleet enema - May consider advancing diet if doing well later today - IVF Further recs as per Dr. Leone PGY2 surgery <JeanieFarzad An - Last Filed: 03/17/19 12:22> Objective - Vital Signs/Intake and Output Vital Signs (last 24 hours): Temp Pulse Resp BP Pulse Ox 98 F 57 L 20 127/87 96 03/17/19 08:38 03/17/19 08:40 03/17/19 08:38 03/17/19 08:38 03/17/19 08:38 Intake and Output: 03/17/19 03/17/19 06:59 18:59 Intake Total 1300 Balance 1300 - Medications Medications: Current Medications Acetaminophen (Tylenol 325mg Tab) 650 mg PO Q6 PRN PRN Reason: Fever >100.4 F Acetaminophen (Tylenol 325mg Tab) 650 mg PO Q6 PRN PRN Reason: Pain, Mild (1-3) Albuterol/Ipratropium (Duoneb 3 Mg/0.5 Mg (3 Ml) Ud) 3 ml INH RQ4 PRN PRN Reason: Shortness of Breath Aspirin (Ecotrin) 81 mg PO DAILY [facility] Last Admin: 03/17/19 08:37 Dose: 81 mg Atorvastatin Calcium (Lipitor) 20 mg PO DAILY [facility] Last Admin: 03/17/19 08:38 Dose: 20 mg Dextrose (Dextrose 50% Inj) 0 ml IV STAT PRN; Protocol PRN Reason: Hypoglycemia Protocol Last Admin: 03/14/19 05:57 Dose: 50 ml Dextrose (Glutose 15) 0 gm PO ONCE PRN; Protocol PRN Reason: Hypoglycemia Protocol Docusate Sodium (Colace) 100 mg PO BID [facility] Last Admin: 03/17/19 08:37 Dose: 100 mg Enoxaparin Sodium (Lovenox) 40 mg SC DAILY [facility]; Protocol Last Admin: 03/17/19 08:38 Dose: 40 mg Fluticasone Propionate (Flonase) 2 spr ARLETH DAILY [facility] Last Admin: 03/17/19 08:37 Dose: 2 spr Glucagon (Glucagen Diagnostic Kit) 0 mg IM STAT PRN; Protocol PRN Reason: Hypoglycemia Protocol Hydromorphone HCl (Dilaudid) 0.5 mg IVP Q4H PRN PRN Reason: Pain, severe (8-10) Insulin Human Lispro (Humalog) 0 units SC [facility]; Protocol Last Admin: 03/17/19 12:06 Dose: Not Given Isosorbide Mononitrate (Imdur Er) 30 mg PO DAILY [facility] Last Admin: 03/17/19 08:38 Dose: 30 mg Ketorolac Tromethamine (Toradol) 15 mg IVP Q6 PRN PRN Reason: Pain, moderate (4-7) Metoprolol Succinate (Toprol Xl) 25 mg PO DAILY [facility] Last Admin: 03/17/19 08:40 Dose: Not Given Montelukast Sodium (Singulair) 10 mg PO HS [facility] Last Admin: 03/16/19 22:43 Dose: 10 mg Ondansetron HCl (Zofran Inj) 4 mg IVP Q6 PRN PRN Reason: Nausea/Vomiting Pantoprazole Sodium (Protonix Inj) 40 mg IVP DAILY [facility] Last Admin: 03/17/19 08:38 Dose: 40 mg Polyethylene Glycol (Miralax) 17 gm PO DAILY [facility] Last Admin: 03/17/19 08:37 Dose: 17 gm Sennosides (Senokot Tab) 8.6 mg PO BID [facility] Last Admin: 03/17/19 08:39 Dose: 8.6 mg - Labs Labs: 03/17/19 05:20 03/17/19 05:20 Assessment and Plan - Assessment and Plan (Free Text) Plan: All medical record entries made by the resident were at my direction. I have reviewed the chart and agree that the record accurately reflects my personal performance of the history, physical exam, and medical decision making.
--- NOTE | 2019-03-16 11:23 | PN ---
DATE: 03/16/2019 SUBJECTIVE: The patient is seen and examined. Interim events noted. Consults noted and appreciated. Surgical followup and intervention noted and appreciated. The patient remains in regular medical floor with NG tube. The patient feels okay, admits to having bowel movement. No chest pain. No shortness of breath. No abdominal pain. PHYSICAL EXAMINATION: GENERAL: The patient is in no acute distress. VITAL SIGNS: Stable. HEART: S1 and S2, normal and regular. LUNGS: Good bilateral air exchange. ABDOMEN: Soft and nontender. No sign of acute abdomen. No guarding. No rigidity. No rebound. Bowel sounds are present. EXTREMITIES: No edema. No calf swelling. No tenderness. No acute ischemia. CENTRAL NERVOUS SYSTEM: Essentially unchanged. DIAGNOSTIC DATA: Available diagnostic data reviewed. ASSESSMENT AND PLAN: Overall, the patient's general medical condition seems to be slowly improving. Plan as ordered. Shoaib Guerrero MD
--- NOTE | 2019-03-16 11:26 | RAD ---
Date of service: 03/15/2019 HISTORY: possible obstruction COMPARISON: None available. TECHNIQUE: 1 view obtained. FINDINGS: BOWEL: Contrast in the colon which appears not obstructed. Nasogastric tube in the proximal stomach with the side hole at the gastroesophageal junction. BONES: Normal. OTHER FINDINGS: Postoperative/surgical clips mid abdomen and left upper quadrant. IMPRESSION: No visible free air or obstruction.
--- NOTE | 2019-03-16 11:40 | RAD ---
Date of service: 03/16/2019 HISTORY: possible obstruction COMPARISON: March 15, 2019. 22:44. TECHNIQUE: 1 view obtained. FINDINGS: BOWEL: Contrast identified in nondistended colon. Nasogastric tube again identified in the stomach. BONES: Normal. OTHER FINDINGS: None. IMPRESSION: No significant interval change compared to the prior examination(s).
[2019-03-16] MEDS: POLYETHYLENE GLYCOL 3350 17 GM/Dose PACKET PO SCH (12:26)
[2019-03-16 23:31] VITALS: RESP 20
[2019-03-17] MEDS: Potassium Ch 20mEq in D5-1/2NS 1,000 ML IV SCH (01:53)
[2019-03-17 06:53] LABS: HEMOGLOBIN 15.3 g/dL (12.0-18.0); MEAN CELL VOLUME 93.7 fl (80.0-94.0); MEAN CORPUSCULAR HEMOGLOBIN 31.3 pg (27.0-31.0); MEAN CORPUSCULAR HGB CONC 33.4 g/dL (33.0-37.0); RBC 4.9 Mil/uL (4.40-5.90); RED CELL DISTRIBUTION WIDTH 13.1 % (11.5-14.5); WHITE BLOOD COUNT 6.8 K/uL (4.8-10.8)
[2019-03-17 07:03] LABS: ALB/GLOB RATIO 1.4 (1.0-2.1); ALBUMIN 3.8 g/dL (3.5-5.0); ALT/SGPT 33 U/L (21-72); AST/SGOT 44 U/L (17-59); BLOOD UREA NITROGEN 5 mg/dl (9-20); CALCIUM 8.8 mg/dL (8.4-10.2); GFR NON-AFRICAN AMERICAN > 60
[2019-03-17] MEDS: POLYETHYLENE GLYCOL 3350 17 GM/Dose PACKET PO SCH (08:37)
[2019-03-17] MEDS: Insulin Lispro (humaLOG) 100 Units/ml Inj SC SCH ×4 (08:37→21:49)
[2019-03-17] MEDS: Enoxaparin 40 mg Syringe SC SCH (08:38)
[2019-03-17] MEDS: Metoprolol Succinate 25 mg XL Tab PO SCH (08:40)
--- NOTE | 2019-03-17 08:59 | PN ---
DATE: 03/17/2019 SUBJECTIVE: The patient was seen and examined. Interim events noted. Consults noted and appreciated. Surgical followup and intervention noted and appreciated. The patient tolerated liquid diet and also had bowel movement. Denies any chest pain or shortness of breath. Also denies any abdominal pain and sleeps much better. The patient's NG tube was pulled. The patient does move bowels and also passing gas. PHYSICAL EXAMINATION: GENERAL: The patient is in no acute distress. VITAL SIGNS: Stable. HEART: S1, S2. Normal, regular. LUNGS: Good bilateral air exchange. ABDOMEN: Soft, nontender. No sign of acute abdomen. No guarding. No rigidity. No rebound. Bowel sounds are present and normal. EXTREMITIES: No edema. No calf swelling, no tenderness, no acute ischemia. CENTRAL NERVOUS SYSTEM: Essentially unchanged. DIAGNOSTIC DATA: Available diagnostic data reviewed. Overall, the patient is slowly improving. Plan as ordered. Shoaib Guerrero MD
--- NOTE | 2019-03-17 09:27 | CP.PCM.PN ---
<Saravanan Grissom - Last Filed: 03/17/19 09:24> Subjective - Date & Time of Evaluation Date of Evaluation: 03/17/19 Time of Evaluation: 08:21 - Subjective Subjective: Surgery Progress note. Dr. Todd Pt seen and examined at bedside. No acute events overnight. Reports having flatus and BMs yesterday. Denies any abdominal pain. No N/V. No new complaints. States that he is hungry and would like to eat regular food. Objective - Vital Signs/Intake and Output Vital Signs (last 24 hours): Temp Pulse Resp BP Pulse Ox 98 F 57 L 20 127/87 96 03/17/19 08:38 03/17/19 08:40 03/17/19 08:38 03/17/19 08:38 03/17/19 08:38 Intake and Output: 03/17/19 03/17/19 06:59 18:59 Intake Total 1300 Balance 1300 - Medications Medications: Current Medications Acetaminophen (Tylenol 325mg Tab) 650 mg PO Q6 PRN PRN Reason: Fever >100.4 F Acetaminophen (Tylenol 325mg Tab) 650 mg PO Q6 PRN PRN Reason: Pain, Mild (1-3) Albuterol/Ipratropium (Duoneb 3 Mg/0.5 Mg (3 Ml) Ud) 3 ml INH RQ4 PRN PRN Reason: Shortness of Breath Aspirin (Ecotrin) 81 mg PO DAILY [facility] Last Admin: 03/17/19 08:37 Dose: 81 mg Atorvastatin Calcium (Lipitor) 20 mg PO DAILY [facility] Last Admin: 03/17/19 08:38 Dose: 20 mg Dextrose (Dextrose 50% Inj) 0 ml IV STAT PRN; Protocol PRN Reason: Hypoglycemia Protocol Last Admin: 03/14/19 05:57 Dose: 50 ml Dextrose (Glutose 15) 0 gm PO ONCE PRN; Protocol PRN Reason: Hypoglycemia Protocol Docusate Sodium (Colace) 100 mg PO BID [facility] Last Admin: 03/17/19 08:37 Dose: 100 mg Enoxaparin Sodium (Lovenox) 40 mg SC DAILY [facility]; Protocol Last Admin: 03/17/19 08:38 Dose: 40 mg Fluticasone Propionate (Flonase) 2 spr ARLETH DAILY [facility] Last Admin: 03/17/19 08:37 Dose: 2 spr Glucagon (Glucagen Diagnostic Kit) 0 mg IM STAT PRN; Protocol PRN Reason: Hypoglycemia Protocol Hydromorphone HCl (Dilaudid) 0.5 mg IVP Q4H PRN PRN Reason: Pain, severe (8-10) Potassium Chloride/Dextrose/Sod Cl (Potassium Chl 20 Meq In D5-1/2ns) 1,000 mls @ 100 mls/hr IV .Q10H [facility] Stop: 03/17/19 10:00 Last Admin: 03/17/19 01:53 Dose: 100 mls/hr Insulin Human Lispro (Humalog) 0 units SC ACHS [facility]; Protocol Last Admin: 03/17/19 08:37 Dose: Not Given Isosorbide Mononitrate (Imdur Er) 30 mg PO DAILY [facility] Last Admin: 03/17/19 08:38 Dose: 30 mg Ketorolac Tromethamine (Toradol) 15 mg IVP Q6 PRN PRN Reason: Pain, moderate (4-7) Metoprolol Succinate (Toprol Xl) 25 mg PO DAILY [facility] Last Admin: 03/17/19 08:40 Dose: Not Given Montelukast Sodium (Singulair) 10 mg PO HS [facility] Last Admin: 03/16/19 22:43 Dose: 10 mg Ondansetron HCl (Zofran Inj) 4 mg IVP Q6 PRN PRN Reason: Nausea/Vomiting Pantoprazole Sodium (Protonix Inj) 40 mg IVP DAILY [facility] Last Admin: 03/17/19 08:38 Dose: 40 mg Polyethylene Glycol (Miralax) 17 gm PO DAILY [facility] Last Admin: 03/17/19 08:37 Dose: 17 gm Sennosides (Senokot Tab) 8.6 mg PO BID [facility] Last Admin: 03/17/19 08:39 Dose: 8.6 mg - Labs Labs: 03/17/19 05:20 03/17/19 05:20 - Constitutional Appears: Well, Non-toxic, No Acute Distress - Head Exam Head Exam: ATRAUMATIC, NORMAL INSPECTION, NORMOCEPHALIC - Eye Exam Eye Exam: EOMI, Normal appearance. absent: Scleral icterus - ENT Exam ENT Exam: Mucous Membranes Moist - Respiratory Exam Respiratory Exam: NORMAL BREATHING PATTERN. absent: Accessory Muscle Use, Respiratory Distress - Cardiovascular Exam Cardiovascular Exam: RRR. absent: JVD - GI/Abdominal Exam GI & Abdominal Exam: Soft. absent: Distended, Guarding, Tenderness, Rebound Additional comments: Abd soft, non-tender, non-distended. - Extremities Exam Extremities Exam: Normal Inspection. absent: Calf Tenderness - Neurological Exam Neurological Exam: Alert, Awake, Oriented x3 - Psychiatric Exam Psychiatric exam: Normal Affect, Normal Mood - Skin Skin Exam: Dry, Intact, Normal Color, Warm Assessment and Plan - Assessment and Plan (Free Text) Assessment: 73yo M w partial SBO; resolved Plan: - Having BMs. - Will advance diet to soft today. Advance diet as tolerated - Continue home bowel regimen - Encourage Ambulation - No further surgical intervention warranted at this time - Please call surgery resident with any concerns Further recs as per Dr. Leone PGY2 surgery <Farzad Ware - Last Filed: 03/17/19 12:15> Objective - Vital Signs/Intake and Output Vital Signs (last 24 hours): Temp Pulse Resp BP Pulse Ox 98 F 57 L 20 127/87 96 03/17/19 08:38 03/17/19 08:40 03/17/19 08:38 03/17/19 08:38 03/17/19 08:38 Intake and Output: 03/17/19 03/17/19 06:59 18:59 Intake Total 1300 Balance 1300 - Medications Medications: Current Medications Acetaminophen (Tylenol 325mg Tab) 650 mg PO Q6 PRN PRN Reason: Fever >100.4 F Acetaminophen (Tylenol 325mg Tab) 650 mg PO Q6 PRN PRN Reason: Pain, Mild (1-3) Albuterol/Ipratropium (Duoneb 3 Mg/0.5 Mg (3 Ml) Ud) 3 ml INH RQ4 PRN PRN Reason: Shortness of Breath Aspirin (Ecotrin) 81 mg PO DAILY [facility] Last Admin: 03/17/19 08:37 Dose: 81 mg Atorvastatin Calcium (Lipitor) 20 mg PO DAILY [facility] Last Admin: 03/17/19 08:38 Dose: 20 mg Dextrose (Dextrose 50% Inj) 0 ml IV STAT PRN; Protocol PRN Reason: Hypoglycemia Protocol Last Admin: 03/14/19 05:57 Dose: 50 ml Dextrose (Glutose 15) 0 gm PO ONCE PRN; Protocol PRN Reason: Hypoglycemia Protocol Docusate Sodium (Colace) 100 mg PO BID [facility] Last Admin: 03/17/19 08:37 Dose: 100 mg Enoxaparin Sodium (Lovenox) 40 mg SC DAILY [facility]; Protocol Last Admin: 03/17/19 08:38 Dose: 40 mg Fluticasone Propionate (Flonase) 2 spr ARLETH DAILY [facility] Last Admin: 03/17/19 08:37 Dose: 2 spr Glucagon (Glucagen Diagnostic Kit) 0 mg IM STAT PRN; Protocol PRN Reason: Hypoglycemia Protocol Hydromorphone HCl (Dilaudid) 0.5 mg IVP Q4H PRN PRN Reason: Pain, severe (8-10) Insulin Human Lispro (Humalog) 0 units SC [facility]; Protocol Last Admin: 03/17/19 12:06 Dose: Not Given Isosorbide Mononitrate (Imdur Er) 30 mg PO DAILY [facility] Last Admin: 03/17/19 08:38 Dose: 30 mg Ketorolac Tromethamine (Toradol) 15 mg IVP Q6 PRN PRN Reason: Pain, moderate (4-7) Metoprolol Succinate (Toprol Xl) 25 mg PO DAILY [facility] Last Admin: 03/17/19 08:40 Dose: Not Given Montelukast Sodium (Singulair) 10 mg PO HS [facility] Last Admin: 03/16/19 22:43 Dose: 10 mg Ondansetron HCl (Zofran Inj) 4 mg IVP Q6 PRN PRN Reason: Nausea/Vomiting Pantoprazole Sodium (Protonix Inj) 40 mg IVP DAILY [facility] Last Admin: 03/17/19 08:38 Dose: 40 mg Polyethylene Glycol (Miralax) 17 gm PO DAILY [facility] Last Admin: 03/17/19 08:37 Dose: 17 gm Sennosides (Senokot Tab) 8.6 mg PO BID [facility] Last Admin: 03/17/19 08:39 Dose: 8.6 mg - Labs Labs: 03/17/19 05:20 03/17/19 05:20 Assessment and Plan - Assessment and Plan (Free Text) Plan: All medical record entries made by the resident were at my direction. I have reviewed the chart and agree that the record accurately reflects my personal performance of the history, physical exam, and medical decision making.
[2019-03-17 23:29] VITALS: TEMP 98.1
[2019-03-18 06:48] LABS: HEMOGLOBIN 16.3 g/dL (12.0-18.0); MEAN CELL VOLUME 93.6 fl (80.0-94.0); MEAN CORPUSCULAR HEMOGLOBIN 31.4 pg (27.0-31.0); MEAN CORPUSCULAR HGB CONC 33.5 g/dL (33.0-37.0); RBC 5.2 Mil/uL (4.40-5.90); RED CELL DISTRIBUTION WIDTH 13.1 % (11.5-14.5); WHITE BLOOD COUNT 6.2 K/uL (4.8-10.8)
[2019-03-18 06:58] LABS: ALB/GLOB RATIO 1.4 (1.0-2.1); ALBUMIN 4.3 g/dL (3.5-5.0); ALT/SGPT 36 U/L (21-72); AST/SGOT 41 U/L (17-59); BLOOD UREA NITROGEN 13 mg/dl (9-20); CALCIUM 9.1 mg/dL (8.4-10.2); GFR NON-AFRICAN AMERICAN > 60
[2019-03-18 08:02] VITALS: BP 118/74; PULSE 74; O2SAT 99
[2019-03-18] MEDS: Insulin Lispro (humaLOG) 100 Units/ml Inj SC SCH ×2 (09:09→12:16)
[2019-03-18] MEDS: Enoxaparin 40 mg Syringe SC SCH (09:10)
[2019-03-18] MEDS: POLYETHYLENE GLYCOL 3350 17 GM/Dose PACKET PO SCH (09:10)
[2019-03-18] MEDS: Metoprolol Succinate 25 mg XL Tab PO SCH (09:11)
--- NOTE | 2019-03-18 13:29 | PN ---
DATE: 03/18/2019 SUBJECTIVE: The patient seen and examined. Interim events noted. Consults noted and appreciated. Surgery follow-up and intervention noted and appreciated. The patient remains in regular medical floor. Feels much better. Tolerated food very well. No abdominal pain, nausea, vomiting or diarrhea. PHYSICAL EXAMINATION: GENERAL: The patient is in no acute distress. VITAL SIGNS: Stable. HEART: S1, S2, normal, regular. LUNGS: Good bilateral air exchange. ABDOMEN: Soft, nontender. EXTREMITIES: No edema. No calf swelling. No tenderness. No acute ischemia. CENTRAL NERVOUS SYSTEM: Essentially unchanged. DIAGNOSTIC DATA: Available diagnostic data reviewed. ASSESSMENT AND PLAN: Overall, the patient's intestinal obstruction has resolved. The patient is medically stable. Plan as ordered. Shoaib Guerrero MD
== END 2019-03-18 14:41 | disposition home or self-care (01) | DRG 390 ==
LOC: H.ER 20:34 → H.ERHOLD 03-13 02:38 → H.MEDSURG1 03-13 03:59
PROVIDERS: ADMIT Internal Medicine; ATTEND Internal Medicine
DX: K56.600 Partial intestinal obstruction, unspecified as to cause (principal); Z79.82 Long term (current) use of aspirin; I25.10 Atherosclerotic heart disease of native coronary artery without angina pectoris; E11.9 Type 2 diabetes mellitus without complications; I11.0 Hypertensive heart disease with heart failure; I50.9 Heart failure, unspecified; R09.82 Postnasal drip; Z98.61 Coronary angioplasty status; Z87.891 Personal history of nicotine dependence; Z79.84 Long term (current) use of oral hypoglycemic drugs